=== PATIENT | female | born 1945 | race Caucasian/White ===

== ENCOUNTER → 2016-10-23 | Outpatient (CLI) | payer MEDICARE, BC ==
--- NOTE | 2016-10-23 08:16 | MM ---
Reason for exam: history of breast cancer, mastectomy. Last mammogram was performed 1 year ago. History: Patient is postmenopausal and has history of breast cancer at age 33. Family history of breast cancer in maternal aunt, breast cancer in maternal cousin at age 55, and premenopausal breast cancer in mother at age 40. Benign excisional biopsy of the right breast, December 2008. Cancelled Right Mammotome of the right breast, December 13, 2008. Mastectomy of the left breast, 1978. Took hormonal contraceptives for 2 years beginning at age 21. Took progesterone for 4 years beginning at age 55. Physical Findings: Nurse did not find any significant physical abnormalities on exam. MG Diagnostic Mammo RT w CAD CC and MLO view(s) were taken of the right breast. Prior study comparison: October 15, 2015, right breast MG 3d diag mammo w/cad RT. October 09, 2014, right breast MG diagnostic mammo RT w CAD. October 04, 2013, right diagnostic mammogram w/CAD. There are scattered fibroglandular densities. No significant new findings when compared with previous films. These results were verbally communicated with the patient and result sheet given to the patient on 10/23/16. ASSESSMENT: Negative, BI-RAD 1 RECOMMENDATION: Follow-up diagnostic mammogram of the right breast in 1 year.
== END | disposition home or self-care (01) ==
LOC: RADMAMWWP 07:38
PROVIDERS: ATTEND Internal Medicine Critical Care Medicine
DX: Z08 Encounter for follow-up examination after completed treatment for malignant neoplasm (principal); Z85.3 Personal history of malignant neoplasm of breast; Z80.3 Family history of malignant neoplasm of breast

== ENCOUNTER → 2017-03-20 | Outpatient (CLI) | payer MEDICARE, BC ==
[2017-03-20 08:25] LABS: Basophils % (A) 1 %; CH 30.8; CHCM 32.7; Eosinophils # (A) 0.1 k/uL (0-0.7); Eosinophils % (A) 3 %; HCT 38.6 % (34.0-46.0); HGB 12.4 gm/dL (11.4-16.0); Luc # (Auto) 0.16; Luc % (Auto) 3; Lymphocytes # (A) 1.3 k/uL (1.0-4.8); Lymphocytes % (A) 26 %; MCH 30.6 pg (25.0-35.0); MCHC 32.3 g/dL (31.0-37.0); MCV 94.8 fL (80.0-100.0); Monocytes # (A) 0.4 k/uL (0-1.0); Monocytes % (A) 8 %; Neutrophils # (A) 2.9 k/uL (1.3-7.7); Neutrophils % (A) 60 %; RBC 4.07 m/uL (3.80-5.40); RDW 13.9 % (11.5-15.5); WBC 4.9 k/uL (3.8-10.6); WBC (Perox) 5.03
[2017-03-20 13:09] LABS: ALT 46 U/L (9-52); AST 28 U/L (14-36); Alkaline Phosphatase 89 U/L (38-126); Anion Gap 12 mmol/L; Bilirubin, Delta 0.3 mg/dL (0.0-0.2); Blood Urea Nitrogen 18 mg/dL (7-17); Calcium 9.9 mg/dL (8.4-10.2); Carbon Dioxide 25 mmol/L (22-30); Chloride 105 mmol/L (98-107); Cholesterol 194 mg/dL (<200); Glucose 99 mg/dL (74-99); HDL Cholesterol 41 mg/dL (40-60); Non-African American GFR(MDRD) >60 (>60 ml/min/1.73 sqM); Potassium 4.7 mmol/L (3.5-5.1); Sodium 142 mmol/L (137-145); Total Bilirubin 0.6 mg/dL (0.2-1.3); Total Protein 7.4 g/dL (6.3-8.2)
[2017-03-20 15:30] LABS: Iron Saturation 29.89 (12.00-45.00)
[2017-03-20 18:26] LABS: Vitamin B12 269 pg/mL
== END | disposition home or self-care (01) ==
LOC: LABWHC1 07:37
PROVIDERS: ATTEND Internal Medicine Critical Care Medicine
DX: E78.5 Hyperlipidemia, unspecified (principal); E55.9 Vitamin D deficiency, unspecified; R79.9 Abnormal finding of blood chemistry, unspecified; R73.9 Hyperglycemia, unspecified; J45.909 Unspecified asthma, uncomplicated; I10 Essential (primary) hypertension; R53.83 Other fatigue; M85.80 Other specified disorders of bone density and structure, unspecified site
CPT/HCPCS: 36415; 80053; 80061; 82248; 82306; 82607; 82728; 83036; 83540; 83550; 84439; 84443; 85025

== ENCOUNTER 2017-06-23 09:35 | Day surgery (SDC) | payer MEDICARE, BC ==
[2017-06-23 09:51] VITALS: TEMP 97.7
[2017-06-23] MEDS ORDERED: LACTATED RINGERS 1,000 ML IV ONE (10:02)
[2017-06-23] MEDS ORDERED: ATROPINE SULFATE 0.4 MG/ML 1 ML VIAL IM ONE (10:07)
[2017-06-23] MEDS ORDERED: LIDOCAINE 1% INJ 10MG/ML (20 ML MDV) ONE (10:50)
[2017-06-23] MEDS ORDERED: MIDAZOLAM 2 MG/2 ML VIAL ONE (10:50)
[2017-06-23] MEDS ORDERED: PROPOFOL 10 MG/ML 20 ML VIAL IV ONE (10:50)
[2017-06-23 11:27] VITALS: RESP 18
[2017-06-23 11:29] VITALS: BP 119/78; PULSE 102
[2017-06-23 17:37] LABS: RBC, Body Fluid 2 /uL
--- NOTE | 2017-06-23 19:53 | OP ---
OPERATIVE REPORT PROCEDURE: Bronchoscopy, airway examination and therapeutic lavage, bronchoalveolar lavage, right lower lobe PREOPERATIVE DIAGNOSIS: Acute bronchitis. POSTOPERATIVE DIAGNOSIS: Acute bronchitis. There was informed consent and universal timeout. The patient's procedure took place in room #1, [facility]. CHANGE HOUSE ATTENDANT provided unconscious sedation/general anesthesia. PROCEDURE DESCRIPTION: After the patient was adequately sedated and being fully monitored, the bronchoscope was inserted through the left nostril. It passed through the left nasopharynx into the oropharynx. The hypopharynx was identified and topicalized. The hypopharyngeal structures, including anterior commissure, true cords, false cords, arytenoids, piriform sinuses, right and left valleculae and epiglottis, all appeared normal. After topicalization, the bronchoscope was passed through the glottic opening into the trachea. Trachea appeared normal. Tracheal leni was sharp. There were some secretions noted in the right and left mainstem. The right and left mainstem were topicalized. Right upper lobe and its 3 segments, the right middle lobe and its 2 segments, right lower lobe and its 5 segments, the left upper lobe proper and its 2 segments, the lingula and its 2 segments and the left lower lobe and its 4 segments were all found to have similar findings of diffuse bronchitis. There was diffuse erythema and hyperemia in the airways. There was some mild mucosal friability. There were some thick yellow secretions noted, particularly in the right upper lobe, right lower lobe and to a lesser extent in the right middle lobe, left upper lobe proper and lingula as well as in the left lower lobe. The patient had the bronchoscope wedged into the right lower lobe, which is where most of the secretions were noted. BAL took place. Patient tolerated the procedure well. Next, saline was used to suction the rest of the airways. The patient tolerated the procedure well. The bronchoscope was withdrawn. There were no immediate complications. MMODL / IJN: [id number] /
[2017-06-24] MEDS ORDERED: ATROPINE SULFATE 0.4 MG/ML 1 ML VIAL IM ONE (05:00)
[2017-06-24] MEDS ORDERED: LACTATED RINGERS 1,000 ML IV ONE (05:00)
[2017-06-24] MEDS ORDERED: LIDOCAINE 2% (PF) 20 MG/ML 2 ML AMP INHALATION ONE (05:00)
[2017-06-24] MEDS ORDERED: ALBUTEROL NEB (CONC) 2.5 MG/0.5 ML INHALATION ONE (05:00)
== END 2017-06-23 12:00 | disposition home or self-care (01) ==
LOC: ORWHC2ENDO 09:35
PROVIDERS: ATTEND Internal Medicine Critical Care Medicine
DX: J20.9 Acute bronchitis, unspecified (principal); Z85.3 Personal history of malignant neoplasm of breast; J45.909 Unspecified asthma, uncomplicated; E03.9 Hypothyroidism, unspecified; F41.9 Anxiety disorder, unspecified; I48.91 Unspecified atrial fibrillation; E78.00 Pure hypercholesterolemia, unspecified; Z82.49 Family history of ischemic heart disease and other diseases of the circulatory system; Z80.3 Family history of malignant neoplasm of breast; Z79.51 Long term (current) use of inhaled steroids; Z79.899 Other long term (current) drug therapy; Z88.8 Allergy status to other drugs, medicaments and biological substances
CPT/HCPCS: 94640; 88108; 88305; 89050; 87252; 87070; 87205; 87116; 87102; 87206; 31624; J2250; J0461; J2001 ×2; J2704; 87496; 87498; 87502; 87529; 87798

== ENCOUNTER → 2018-03-19 | Outpatient (CLI) | payer MEDICARE, BC ==
--- NOTE | 2018-03-19 10:30 | MM ---
Reason for exam: additional evaluation requested from prior study. Last mammogram was performed 1 year and 5 months ago. History: Patient is postmenopausal and has history of breast cancer at age 33. Family history of breast cancer in maternal aunt, breast cancer in maternal cousin at age 55, and premenopausal breast cancer in mother at age 40. Benign excisional biopsy of the right breast, December 2008. Cancelled Right Mammotome of the right breast, December 13, 2008. Mastectomy of the left breast, 1978. Took hormonal contraceptives for 2 years beginning at age 21. Took progesterone for 4 years beginning at age 55. Physical Findings: Nurse did not find any significant physical abnormalities on exam. MG 3D Diag Mammo W/Cad RT CC, MLO, spot compression CC, spot compression MLO, and ML view(s) were taken of the right breast. Prior study comparison: October 23, 2016, right breast MG diagnostic mammo RT w CAD. October 15, 2015, right breast MG 3d diag mammo w/cad RT. There are scattered fibroglandular densities. Nodular density upper outer quadrant right breast is noted. On additional views appears less conspicious. These results were verbally communicated with the patient and result sheet given to the patient on 03/19/18. ASSESSMENT: Incomplete: need additional imaging evaluation, BI-RAD 0 RECOMMENDATION: Ultrasound of the right breast.
--- NOTE | 2018-03-19 10:31 | USB ---
Reason for exam: additional evaluation requested from abnormal screening. History: Patient is postmenopausal and has history of breast cancer at age 33. Family history of breast cancer in maternal aunt, breast cancer in maternal cousin at age 55, and premenopausal breast cancer in mother at age 40. Benign excisional biopsy of the right breast, December 2008. Cancelled Right Mammotome of the right breast, December 13, 2008. Mastectomy of the left breast, 1978. Took hormonal contraceptives for 2 years beginning at age 21. Took progesterone for 4 years beginning at age 55. US Breast Limited RT Right limited breast ultrasound including focal area of concern, retroareolar and axilla demonstrates no cystic or solid lesion seen. These results were verbally communicated with the patient and result sheet given to the patient on 03/19/18. ASSESSMENT: Probably benign, BI-RAD 3 RECOMMENDATION: Follow-up diagnostic mammogram of the right breast in 6 months.
== END | disposition home or self-care (01) ==
LOC: RADMAMWWP 08:11
PROVIDERS: ATTEND Internal Medicine Critical Care Medicine
DX: R92.8 Other abnormal and inconclusive findings on diagnostic imaging of breast (principal); Z85.3 Personal history of malignant neoplasm of breast
CPT/HCPCS: 77065; 76642; G0279; 77061

== ENCOUNTER → 2018-07-17 | Outpatient (CLI) | payer MEDICARE, BC ==
[2018-07-17 09:09] LABS: Basophils % (A) 1 %; Eosinophils # (A) 0.2 k/uL (0-0.7); Eosinophils % (A) 4 %; HCT 39.2 % (34.0-46.0); HGB 12.5 gm/dL (11.4-16.0); Lymphocytes # (A) 1.4 k/uL (1.0-4.8); Lymphocytes % (A) 33 %; MCH 29.8 pg (25.0-35.0); MCV 93.2 fL (80.0-100.0); Mean Platelet Volume 7.3; Monocytes # (A) 0.3 k/uL (0-1.0); Monocytes % (A) 7 %; Neutrophils # (A) 2.3 k/uL (1.3-7.7); Neutrophils % (A) 53 %; Platelet Count 330 k/uL (150-450); RDW 12.9 % (11.5-15.5); WBC 4.4 k/uL (3.8-10.6)
[2018-07-17 17:06] LABS: Albumin 4.4 g/dL (3.80-4.90); Albumin/Globulin Ratio 1.69 (1.20-2.10); Anion Gap 7.1 mmol/L (4.00-12.00); Calcium 9.9 mg/dL (8.7-10.3); Carbon Dioxide 29.9 mmol/L (21.6-31.8); Globulin 2.6 g/dL (1.6-3.3); Total Bilirubin 0.3 mg/dL (0.2-1.2)
[2018-07-17 20:19] LABS: Hemoglobin A1C 6.1 % (4.0-6.0)
== END | disposition home or self-care (01) ==
LOC: LABWHC1 08:38
PROVIDERS: ATTEND Internal Medicine Critical Care Medicine
DX: I10 Essential (primary) hypertension (principal); E78.2 Mixed hyperlipidemia; E03.9 Hypothyroidism, unspecified; F41.9 Anxiety disorder, unspecified; E55.9 Vitamin D deficiency, unspecified; R73.9 Hyperglycemia, unspecified; Z85.3 Personal history of malignant neoplasm of breast
CPT/HCPCS: 36415; 80053; 80061; 82306; 83036; 84439; 84443; 85025

== ENCOUNTER → 2018-10-06 | Outpatient (CLI) | payer MEDICARE, BC ==
--- NOTE | 2018-10-06 09:51 | MM ---
Reason for exam: follow-up at short interval from prior study. Last mammogram was performed 7 months ago. History: Patient is postmenopausal and has history of breast cancer at age 33. Family history of breast cancer in maternal aunt, breast cancer in maternal cousin at age 55, and premenopausal breast cancer in mother at age 45. Benign excisional biopsy of the right breast, December 2008. Cancelled Right Mammotome of the right breast, December 13, 2008. Mastectomy of the left breast, 1978. Took hormonal contraceptives for 2 years beginning at age 21. Took progesterone for 4 years beginning at age 55. Physical Findings: Nurse did not find any significant physical abnormalities on exam. MG 3D Diag Mammo W/Cad RT CC, MLO, and ML view(s) were taken of the right breast. Prior study comparison: March 19, 2018, right breast MG 3d diag mammo w/cad RT. October 23, 2016, right breast MG diagnostic mammo RT w CAD. Finding: Architectural distortion in the upper outer quadrant of the right breast consistent with excision biopsy in 2008. There is no discrete abnormality. These results were verbally communicated with the patient and result sheet given to the patient on 10/06/18. ASSESSMENT: Benign, BI-RAD 2 RECOMMENDATION: Follow-up diagnostic mammogram of the right breast in 1 year.
== END | disposition home or self-care (01) ==
LOC: RADMAMWWP 07:26
PROVIDERS: ATTEND Internal Medicine Critical Care Medicine
DX: R92.8 Other abnormal and inconclusive findings on diagnostic imaging of breast (principal); Z85.3 Personal history of malignant neoplasm of breast
CPT/HCPCS: 77065; G0279; 77061

== ENCOUNTER → 2019-05-02 | Outpatient (CLI) | payer MEDICARE, BC ==
--- NOTE | 2019-05-02 18:17 | MR ---
EXAMINATION TYPE: MR knee RT wo con DATE OF EXAM: 05/02/2019 COMPARISON: None HISTORY: Bandar knee pain TECHNIQUE: Multiplanar, multisequence imaging of the right knee is performed without IV contrast. FINDINGS: MEDIAL MENISCUS: There is grade 3 abnormal signal involving the posterior horn of the medial meniscus compatible with a tear. LATERAL MENISCUS: Anterior and posterior horns are intact without tear. CRUCIATE LIGAMENTS: The anterior and posterior cruciate ligaments are intact and unremarkable. COLLATERAL LIGAMENTS: Lateral collateral ligament is intact. There is signal surrounding the medial c ollateral ligament compatible with a MCL strain with no definite tear. EXTENSOR MECHANISM: Visualized quadriceps and patellar tendons are intact. EFFUSION: No significant suprapatellar joint effusion. POPLITEAL CYST: There is a 1.4 x 1 x 3.6 cm popliteal fossa cyst.. TRICOMPARTMENT SPACES: There is narrowing of the patellofemoral joint as well as the medial and later al compartment of the knee joint with most marked findings involving the medial compartment. There is grade III chondromalacia involving the articular femoral cartilage involving the medial compartment and involving both the medial and lateral patellar facets. No erosive changes. BONE MARROW SIGNAL: No focal abnormal marrow signal is appreciated. IMPRESSION: 1. Osteoarthritis with grade III chondromalacia involving patellofemoral cartilage and medial articul ar femoral cartilage. 2. Posterior horn medial meniscal tear. 3. MCL strain with no definite tear. 4. Popliteal fossa cyst measuring 1.4 x 1 x 3.6 cm
--- NOTE | 2019-05-04 15:23 | MR ---
EXAMINATION TYPE: MR knee LT wo con DATE OF EXAM: 05/02/2019 COMPARISON: None HISTORY: Bandar knee pain TECHNIQUE: Multiplanar, multisequence imaging of the left knee is performed without IV contrast. FINDINGS: MEDIAL MENISCUS: There is PseudoExtrusion of the medial meniscus with a complex tear involving the po sterior horn and body. LATERAL MENISCUS: Simple linear tear of the posterior horn lateral meniscus. CRUCIATE LIGAMENTS: Posterior cruciate ligament is intact. The anterior cruciate ligament also appear s to be intact. There is some ill definition the posterior fibers which could be related to an ACL st rain. COLLATERAL LIGAMENTS: The medial collateral ligament and lateral collateral ligament complex are inta ct and unremarkable. EXTENSOR MECHANISM: Visualized quadriceps and patellar tendons are intact. EFFUSION: Small amount of fluid is seen in the suprapatellar bursa.. POPLITEAL CYST: There is a 1.5 x 2.7 x 4.9 cm popliteal fossa cyst which contains heterogeneous sign al may represent a complicated cyst. TRICOMPARTMENT SPACES: There is marked narrowing of the medial compartment of the knee joint and chanel llofemoral joint with hypertrophic spurring. No erosive changes. There is cartilage loss involving th e medial patellar facet and medial femoral articular cartilage compatible with grade III chondromalac ia. BONE MARROW SIGNAL: There is abnormal signal within the medial tibial plateau which likely is reactiv e bone marrow edema secondary to severe arthritic changes. IMPRESSION: 1. Severe osteoarthritis. Findings result in grade III chondromalacia of the medial femoral and tibia l articular cartilage and medial patellar facet. 2. Complex tear posterior horn and body medial meniscus likely degenerative secondary to severe osteo arthritic changes with PseudoExtrusion of the meniscus. 3. Simple linear tear posterior horn lateral meniscus. 4. Complicated popliteal fossa cyst containing heterogeneous signal. There may be a soft tissue ossif ication or previous hemorrhage within the cyst correlate clinically.
== END | disposition home or self-care (01) ==
LOC: RADMRIMAIN 17:11
PROVIDERS: ATTEND Internal Medicine Critical Care Medicine
DX: S83.241A Other tear of medial meniscus, current injury, right knee, initial encounter (principal); S83.411A Sprain of medial collateral ligament of right knee, initial encounter; S83.232A Complex tear of medial meniscus, current injury, left knee, initial encounter; S83.282A Other tear of lateral meniscus, current injury, left knee, initial encounter; M22.41 Chondromalacia patellae, right knee; M22.42 Chondromalacia patellae, left knee; M71.22 Synovial cyst of popliteal space [Baker], left knee; M71.21 Synovial cyst of popliteal space [Baker], right knee; M17.0 Bilateral primary osteoarthritis of knee

== ENCOUNTER → 2019-08-05 | Outpatient (CLI) | payer MEDICARE, BC ==
[2019-08-05 13:09] LABS: HCT 40.7 % (34.0-46.0); HGB 12.8 gm/dL (11.4-16.0); MCH 29.7 pg (25.0-35.0); MCHC 31.6 g/dL (31.0-37.0); MCV 94.1 fL (80.0-100.0); Mean Platelet Volume 8.5; Platelet Count 368 k/uL (150-450); RBC 4.32 m/uL (3.80-5.40); RDW 12.8 % (11.5-15.5); WBC 7.1 k/uL (3.8-10.6)
[2019-08-05 13:12] LABS: Albumin 4.5 g/dL (3.5-5.0); Calcium 10.7 mg/dL (8.4-10.2); Potassium 4.7 mmol/L (3.5-5.1); Total Bilirubin 0.5 mg/dL (0.2-1.3)
[2019-08-05 13:15] LABS: INR 0.9 (<1.2); Partial Thromboplastin Time 24.1 sec (22.0-30.0); Prothrombin Time 9.7 sec (9.0-12.0)
[2019-08-05 13:16] LABS: Appearance,Urine Clear (Clear); Bilirubin,Urine Negative (Negative); Blood,Urine Negative (Negative); Color,Urine Light Yellow; Glucose,Urine (UA) Negative (Negative); Ketones,Urine Negative (Negative); Leukocyte Esterase,Urine Negative (Negative); Nitrite,Urine Negative (Negative); PH, Urine 5.5 (5.0-8.0); Protein,Urine Negative (Negative); Specific Gravity,Urine 1.008 (1.001-1.035); Urobilinogen,Urine <2.0 mg/dL (<2.0)
== END | disposition home or self-care (01) ==
LOC: LABPAT 10:34
PROVIDERS: ATTEND Orthopaedic Surgery
DX: Z01.812 Encounter for preprocedural laboratory examination (principal); Z51.81 Encounter for therapeutic drug level monitoring; Z79.01 Long term (current) use of anticoagulants
CPT/HCPCS: 36415; 80053; 81003; 85027; 85610; 85730; 87070

== ENCOUNTER 2019-08-15 08:34 | Day surgery (SDC) | payer MEDICARE, BC ==
[2019-08-09 12:52] VITALS: BMI 27.4
[~2019-08-15 08:34] MED LIST: ACETAMINOPHEN TAB 500 MG TAB PO ONE; DEXAMETHASONE SOD PHOSPHATE 10 MG/ML 1 ML VIAL IV ONE; GABAPENTIN 300 MG CAP PO ONE; LIDOCAINE 1% 20 ML VIAL (10MG/ML) FOR IV START INTRADERMA PRN; MELOXICAM 7.5 MG TAB PO ONE; MIDAZOLAM 2 MG/2 ML VIAL IV PRN; ONDANSETRON 4 MG/2 ML VIAL IVP ONE; ROPIVACAINE 246.25 MG, EPINEPHrine 0.5 MG, KETOROLAC 30 MG, cloNIDine HCL/PF 80 MCG, WA... MISCELLANE ONE; TRANEXAMIC ACID 1,000 MG in SODIUM CHLORIDE 0.9% 100 ML IVPB ONE; fentaNYL (PF) 50 MCG/ML 2 ML AMP IV PRN
[2019-08-15] MEDS: LACTATED RINGERS 1,000 ML IV SCH ×4 (09:07→23:40)
[2019-08-15] MEDS ORDERED: MIDAZOLAM 2 MG/2 ML VIAL IV ONE (09:23)
[2019-08-15] MEDS ORDERED: SODIUM CHLORIDE 0.9% 100 ML BAG ONE (09:43)
[2019-08-15] MEDS ORDERED: PHENYLEPHRINE-0.9% NACL SYG 1 MG/10 ML SYRINGE ONE (09:43)
[2019-08-15] MEDS ORDERED: fentaNYL (PF) 50 MCG/ML 2 ML AMP ONE (09:43)
[2019-08-15] MEDS ORDERED: MIDAZOLAM 2 MG/2 ML VIAL ONE (09:43)
[2019-08-15] MEDS ORDERED: TRANEXAMIC ACID 1,000 MG/10 ML VIAL ONE (09:43)
[2019-08-15] MEDS ORDERED: PROPOFOL 10 MG/ML 20 ML VIAL IV ONE (09:43)
[2019-08-15] MEDS ORDERED: ceFAZolin 3,000 MG in SODIUM CHLORIDE 0.9% IRRIGATIO 3,000 ML IRRIGATION ONE (10:18)
[2019-08-15] MEDS ORDERED: ROPIVACAINE 0.2%-NS ON-Q PUMP 1,090 MG, EMPTY PAIN BALL 1 EACH MISCELLANE PRN (10:47)
--- NOTE | 2019-08-15 11:13 | P.OP ---
Date of Procedure: 08/15/19 Preoperative Diagnosis: Severe osteoarthritis left knee Postoperative Diagnosis: Severe osteoarthritis left knee Procedure(s) Performed: Left total knee arthroplasty using [employer] patient specific guides Implants: Fox and Nephew Cruciate Retaining Journey II CR Oxinium Femoral Component size 4, left Fox & Nephew Journey Nonporous Tibial Baseplate size 2, left Fox & Nephew Journey II CR, XLPE Articular Insert, 9 mm, size 1-2 Fox & Nephew Brittany II Resurfacing Patellar Component, Oval, 29 mm All components were cemented using Palacose R bone cement. [employer] patient specific guides The articulation is Oxinium on polyethylene. Anesthesia: spinal Surgeon: Kaden Jerez Broodmare Foreman #1: Aníbal Espinoza Estimated Blood Loss (ml): 25 Pathology: other (Bone and cartilage) Condition: stable Disposition: PACU Indications for Procedure: After failure of conservative treatment we discussed the surgical and nonsurgical treatment options at length. Patient wishes to proceed with a total knee arthroplasty. Complications specific to this procedure were discussed at length, including but not limited to infection, bleeding, stiffness, and nerve injury. Patient is aware of all these complications and informed consent was obtained Operative Findings: The operative findings are consistent with severe osteoarthritis left knee Description of Procedure: Patient was seen in the preoperative area consent was reviewed and operative site was marked with a skin marker. An adductor canal pain catheter was placed by anesthesia in the preoperative area. Patient was then brought to the operating room and given preoperative antibiotics intravenously. A spinal anesthetic was administered by the anesthesia department. A tourniquet was placed on the upper thigh and the lower extremity was prepped and draped in usual sterile fashion. A gram of transexamic acid was given. A universal timeout was then performed which confirmed the patient's name, surgical site, ALLERGIES, and consent. The lower extremity was then exsanguinated and tourniquet was inflated to 250 mmHg. A standard and anterior midline approach to the knee was performed. The skin and subcutaneous tissue was dissected down to the patellar tendon. A medial parapatellar arthrotomy was then performed. The knee was then extended, the patellar was everted, and the knee was again flexed. Anterior horns of both menisci were excised, and a release was performed to the posterior medial aspect of the knee. On gross visual inspection, there was complete loss of articular cartilage in the medial and patellofemoral joint spaces. There was also significant cartilage damage in the lateral compartment. There were multiple periarticular osteophytes. The patient specific guide was placed on the distal femur, and pinned in place. Using the patient specific guide, the distal femoral cut was performed. The cutting block was then removed and the cut was checked for flatness. The appropriate 5-in-1 cutting block was then pinned in place through the holes that were drilled through the patient specific guide. The anterior condyles were cut without notching. The posterior and chamfer cuts were performed while protecting the collateral ligaments. The cutting block was then removed. Attention was then directed to the tibia. The remaining ACL was removed with a Ronguer, and the tibia was then gently subluxed forward with a large bent knee retractor. Any remaining menisci was excised. The posterior lateral corner was cauterized in order to cauterize the lateral geniculate artery. The patient specific guide for the tibia was then placed and was held in place with pins. Pinholes were then placed for rotation of the tibial component as well. Proximal tibia was then cut and sized. Next trials were then placed with the appropriate-sized insert. The knee was able to fully extend and flex to 130 and was stable throughout all range of motion. The knee was then extended, patella everted. Patella was then measured, and then using an osteotomy guide, the patella was cut at the appropriate level. The patella was then measured and drilled and the patella trial was then placed. The knee was then taken through range of motion with the patella trial and the patella tracked normally. The knee was then extended patella trial was then removed and the patella was everted. Knee was then flexed and lug holes were drilled through the femoral trial and the femoral trial was then removed. The tibial was then exposed, and the tibial broach guide was then pinned in place after it was set for the appropriate rotation to allow for the most coverage without overhang. The tibia was then reamed and broached. The cut surfaces of bone were then irrigated with pulsatile lavage. The posterior structures were injected with the ropivacaine solution. The knee was also irrigated with Irrisept solution. The components were then opened, the cement was mixed, and the components were then cemented in place. The cement was allowed to harden with the knee in full extension. While the cement was hardening, the remaining soft tissues were then injected with a ropivacaine solution, which consisted of 246.25 mg of ropivacaine, 0.5 mg of epinephrine, 30 mg of Toradol, 80 g of clonidine, and 48.45 mL of sterile water, for a total of 100 mL of fluid injected. After the cemented hardened. The tourniquet was released, and hemostasis was obtained. A second gram of transexamic acid was given. The knee was again irrigated. The knee was again taken through range of motion and found to be stable throughout all range of motion of 0-130, and the patella tracked normally. The fascia was then closed with #2 strata fix suture. The subcutaneous tissue was closed with 3-0 Vicryl and 3-0 strata fix. Dermabond glue was used for the skin and placed with the knee in flexion. The patient was placed in a sterile silver dressing. Patient was then transferred to recovery room in stable condition. The grants and contracts assistant PILAR Milligan was required due the complexity surgery and the need for a skilled director medical surgical. She assisted in positioning, draping, retraction, and closure of the wound.
[2019-08-15] MEDS ORDERED: ONDANSETRON 4 MG/2 ML VIAL IVP PRN (11:48)
[2019-08-15] MEDS ORDERED: NALOXONE 0.4 MG/ML 1 ML VIAL IV PRN (11:48)
[2019-08-15] MEDS ORDERED: MAGNESIUM HYDROXIDE 2,400 MG/10 ML CUP PO PRN (11:48)
[2019-08-15] MEDS ORDERED: HYDROcodone/APAP 5-325MG 1 EACH TAB PO PRN ×2 (11:48)
[2019-08-15] MEDS ORDERED: DIAZEPAM 5 MG TAB PO PRN ×2 (11:48)
[2019-08-15] MEDS ORDERED: HYDROmorphone 0.5 MG/0.5 ML SYRINGE IVP PRN ×3 (11:48)
[2019-08-15] MEDS ORDERED: hydrOXYzine PAMOATE 25 MG CAP PO PRN (11:48)
--- NOTE | 2019-08-15 12:05 | XR ---
EXAMINATION TYPE: XR knee limited LT DATE OF EXAM: 08/15/2019 COMPARISON: NONE TECHNIQUE: Two views submitted HISTORY: Post op FINDINGS: There is a prosthetic knee in near anatomic alignment. There is soft tissue edema and emphysema. IMPRESSION: 1. Postoperative change. Appears in near-anatomic alignment
[2019-08-15] MEDS ORDERED: LACTATED RINGERS 1,000 ML IV ONE (12:40)
[2019-08-15] MEDS ORDERED: ALPRAZolam 0.5 MG TAB PO PRN (15:06)
--- NOTE | 2019-08-15 15:14 | P.CNPUL ---
History of Present Illness Consult date: 08/15/19 Chief complaint: Left knee arthroplasty History of present illness: This is a very pleasant 74-year-old female patient underwent a left knee arthroplasty and currently she is postop. She is doing well. Laying comfortably in bed. Hemodynamically stable. Room air oxygen. No nausea or vomiting. No chest pain. Her pain is under good control and the surgical wound site is dry clean and intact and there is cold ice packs applied to the wounds. Intraoperative blood loss has been minimal. She is awake and alert and she is following commands and answering questions. No altered mentation. The surgery was done under spinal anesthesia. Review of Systems Constitutional: Denies chills, Denies fever Eyes: denies as per HPI, denies blurred vision, denies bulging eye, denies decreased vision, denies diplopia, denies discharge, denies dry eye, denies irritation, denies itching, denies pain, denies photophobia, denies loss of peripheral vision, denies loss of vision, denies tunnel vision/blind spots Ears: deny: decreased hearing, ear discharge, earache, tinnitus Ears, nose, mouth and throat: Denies headache, Denies sore throat Breasts: absent: as per HPI, change in shape, gynecomastia, masses, nipple discharge, pain, skin changes, swelling Cardiovascular: Denies chest pain, Denies shortness of breath Respiratory: Reports as per HPI Gastrointestinal: Reports as per HPI Genitourinary: Denies dysuria, Denies hematuria Menstruation: Reports as per HPI Musculoskeletal: Reports as per HPI Musculoskeletal: bilateral: knee pain, absent: ankle pain, ankle stiffness, ankle swelling Integumentary: Denies pruritus, Denies rash Neurological: Denies numbness, Denies weakness Psychiatric: Reports as per HPI Endocrine: Reports as per HPI Hematologic/Lymphatic: Reports as per HPI Allergic/Immunologic: Reports as per HPI Past Medical History Past Medical History: Atrial Fibrillation, Asthma, Cancer, Hyperlipidemia, Hypertension, Osteoarthritis (OA), Thyroid Disorder Additional Past Medical History / Comment(s): breast cancer >40 yrs. 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, no a-fib since ablation History of Any Multi-Drug Resistant Organisms: None Reported Past Surgical History: Breast Surgery, Cardiac Ablation, Hysterectomy, Joint Replacement, Orthopedic Surgery Additional Past Surgical History / Comment(s): left modified mastectomy, arthroscopic left knee, splenectomy, tlk Past Anesthesia/Blood Transfusion Reactions: Previous Problems w/ Anesthesia Additional Past Anesthesia/Blood Transfusion Reaction / Comment(s): had problem w/spinal that "didn't take" years ago Past Psychological History: Anxiety Smoking Status: Never smoker Past Alcohol Use History: Rare Past Drug Use History: None Reported - Past Family History Brother(s) Family Medical History: Deep Vein Thrombosis (DVT) Mother Family Medical History: Cancer Additional Family Medical History / Comment(s): breast cancer Medications and Allergies Home Medications Medication Instructions Recorded Confirmed Type ALPRAZolam [Xanax] 0.5 mg PO DAILY PRN 06/23/17 08/09/19 History Budesonide/Formoterol Fumarate 160 inhalation IN DAILY 06/23/17 08/09/19 History [Symbicort 160-4.5 Mcg Inhaler] Calcium Carbonate [Calcium] 1,200 mg PO DAILY 06/23/17 08/09/19 History Levothyroxine Sodium [Synthroid] 50 mcg PO DAILY 06/23/17 08/09/19 History Losartan [Cozaar] 50 mg PO DAILY 06/23/17 08/09/19 History Montelukast [Singulair] 10 mg PO HS 06/23/17 08/09/19 History C,E,Zinc,Copper 11/Jiuir4b/Lut 1 each PO DAILY 08/09/19 08/09/19 History [Ocuvite Adult 50 Plus Softgel] Cholecalciferol [Vitamin D3 (25 1,000 unit PO DAILY 08/09/19 08/09/19 History Mcg = 1000 Iu)] Gemfibrozil(Unknown Dose) 1 tab PO BID 08/09/19 08/09/19 History Sertraline HCl [Zoloft] 100 mg PO DAILY 08/09/19 08/09/19 History Allergies Allergy/AdvReac Type Severity Reaction Status Date / Time Msflogj-Mxf-Mie Reductase AdvReac MUSCLE Verified 08/15/19 09:09 Inhibitor RIGIGITY/WEAKNESS Physical Exam Vitals: Vital Signs Temp Pulse Pulse Resp BP Pulse Ox 08/15/19 14:48 98.5 F 75 18 113/62 92 L 08/15/19 14:01 81 18 106/59 95 08/15/19 13:31 78 18 115/59 94 L 02/17/20 13:00 79 18 117/56 93 L 08/15/19 12:30 77 18 106/58 92 L 08/15/19 12:15 76 18 109/56 94 L 08/15/19 12:00 72 16 100/55 94 L 08/15/19 11:42 97.8 F 75 16 108/57 95 08/15/19 09:38 68 16 128/68 95 08/15/19 09:03 97.4 F L 72 14 128/69 97 Intake and Output 08/15/19 08/15/19 08/15/19 06:59 14:59 22:59 Intake Total 1401 Output Total 25 Balance 1376 Intake: IV 1401 Output: Estimated Blood Loss 25 Other: Weight 72.6 kg The patient appeared well nourished and normally developed. Vital signs as documented. Head exam is unremarkable. No scleral icterus or corneal arcus noted. Neck is without jugular venous distension, thyromegaly, or carotid bruits. Carotid upstrokes are brisk bilaterally. Lungs are clear to auscultation and percussion. Cardiac exam reveals the PMI to be normally sized and situated. Rhythm is regular. First and second heart sounds normal. No murmurs, rubs or gallops. Abdominal exam reveals normal bowel sounds, no masses, no organomegaly and no aortic enlargement. Extremities are nonedematous and both femoral and pedal pulses are normal. The patient has a pain pump in her left upper thigh and the surgical wound to the left knee is dressed appropriately and the dressing is dry clean and intact. Examination of the skin revealed no evidence of significant rashes, suspicious appearing nevi or other concerning lesions. Neurologically the patient is awake and alert and there is no focal neurological deficits. Assessment and Plan Plan: 1 left knee arthroplasty and the patient is postop day #0. Pain is under good control the patient is hemodynamically stable. Surgery was done under spinal anesthesia. 2 chronic knee pain secondary to osteoarthritis 3 history of paroxysmal atrial fibrillation post-ablation rhythm is sinus 4 mild intermittent bronchial asthma 5 remote history of breast cancer 6 remote history of ITP 7 hypothyroidism 8 hypertension 9 hyperlipidemia Plan Proceed with pain control Incentive spirometer Early mobility Outpatient medications have been resumed Hemodynamically stable We'll continue to follow. Routine prophylaxis for DVT per surgical protocol.
[2019-08-15] MEDS: ASPIRIN 325 MG TAB PO SCH (20:28)
[2019-08-15] MEDS ORDERED: MONTELUKAST 10 MG TAB PO SCH (21:00)
[2019-08-15] MEDS ORDERED: SENNOSIDES-DOCUSATE SODIUM 1 EACH TAB PO SCH (21:00)
[2019-08-16] MEDS ORDERED: LEVOTHYROXINE 50 MCG TAB PO SCH (06:30)
[2019-08-16 07:38] LABS: Basophils % (A) 0 %; Eosinophils % (A) 0 %; HCT 31.2 % (34.0-46.0); HGB 10.2 gm/dL (11.4-16.0); Lymphocytes # (A) 1.8 k/uL (1.0-4.8); Lymphocytes % (A) 15 %; MCHC 32.6 g/dL (31.0-37.0); MCV 91.8 fL (80.0-100.0); Mean Platelet Volume 8.5; Monocytes # (A) 0.6 k/uL (0-1.0); Monocytes % (A) 5 %; Neutrophils # (A) 9.2 k/uL (1.3-7.7); Neutrophils % (A) 78 %; Platelet Count 300 k/uL (150-450); RDW 12.5 % (11.5-15.5); WBC 11.8 k/uL (3.8-10.6)
--- NOTE | 2019-08-16 08:04 | P.ANPRN ---
Procedure Note - Anesthesia - Nerve Block Performed Left Adductor Canal Infusion Time Out Performed: Yes Date of Procedure: 08/15/19 Procedure Start Time: :24 Procedure Stop Time: :34 Location of Patient: PreOp Indication: Acute Post-Operative Pain, Requested by Surgeon Sedation Type: Sedate with meaningful contact maintained Preparation: Sterile Prep, Sterile Dressing Position: Supine Catheter: Indwelling Needle Types: Pajunk Needle Gauge: 21 Ultrasound used to visualize needle placement: Yes Ultrasound used to observe medication spread: Yes Resistance on Injection: Normal Image Stored and Saved: Yes Events: Uneventful and Well Tolerated (ropi .5% 20cc plus dexamethasone 4mg)
[2019-08-16 08:15] VITALS: BP 120/66; PULSE 66; RESP 16; TEMP 98.6
[2019-08-16] MEDS: LACTATED RINGERS 1,000 ML IV SCH ×2 (08:17→08:18)
[2019-08-16] MEDS: ASPIRIN 325 MG TAB PO SCH (08:43)
[2019-08-16] MEDS ORDERED: CHOLECALCIFEROL 1,000 UNIT TAB PO SCH (09:00)
[2019-08-16] MEDS ORDERED: CALCIUM CARB-VIT D 500MG-200UN 1 EACH TAB PO SCH (09:00)
[2019-08-16] MEDS ORDERED: SYMBICORT 160-4.5 MCG INHALER INHALATION SCH (09:00)
[2019-08-16] MEDS ORDERED: SERTRALINE 100 MG TAB PO SCH (09:00)
[2019-08-16] MEDS ORDERED: LOSARTAN 50 MG TAB PO SCH (09:00)
--- NOTE | 2019-08-16 09:22 | P.DS ---
Providers Date of admission: 08/15/2019 Expected date of discharge: 08/16/19 Attending physician: Kaden Jerez Consults: 08/15/19 11:48 Consult Physician Routine Consulting Provider: Isaac Mason Reason/Comments: Medical management Do you want consulting provider notified?: Yes Primary care physician: Isaac Mason - Discharge Diagnosis(es) (1) Atrial fibrillation Current Visit: Yes Status: Acute (2) Hyperlipidemia Current Visit: Yes Status: Acute (3) Hypertension Current Visit: Yes Status: Acute (4) Thyroid disorder Current Visit: Yes Status: Acute (5) Asthma Current Visit: Yes Status: Acute (6) Osteoarthritis of left knee Current Visit: Yes Status: Acute (7) Status post total left knee replacement Current Visit: Yes Status: Acute Hospital Course: This is a pleasant 74-year-old female who presented with severe osteoarthritis of the left knee who failed outpatient conservative therapy. She was admitted for a left total knee arthroplasty. The patient tolerated the procedure well and did well postoperatively. She has been working with therapy to ambulate the hallways. She feels she is ready for discharge home. Her pain is adequately controlled. She continues to use a On-Q pain pump for pain control. Condition on day of discharge stable. Patient will be discharged home. Patient was cleared preoperatively for surgery by Dr. Mason. Patient currently denies any nausea, vomiting, fever, or chills. Patient is eating and voiding freely without difficulty. Patient may shower silver and Tegaderm dressing intact. Patient may shower without a dressing intact if the incision continues to remain dry over the next 72 hours. Patient may remove silver and Tegaderm dressing in 3 days and shower without a dressing at that time. Patient may weight-bear as tolerated on the left lower extremity. She may use a walker to aid in ambulation as needed. Patient should avoid excessive activity with the left lower extremity. Patient may elevate apply ice over the left knee for comfort support as needed. Patient has a medical history which includes atrial fibrillation, hyperlipidemia, hypertension, thyroid disorder, and asthma. Prescription is written, signed, provided case management for a walker at the time of discharge. MAPS has been reviewed today, 08/16/2019, with an Overall Overdose Risk Score of 220. An "Opiod Start Talking" Form has been signed and placed in the patient's chart. A prescription has been written for Narco 7.5 mg/325 mg 1-2 tabs every 6 hours as need for pain, dispense #42. Patient is also given a prescription for aspirin 325 mg 1 tab twice a day, dispensed #60. Patient should take this prescription as prescribed until completion of the prescription. Patient will continue with On-Q pain pump as controlled by anesthesia. Physical Exam Total Knee Arthroplasty: Status post surgical day number 1 Patient is awake, alert, and oriented 3 Vital signs stable Good chest excursion with deep inspiration and expiration No signs or symptoms of DVT; no calf pain Dressing over the left knee is clean, dry, and intact; no erythema, purulence, or signs of infection Range of motion of the left knee Patient has full foot and ankle motion without difficulty bilateral lower extremities Dorsiflexion, plantar flexion, and extensor hallucis longus positive sustained bilaterally Neurovascular status left lower extremity intact Capillary refill lower extremity is bilaterally less than 2 seconds Procedures: Left total knee arthroplasty Patient Condition at Discharge: Stable Plan - Discharge Summary Discharge Rx Participant: Yes New Discharge Prescriptions: New Aspirin 325 mg PO BID #60 tab HYDROcodone/APAP 7.5-325MG [[place] 7.5-325] 1 - 2 each PO Q6HR PRN #42 tab PRN Reason: Pain Continue Montelukast [Singulair] 10 mg PO HS Levothyroxine Sodium [Synthroid] 50 mcg PO DAILY ALPRAZolam [Xanax] 0.5 mg PO DAILY PRN PRN Reason: Anxiety Calcium Carbonate [Calcium] 1,200 mg PO DAILY Budesonide/Formoterol Fumarate [Symbicort 160-4.5 Mcg Inhaler] 160 inhalation IN DAILY Losartan [Cozaar] 50 mg PO DAILY Cholecalciferol [Vitamin D3 (25 Mcg = 1000 Iu)] 1,000 unit PO DAILY Sertraline HCl [Zoloft] 100 mg PO DAILY Gemfibrozil(Unknown Dose) 1 tab PO BID C,E,Zinc,Copper 11/Dqgpi6n/Lut [Ocuvite Adult 50 Plus Softgel] 1 each PO DAILY Discharge Medication List ALPRAZolam [Xanax] 0.5 mg PO DAILY PRN 06/23/17 [History] Budesonide/Formoterol Fumarate [Symbicort 160-4.5 Mcg Inhaler] 160 inhalation IN DAILY 06/23/17 [History] Calcium Carbonate [Calcium] 1,200 mg PO DAILY 06/23/17 [History] Levothyroxine Sodium [Synthroid] 50 mcg PO DAILY 06/23/17 [History] Losartan [Cozaar] 50 mg PO DAILY 06/23/17 [History] Montelukast [Singulair] 10 mg PO HS 06/23/17 [History] C,E,Zinc,Copper 11/Yxuaa0q/Lut [Ocuvite Adult 50 Plus Softgel] 1 each PO DAILY 08/09/19 [History] Cholecalciferol [Vitamin D3 (25 Mcg = 1000 Iu)] 1,000 unit PO DAILY 08/09/19 [History] Gemfibrozil(Unknown Dose) 1 tab PO BID 08/09/19 [History] Sertraline HCl [Zoloft] 100 mg PO DAILY 08/09/19 [History] Aspirin 325 mg PO BID #60 tab 08/16/19 [Rx] HYDROcodone/APAP 7.5-325MG [[place] 7.5-325] 1 - 2 each PO Q6HR PRN #42 tab 08/16/19 [Rx] Follow up Appointment(s)/Referral(s): Kaden Jerez DO [Doctor of Osteopathic Medicine] - 08/31/19 9:45 am (Patient may follow-up with Dr. Kaden Jerez at [facility] in 2-3 weeks following discharge. ) Activity/Diet/Wound Care/Special Instructions: 1. Patient may weight-bear as tolerated on left lower extremity 2. Patient may use a walker to aid in ambulation as needed 3. Keep incision or left knee clean, dry, and intact 4. Patient may shower without a dressing intact over the left knee if incision remains dry over the next 72 hours 5. Patient is encouraged to elevate and apply ice over the left knee as needed for comfort and support 6. Continue with On-Q pain pump for pain control as prescribed by anesthesia 7. Take medications as prescribed Discharge Disposition: HOME WITH HOME HEALTH SERVICES
[2019-08-16] MEDS ORDERED: SYMBICORT 160-4.5 MCG INHALER INHALATION ONE (12:06)
== END 2019-08-16 11:10 | disposition home health service (06) ==
LOC: OR 08:34 → 4SSUR 14:04 → OR 08-16 11:10
PROVIDERS: ATTEND Orthopaedic Surgery
DX: M17.12 Unilateral primary osteoarthritis, left knee (principal); I10 Essential (primary) hypertension; E78.5 Hyperlipidemia, unspecified; R63.5 Abnormal weight gain; E03.9 Hypothyroidism, unspecified; J98.4 Other disorders of lung; I48.91 Unspecified atrial fibrillation; H81.13 Benign paroxysmal vertigo, bilateral; F32.9 Major depressive disorder, single episode, unspecified; Z97.3 Presence of spectacles and contact lenses; Z90.710 Acquired absence of both cervix and uterus; Z85.3 Personal history of malignant neoplasm of breast; Z90.81 Acquired absence of spleen; Z96.652 Presence of left artificial knee joint; Z82.49 Family history of ischemic heart disease and other diseases of the circulatory system; Z80.3 Family history of malignant neoplasm of breast; F41.9 Anxiety disorder, unspecified; E78.00 Pure hypercholesterolemia, unspecified; J45.909 Unspecified asthma, uncomplicated; Z90.12 Acquired absence of left breast and nipple; Z79.3 Long term (current) use of hormonal contraceptives; Z79.51 Long term (current) use of inhaled steroids; Z79.899 Other long term (current) drug therapy; Z88.8 Allergy status to other drugs, medicaments and biological substances
CPT/HCPCS: 97161; 64448; 76942; 85025; 88300; 73560; 27447; C1713; C1776; J2250; J0171; J1100; J0690 ×3; J2405; J1885; J2795 ×2; J0735

== ENCOUNTER 2020-04-26 18:59 | Emergency (ER) | payer MEDICARE, BC ==
[2020-04-26 19:09] VITALS: TEMP 98.4
--- NOTE | 2020-04-26 19:55 | XR ---
EXAMINATION TYPE: XR shoulder complete LT DATE OF EXAM: 04/26/2020 COMPARISON: NONE HISTORY: Shoulder pain TECHNIQUE: 4 views FINDINGS: I see no fracture nor dislocation. Joint spaces are normal. There are no pathologic calcifi cations. IMPRESSION: Negative left shoulder exam.
[2020-04-26] MEDS ORDERED: ACETAMINOPHEN TAB 325 MG TAB PO STA (20:11)
[2020-04-26 20:18] VITALS: BP 126/88; PULSE 80; RESP 12
--- NOTE | 2020-04-26 20:34 | CT ---
EXAMINATION TYPE: CT brain edine wo con DATE OF EXAM: 04/26/2020 COMPARISON: None HISTORY: Fall with head injury and neck pain. CT DLP: 1291.5 mGycm Automated exposure control for dose reduction was used. There is mild cerebral cortical atrophy. There is no mass effect nor midline shift. There is no sign of intracranial hemorrhage. The calvarium is intact. The cervical vertebra have normal alignment. Posterior elements are intact. There is anterior spurrin g from C3 to C7. Facet joints are intact. There is disc space narrowing from C3 to C7. There is no ev idence of a fracture. IMPRESSION: Negative CT scan of the brain. Spondylotic changes in the cervical spine. No fracture.
[2020-04-26] MEDS ORDERED: IBUPROFEN 400 MG TAB PO STA (20:45)
[2020-04-26] MEDS ORDERED: ACET/COD 300 MG/30 MG STARTER PACK 6 TAB BTL PO STA (20:45)
--- NOTE | 2020-04-26 20:45 | ED ---
General Adult HPI - General Source: patient, RN notes reviewed, old records reviewed Mode of arrival: ambulatory <Didier Robin - Last Filed: 04/26/20 20:44> <Beulah Gamboa Nae - Last Filed: 04/29/20 21:55> - General Chief complaint: Fall Stated complaint: fall, head/shoulder injury Time Seen by Provider: 04/26/20 19:15 - History of Present Illness Initial comments: 74-year-old female patient ED for evaluation. Patient reports that she was getting into her car today when she went to lean over and she fell over on her side. Patient reports that she landed on her left shoulder and the side of her head. No loss of consciousness. Patient has been having primarily left shoulder pain. Short she is having a little bit of discomfort to the lateral aspect of the trapezius and the neck. No midline discomfort. States she had a mild headache earlier which resolved. Denies any other complaints. Denies any use of blood thinners. Systemic: Pt denies fatigue, fever/chills, rash. Pt denies weakness, night sweats, weight loss. Neuro: Pt denies headache, visual disturbances, syncope or pre-syncope. HEENT: Pt denies ocular discharge or irritation, otalgia, rhinorrhea, pharyngitis or notable lymphadenopathy. Cardiopulmonary: Pt denies chest pain, SOB, heart palpitations, dyspnea on exertion. Abdominal/GI: Pt denies abdominal pain, n/v/d. : Pt denies dysuria, burning w/ urination, frequency/urgency. Denies new onset urinary or bowel incontinence. MSK: Pt denies myalgia, loss of strength or function in extremities. Neuro: Pt denies new onset weakness, paresthesias. (Didier Robin) - Related Data Home Medications Medication Instructions Recorded Confirmed ALPRAZolam [Xanax] 0.5 mg PO DAILY PRN 06/23/17 08/09/19 Budesonide/Formoterol Fumarate 160 inhalation IN DAILY 06/23/17 08/09/19 [Symbicort 160-4.5 Mcg Inhaler] Calcium Carbonate [Calcium] 1,200 mg PO DAILY 06/23/17 08/09/19 Levothyroxine Sodium [Synthroid] 50 mcg PO DAILY 06/23/17 08/09/19 Losartan [Cozaar] 50 mg PO DAILY 06/23/17 08/09/19 Montelukast [Singulair] 10 mg PO HS 06/23/17 08/09/19 C,E,Zinc,Copper 11/Bzxmv3t/Lut 1 each PO DAILY 08/09/19 08/09/19 [Ocuvite Adult 50 Plus Softgel] Cholecalciferol [Vitamin D3 (25 1,000 unit PO DAILY 08/09/19 08/09/19 Mcg = 1000 Iu)] Gemfibrozil(Unknown Dose) 1 tab PO BID 08/09/19 08/09/19 Sertraline HCl [Zoloft] 100 mg PO DAILY 08/09/19 08/09/19 Previous Rx's Medication Instructions Recorded Aspirin 325 mg PO BID #60 tab 08/16/19 HYDROcodone/APAP 7.5-325MG [[place] 1 - 2 each PO Q6HR PRN #42 tab 08/16/19 7.5-325] Allergies Allergy/AdvReac Type Severity Reaction Status Date / Time Nukitps-Obu-Zhc Reductase AdvReac MUSCLE Verified 04/26/20 20:50 Inhibitor RIGIGITY/WEAKNESS Review of Systems ROS Other: All systems not noted in ROS Statement are negative. <Didier Robin - Last Filed: 04/26/20 20:44> ROS Other: All systems not noted in ROS Statement are negative. <Beulah Gamboa - Last Filed: 04/29/20 21:55> ROS Statement: Those systems with pertinent positive or pertinent negative responses have been documented in the HPI. Past Medical History Past Medical History: Atrial Fibrillation, Asthma, Hyperlipidemia, Hypertension History of Any Multi-Drug Resistant Organisms: None Reported Past Surgical History: Breast Surgery, Cardiac Ablation, Hysterectomy, Joint Replacement, Orthopedic Surgery Additional Past Surgical History / Comment(s): left modified mastectomy, arthroscopic left knee, splenectomy, tlk Past Anesthesia/Blood Transfusion Reactions: No Reported Reaction Past Psychological History: No Psychological Hx Reported Smoking Status: Never smoker Past Alcohol Use History: None Reported Past Drug Use History: None Reported <Didier Robin - Last Filed: 04/26/20 20:44> General Exam <Didier Robin - Last Filed: 04/26/20 20:44> - General Exam Comments Initial Comments: Constitutional: NAD, AOX3, Pt has pleasant affect. HEENT: NC/AT, trachea midline, neck supple, no lymphadenopathy. External ears appear normal, without discharge. Mucous membranes moist. Eyes PERRLA, EOM intact. There is no scleral icterus. No pallor noted. Cardiopulmonary: RRR, no murmurs, rubs or gallops, no JVD noted. Lungs CTAB in anterior and posterior de la cruz. No peripheral edema. Abdominal exam: Abdomen soft and non-distended. Abdomen non-tender to palpation in all 4 quadrants. Neuro: CN II-XII intact. No nuchal rigidity. No raccon eyes, no fisher sign, no hemotympanum. No midline cervical spinal tenderness. Mild left paracervical tenderness. MSK: No tenderness to left anterior shoulder region. No skin changes. Passive range of motion is intact. Active range of motion of left upper extremity is limited secondary to discomfort. Distal pulses are intact and equal. Sensation is intact. (Didier Robin) Course Vital Signs 04/26/20 04/26/20 19:06 20:17 Temperature 98.4 F Pulse Rate 73 80 Respiratory 16 12 Rate Blood Pressure 190/85 126/88 O2 Sat by Pulse 97 96 Oximetry Medical Decision Making <Didier Robin - Last Filed: 04/26/20 20:44> <Beulah Gamboa - Last Filed: 04/29/20 21:55> - Medical Decision Making 74-year-old female patient ED for evaluation left shoulder pain for fall. The child or she did hit her head. Patient will symptoms are stable, afebrile. Physical exam slight intact neurologic exam. Mild tenderness anterior shoulder. Plain films are negative for acute process. CT brain C-spine negative for acute process. Patient will discharge the patient primary care follow-up as well as orthopedic. We'll turn the ER with any worsening symptoms. Case discussed with Dr. Gamboa. (Didier Robin) I was available for consultation in the emergency department. The history and physical exam were done by the midlevel provider. I was consulted for this patients care. I reviewed the case with the midlevel provider and based on their presentation of the patient, I agree with the assessment, medical decision making and plan of care as documented. Chart was dictated using Mini[employer] dictation software. Attempts were made to correct any dictation errors however some typographical errors may persist. Patient was seen during a national state of emergency due to the Covid-19 pandemic. (Beulah Gamboa) Disposition Is patient prescribed a controlled substance at d/c from ED?: No <Didier Robin - Last Filed: 04/26/20 20:44> <Beulah Gamboa - Last Filed: 04/29/20 21:55> Clinical Impression: Fall, Shoulder sprain Disposition: HOME SELF-CARE Condition: Stable Instructions (If sedation given, give patient instructions): Shoulder Sprain (ED), Fall Prevention (ED) Additional Instructions: Follow up with PCP tomorrow. Follow up with orthopedic consult in 1-2 days. Return to ED if condition worsens in anyway. Referrals: Isaac Mason DO [Primary Care Provider] - 1-2 days Luis Antonio Hernandez DO [Medical Doctor] - 1-2 days
== END 2020-04-26 20:58 | disposition home or self-care (01) ==
LOC: EC 18:59
DX: S43.402A Unspecified sprain of left shoulder joint, initial encounter (principal); J45.909 Unspecified asthma, uncomplicated; I10 Essential (primary) hypertension; E78.5 Hyperlipidemia, unspecified; Z79.51 Long term (current) use of inhaled steroids; Z79.890 Hormone replacement therapy; Z79.899 Other long term (current) drug therapy; Z96.60 Presence of unspecified orthopedic joint implant; Z88.8 Allergy status to other drugs, medicaments and biological substances; W19.XXXA Unspecified fall, initial encounter; Y93.89 Activity, other specified; Y92.219 Unspecified school as the place of occurrence of the external cause
CPT/HCPCS: 70450; 72125; 99284

== ENCOUNTER → 2020-05-18 | Outpatient (CLI) | payer MEDICARE, BC ==
--- NOTE | 2020-05-18 11:24 | MM ---
Reason for exam: additional evaluation requested from prior study. Last mammogram was performed 1 year and 7 months ago. History: Patient is postmenopausal and has history of breast cancer at age 33. Family history of breast cancer in maternal aunt, breast cancer in maternal cousin at age 55, and premenopausal breast cancer in mother at age 45. Benign excisional biopsy of the right breast, December 2008. Cancelled Right Mammotome of the right breast, December 13, 2008. Mastectomy of the left breast, 1978. Took hormonal contraceptives for 2 years beginning at age 21. Took progesterone for 4 years beginning at age 55. Physical Findings: Nurse did not find any significant physical abnormalities on exam. MG 3D Diag Mammo W/Cad RT CC and MLO view(s) were taken of the right breast. Prior study comparison: October 06, 2018, right breast MG 3d diag mammo w/cad RT. March 19, 2018, right breast MG 3d diag mammo w/cad RT. There are scattered fibroglandular densities. No significant new findings when compared with previous films. These results were verbally communicated with the patient and result sheet given to the patient on 05/18/20. ASSESSMENT: Negative, BI-RAD 1 RECOMMENDATION: Follow-up diagnostic mammogram of the right breast in 1 year.
== END | disposition home or self-care (01) ==
LOC: RADMAMWWP 10:13
PROVIDERS: ATTEND Internal Medicine Critical Care Medicine
DX: Z08 Encounter for follow-up examination after completed treatment for malignant neoplasm (principal); Z85.3 Personal history of malignant neoplasm of breast
CPT/HCPCS: 77065; G0279; 77061

== ENCOUNTER → 2020-12-14 | Outpatient (CLI) | payer MEDICARE, BC ==
[2020-12-14 15:14] LABS: Basophils # (A) 0.04 X 10*3/uL (0.00-0.10); Basophils % (A) 0.8 %; Eosinophils # (A) 0.12 X 10*3/uL (0.04-0.35); Eosinophils % (A) 2.5 %; HCT 40.3 % (37.2-46.3); HGB 12.8 g/dL (12.0-15.0); Lymphocytes # (A) 1.43 X 10*3/uL (0.90-5.00); Lymphocytes % (A) 29.4 %; MCH 30.3 pg (27.0-32.0); MCHC 31.8 g/dL (32.0-37.0); MCV 95.5 fL (80.0-97.0); Monocytes # (A) 0.48 X 10*3/uL (0.20-1.00); Monocytes % (A) 9.9 %; Neutrophils # (A) 2.77 X 10*3/uL (1.80-7.70); Platelet Count 384 X 10*3/uL (140-440); RBC 4.22 X 10*6/uL (4.10-5.20); RDW 13.2 % (11.5-14.5); WBC 4.86 X 10*3/uL (4.50-10.00)
[2020-12-14 17:34] LABS: Albumin 4.6 g/dL (3.80-4.90); Albumin/Globulin Ratio 1.64 (1.60-3.17); Anion Gap 8.5 mmol/L (4.00-12.00); BUN/Creat Ratio 21.11 Ratio (12.00-20.00); Bilirubin, Conjugated 0.2 mg/dL (0.20-0.40); Bilirubin,Unconjugated 0.4 mg/dL; Calcium 9.8 mg/dL (8.7-10.3); Carbon Dioxide 27.5 mmol/L (21.6-31.8); Chol/HDL Ratio 4.81; Globulin 2.8 g/dL (1.6-3.3); Potassium 4.7 mmol/L (3.5-5.5); Total Bilirubin 0.6 mg/dL (0.3-1.2); Total Protein 7.4 g/dL (6.2-8.2)
[2020-12-14 17:46] LABS: T4, Free (Free Thyroxine) 0.9 ng/dL (0.80-1.80)
[2020-12-14 18:09] LABS: Hemoglobin A1C 5.9 % (4.0-6.0)
== END | disposition home or self-care (01) ==
LOC: LABWHC1 08:45
PROVIDERS: ATTEND Internal Medicine Critical Care Medicine
DX: Z00.00 Encounter for general adult medical examination without abnormal findings (principal); E03.9 Hypothyroidism, unspecified; E78.00 Pure hypercholesterolemia, unspecified; I10 Essential (primary) hypertension; J45.909 Unspecified asthma, uncomplicated; F41.9 Anxiety disorder, unspecified; Z85.3 Personal history of malignant neoplasm of breast
CPT/HCPCS: 36415; 80053; 80061; 82248; 82306; 83036; 84439; 84443; 85025

== ENCOUNTER 2020-12-17 13:22 | Inpatient (IN) | payer MEDICARE, BC ==
[2020-12-17] MEDS ORDERED: SODIUM CHLORIDE 0.9% 1,000 ML IV STA (14:02)
[2020-12-17] MEDS ORDERED: ONDANSETRON 4 MG/2 ML VIAL IVP STA (14:02)
--- NOTE | 2020-12-17 14:12 | ED ---
Nausea/Vomiting/Diarrhea HPI - General Chief complaint: Nausea/Vomiting/Diarrhea Stated complaint: Vomiting Blood Time Seen by Provider: 12/17/20 13:45 Source: patient, EMS, RN notes reviewed Mode of arrival: EMS Limitations: no limitations - History of Present Illness Initial comments: This is a 75-year-old female with a history of C-sections splenectomy left mastectomy who presents with complaints of nausea vomiting also states she's had black colored stool today. No vomiting blood per her family she looks pale. He just feels nauseated and just doesn't feel good. No fevers chills. MD complaint: nausea, vomiting, abdominal pain, other - Related Data Home Medications Medication Instructions Recorded Confirmed ALPRAZolam [Xanax] 0.5 mg PO DAILY PRN 06/23/17 08/09/19 Budesonide/Formoterol Fumarate 160 inhalation IN DAILY 06/23/17 08/09/19 [Symbicort 160-4.5 Mcg Inhaler] Calcium Carbonate [Calcium] 1,200 mg PO DAILY 06/23/17 08/09/19 Levothyroxine Sodium [Synthroid] 50 mcg PO DAILY 06/23/17 08/09/19 Losartan [Cozaar] 50 mg PO DAILY 06/23/17 08/09/19 Montelukast [Singulair] 10 mg PO HS 06/23/17 08/09/19 C,E,Zinc,Copper 11/Sdmny7o/Lut 1 each PO DAILY 08/09/19 08/09/19 [Ocuvite Adult 50 Plus Softgel] Cholecalciferol [Vitamin D3 (25 1,000 unit PO DAILY 08/09/19 08/09/19 Mcg = 1000 Iu)] Gemfibrozil(Unknown Dose) 1 tab PO BID 08/09/19 08/09/19 Sertraline HCl [Zoloft] 100 mg PO DAILY 08/09/19 08/09/19 Previous Rx's Medication Instructions Recorded Aspirin 325 mg PO BID #60 tab 08/16/19 HYDROcodone/APAP 7.5-325MG [[place] 1 - 2 each PO Q6HR PRN #42 tab 08/16/19 7.5-325] Allergies Allergy/AdvReac Type Severity Reaction Status Date / Time Usvyvlc-Nif-Wyw Reductase AdvReac MUSCLE Verified 12/17/20 13:28 Inhibitor RIGIGITY/WEAKNESS Review of Systems ROS Statement: Those systems with pertinent positive or pertinent negative responses have been documented in the HPI. ROS Other: All systems not noted in ROS Statement are negative. Past Medical History Past Medical History: Atrial Fibrillation, Asthma, Hyperlipidemia, Hypertension History of Any Multi-Drug Resistant Organisms: None Reported Past Surgical History: Breast Surgery, Cardiac Ablation, Hysterectomy, Joint Replacement, Orthopedic Surgery Additional Past Surgical History / Comment(s): left modified mastectomy, arthro scopic left knee, splenectomy, tlk Past Anesthesia/Blood Transfusion Reactions: No Reported Reaction Past Psychological History: No Psychological Hx Reported Smoking Status: Never smoker Past Alcohol Use History: None Reported Past Drug Use History: None Reported General Exam - General Exam Comments Initial Comments: This is a well-developed well-nourished awake alert oriented 3 female who does appear pale Limitations: no limitations General appearance: alert, in no apparent distress Head exam: Present: atraumatic, normocephalic, normal inspection Eye exam: Present: normal appearance, PERRL, EOMI. Absent: scleral icterus, conjunctival injection, periorbital swelling ENT exam: Present: mucous membranes dry Neck exam: Present: normal inspection. Absent: tenderness, meningismus, lymphadenopathy Respiratory exam: Present: normal lung sounds bilaterally. Absent: respiratory distress, wheezes, rales, rhonchi, stridor Cardiovascular Exam: Present: regular rate, normal rhythm, normal heart sounds. Absent: systolic murmur, diastolic murmur, rubs, gallop, clicks GI/Abdominal exam: Present: soft, tenderness (No guarding rebound masses or bruits), normal bowel sounds. Absent: distended, guarding, rebound, rigid Rectal exam: Present: heme (+) stool, black stool Extremities exam: Present: normal inspection, full ROM, normal capillary refill. Absent: tenderness, pedal edema, joint swelling, calf tenderness Back exam: Present: normal inspection Neurological exam: Present: alert, oriented X3, CN II-XII intact Psychiatric exam: Present: normal affect, normal mood Skin exam: Present: warm, dry, intact, pallor. Absent: normal color, rash Course Vital Signs 12/17/20 13:28 Temperature 97.8 F Pulse Rate 91 Respiratory 18 Rate Blood Pressure 94/59 O2 Sat by Pulse 98 Oximetry Medical Decision Making - Medical Decision Making I did discuss findings with patient and her as well as with Dr. Perez patient be admitted with consult Dr. Mason. - Lab Data Result diagrams: 12/17/20 14:36 12/17/20 14:36 Lab Results 12/17/20 12/17/20 12/17/20 Range/Units 14:36 14:36 14:36 WBC 12.7 H (3.8-10.6) k/uL RBC 3.22 L (3.80-5.40) m/uL Hgb 9.6 L (11.4-16.0) gm/dL Hct 30.4 L (34.0-46.0) % MCV 94.5 (80.0-100.0) fL MCH 29.8 (25.0-35.0) pg MCHC 31.6 (31.0-37.0) g/dL RDW 13.4 (11.5-15.5) % Plt Count 315 (150-450) k/uL MPV 7.9 Neutrophils % 89 % Lymphocytes % 7 % Monocytes % 3 % Eosinophils % 0 % Basophils % 0 % Neutrophils # 11.3 H (1.3-7.7) k/uL Lymphocytes # 0.9 L (1.0-4.8) k/uL Monocytes # 0.4 (0-1.0) k/uL Eosinophils # 0.0 (0-0.7) k/uL Basophils # 0.0 (0-0.2) k/uL Sodium 138 (137-145) mmol/L Potassium 4.9 (3.5-5.1) mmol/L Chloride 109 H (98-107) mmol/L Carbon Dioxide 23 (22-30) mmol/L Anion Gap 6 mmol/L BUN 55 H (7-17) mg/dL Creatinine 0.77 (0.52-1.04) mg/dL Est GFR (CKD-EPI)AfAm 88 (>60 ml/min/1.73 sqM) Est GFR (CKD-EPI)NonAf 76 (>60 ml/min/1.73 sqM) Glucose 120 H (74-99) mg/dL Plasma Lactic Acid Varun (0.7-2.0) mmol/L Calcium 8.7 (8.4-10.2) mg/dL Magnesium 2.2 (1.6-2.3) mg/dL Total Bilirubin 0.4 (0.2-1.3) mg/dL AST 24 (14-36) U/L ALT 25 (4-34) U/L Alkaline Phosphatase 63 (38-126) U/L Creatine Kinase 116 (30-135) U/L Troponin I (0.000-0.034) ng/mL Total Protein 6.2 L (6.3-8.2) g/dL Albumin 3.5 (3.5-5.0) g/dL Lipase 139 (23-300) U/L Stool Occult Blood Positive H (Negative) 12/17/20 12/17/20 Range/Units 14:36 14:36 WBC (3.8-10.6) k/uL RBC (3.80-5.40) m/uL Hgb (11.4-16.0) gm/dL Hct (34.0-46.0) % MCV (80.0-100.0) fL MCH (25.0-35.0) pg MCHC (31.0-37.0) g/dL RDW (11.5-15.5) % Plt Count (150-450) k/uL MPV Neutrophils % % Lymphocytes % % Monocytes % % Eosinophils % % Basophils % % Neutrophils # (1.3-7.7) k/uL Lymphocytes # (1.0-4.8) k/uL Monocytes # (0-1.0) k/uL Eosinophils # (0-0.7) k/uL Basophils # (0-0.2) k/uL Sodium (137-145) mmol/L Potassium (3.5-5.1) mmol/L Chloride (98-107) mmol/L Carbon Dioxide (22-30) mmol/L Anion Gap mmol/L BUN (7-17) mg/dL Creatinine (0.52-1.04) mg/dL Est GFR (CKD-EPI)AfAm (>60 ml/min/1.73 sqM) Est GFR (CKD-EPI)NonAf (>60 ml/min/1.73 sqM) Glucose (74-99) mg/dL Plasma Lactic Acid Varun 1.2 (0.7-2.0) mmol/L Calcium (8.4-10.2) mg/dL Magnesium (1.6-2.3) mg/dL Total Bilirubin (0.2-1.3) mg/dL AST (14-36) U/L ALT (4-34) U/L Alkaline Phosphatase (38-126) U/L Creatine Kinase (30-135) U/L Troponin I 0.013 (0.000-0.034) ng/mL Total Protein (6.3-8.2) g/dL Albumin (3.5-5.0) g/dL Lipase (23-300) U/L Stool Occult Blood (Negative) - Radiology Data Radiology results: report reviewed (Imaging reviewed no acute findings.), image reviewed Disposition Clinical Impression: GI bleed, Anemia, Abdominal pain Disposition: ADMITTED IP TO THIS [facility] Condition: Fair Referrals: Isaac Mason DO [Primary Care Provider] - 1-2 days
--- NOTE | 2020-12-17 14:48 | XR ---
KUB HISTORY: Pain, nausea vomiting and diarrhea Frontal KUB submitted on 2 images, comparison to chest x-ray 07/19/2010 Lung bases are clear. Surgical clips are present in the left upper quadrant. There is a round smooth calcification in the right upper quadrant measuring 8 mm. Degenerative disc changes are present in th e visualized spine. Bone mineralization is maintained. Probable vascular calcifications present withi n the pelvis. IMPRESSION: Indeterminate calcification right upper quadrant. Postop changes. No acute abnormalities evident.
[2020-12-17 15:02] LABS: Basophils % (A) 0 %; Eosinophils % (A) 0 %; HCT 30.4 % (34.0-46.0); HGB 9.6 gm/dL (11.4-16.0); Lymphocytes # (A) 0.9 k/uL (1.0-4.8); Lymphocytes % (A) 7 %; MCH 29.8 pg (25.0-35.0); MCHC 31.6 g/dL (31.0-37.0); MCV 94.5 fL (80.0-100.0); Mean Platelet Volume 7.9; Monocytes # (A) 0.4 k/uL (0-1.0); Monocytes % (A) 3 %; Neutrophils # (A) 11.3 k/uL (1.3-7.7); Neutrophils % (A) 89 %; Platelet Count 315 k/uL (150-450); RBC 3.22 m/uL (3.80-5.40); RDW 13.4 % (11.5-15.5); WBC 12.7 k/uL (3.8-10.6)
[2020-12-17 15:22] LABS: Albumin 3.5 g/dL (3.5-5.0); Calcium 8.7 mg/dL (8.4-10.2); Magnesium 2.2 mg/dL (1.6-2.3); Potassium 4.9 mmol/L (3.5-5.1); Total Bilirubin 0.4 mg/dL (0.2-1.3); Total Protein 6.2 g/dL (6.3-8.2)
--- NOTE | 2020-12-17 16:32 | P.CNPUL ---
History of Present Illness Consult date: 12/17/20 Requesting physician: Isaac Good Reason for consult: other Chief complaint: Black tarry stools, acute GI bleeding, lightheadedness and dizziness History of present illness: 75-year-old white female patient with past medical history of chronic bronchial asthma, hypertension, hyperlipidemia history of left breast cancer, hypothyroidism, anxiety, benign paroxysmal positional vertigo, never smoker. Patient's surgical history is significant for splenectomy, left mastectomy for history of left breast cancer, hysterectomy, she also had left arthroscopic knee surgery. On 12/17/2020 patient presented to the emergency department for evaluation of black tarry stools that started this morning. Patient also had dark coffee ground emesis. States she had near syncopal episodes 3 times when she was going to the bathroom. She felt very lightheaded and weak. No chest pain, no shortness of breath, no abdominal pain, she did feel nauseous. She states last [place], and in the knee she had one beer and one rum and Coke otherwise she denies any heavy alcohol use. Patient is on full dose aspirin 325 mg, no other anticoagulation. There is questionable history of atrial fibrillation. Her hemoglobin on arrival to the hospital was 12.8, white count was 4.86, platelet count 324, electrolytes and renal profile were unremarkable, LFTs were within normal limits, stool for occult blood was found to be positive. Patient was given a liter bolus wide open in the emergency department which she states made her feel a lot better as she was extremely dizzy. Patient's blood pressure in the emergency department during our evaluation is 90s over 40s, room air pulse ox 98%, heart rate is 70-90 BPM, she is afebrile. She is awake and alert, appears to be slightly pale, but no acute distress. She is nothing by mouth, she is awaiting GI service evaluation. Follow-up hemoglobin came back at 9.6. No further black stools or vomiting in the emergency department Review of Systems All systems: negative Constitutional: Reports weakness, Denies chills, Denies fever Eyes: denies blurred vision, denies pain Ears, nose, mouth and throat: Denies headache, Denies sore throat Cardiovascular: Denies chest pain, Denies shortness of breath Respiratory: Denies cough Gastrointestinal: Reports change in bowel habits, Reports hematochezia, Reports melena, Reports nausea, Denies abdominal pain, Denies diarrhea, Denies vomiting Genitourinary: Denies dysuria, Denies hematuria Musculoskeletal: Denies myalgias Integumentary: Denies pruritus, Denies rash Neurological: Reports syncope, Reports weakness, Denies numbness Psychiatric: Denies anxiety, Denies depression Endocrine: Denies fatigue, Denies weight change Past Medical History Past Medical History: Atrial Fibrillation, Asthma, Hyperlipidemia, Hypertension History of Any Multi-Drug Resistant Organisms: None Reported Past Surgical History: Breast Surgery, Cardiac Ablation, Hysterectomy, Joint Replacement, Orthopedic Surgery Additional Past Surgical History / Comment(s): left modified mastectomy, arthroscopic left knee, splenectomy, tlk Past Anesthesia/Blood Transfusion Reactions: No Reported Reaction Past Psychological History: No Psychological Hx Reported Smoking Status: Never smoker Past Alcohol Use History: None Reported Past Drug Use History: None Reported Medications and Allergies Home Medications Medication Instructions Recorded Confirmed Type ALPRAZolam [Xanax] 0.5 mg PO DAILY PRN 06/23/17 08/09/19 History Budesonide/Formoterol Fumarate 160 inhalation IN DAILY 06/23/17 08/09/19 History [Symbicort 160-4.5 Mcg Inhaler] Calcium Carbonate [Calcium] 1,200 mg PO DAILY 06/23/17 08/09/19 History Levothyroxine Sodium [Synthroid] 50 mcg PO DAILY 06/23/17 08/09/19 History Losartan [Cozaar] 50 mg PO DAILY 06/23/17 08/09/19 History Montelukast [Singulair] 10 mg PO HS 06/23/17 08/09/19 History C,E,Zinc,Copper 11/Eljob4n/Lut 1 each PO DAILY 08/09/19 08/09/19 History [Ocuvite Adult 50 Plus Softgel] Cholecalciferol [Vitamin D3 (25 1,000 unit PO DAILY 08/09/19 08/09/19 History Mcg = 1000 Iu)] Gemfibrozil(Unknown Dose) 1 tab PO BID 08/09/19 08/09/19 History Sertraline HCl [Zoloft] 100 mg PO DAILY 08/09/19 08/09/19 History Aspirin 325 mg PO BID #60 tab 08/16/19 Rx HYDROcodone/APAP 7.5-325MG [[place] 1 - 2 each PO Q6HR PRN #42 tab 08/16/19 Rx 7.5-325] Allergies Allergy/AdvReac Type Severity Reaction Status Date / Time Cnflanl-Ekg-Pad Reductase AdvReac MUSCLE Verified 12/17/20 13:28 Inhibitor RIGIGITY/WEAKNESS Physical Exam Vitals: Vital Signs Temp Pulse Resp BP Pulse Ox 12/17/20 13:28 97.8 F 91 18 94/59 98 Intake and Output 12/17/20 12/17/20 12/17/20 06:59 14:59 22:59 Other: Weight 71.668 kg GENERAL EXAM: Alert, very pleasant, 75-year-old white female, on room air, appears slightly pale, but fairly comfortable in no apparent distress. No acute distress noted HEAD: Normocephalic/atraumatic. EYES: Normal reaction of pupils, equal size. Conjunctiva pink, sclera white. NOSE: Clear with pink turbinates. THROAT: No erythema or exudates. NECK: No masses, no JVD, no thyroid enlargement, no adenopathy. CHEST: No chest wall deformity. Symmetrical expansion. LUNGS: Equal air entry with no crackles, wheeze, rhonchi or dullness. CVS: Regular rate and rhythm, normal S1 and S2, no gallops, no murmurs, no rubs ABDOMEN: Soft, nontender. No hepatosplenomegaly, normal bowel sounds, no guarding or rigidity. EXTREMITIES: No clubbing, no edema, no cyanosis, 2+ pulses and upper and lower extremities. MUSCULOSKELETAL: Muscle strength and tone normal. SPINE: No scoliosis or deformity SKIN: No rashes CENTRAL NERVOUS SYSTEM: Alert and oriented -3. No focal deficits, tone is normal in all 4 extremities. PSYCHIATRIC: Alert and oriented -3. Appropriate affect. Intact judgment and insight. Results - Laboratory Findings CBC and BMP: 12/17/20 14:36 12/17/20 14:36 Abnormal lab findings: Abnormal Labs 12/17/20 12/17/20 12/17/20 14:36 14:36 14:36 WBC 12.7 H RBC 3.22 L Hgb 9.6 L Hct 30.4 L Neutrophils # 11.3 H Lymphocytes # 0.9 L Chloride 109 H BUN 55 H Glucose 120 H Total Protein 6.2 L Stool Occult Blood Positive H - Diagnostic Findings Additional studies: KUB x-ray reviewed Assessment and Plan Plan: Assessment: #1. Acute GI blood loss anemia, patient presented with symptoms of black tarry stools, and dark colored vomiting that started this morning. Occult stool was positive #2. Syncopal episodes, weakness, lightheadedness related to the above improved with IV fluid bolus #3. Hypertension #4. 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 History of atrial fibrillation with cardiac ablation #7. Anxiety #8. History of chronic bronchial asthma, unspecified stable at this time #9. Hypercholesterolemia #10. History of left breast cancer with history of left mastectomy #11. History of splenectomy #12. History of left knee arthroplasty #13. History of hysterectomy #14. Never smoker Plan: Agree with IV fluids Continue with serial H&H's Awaiting GI evaluation Protonix 40 mg twice daily Hold aspirin Keep nothing by mouth SCDs Follow-up blood work in the morning Patient is stable to be admitted to medical surgical floor We'll continue to follow I performed a history & physical examination of the patient and discussed their management with my nurse practitioner, Antonieta Barros. I reviewed the nurse practitioner's note and agree with the documented findings and plan of care. Lung sounds are positive for clear breath sounds. The findings and the impression was discussed with the patient. I attest to the documentation by the nurse practitioner. Time with Patient: Greater than 30
[2020-12-17] MEDS ORDERED: NALOXONE 0.4 MG/ML 1 ML VIAL IV PRN (16:57)
[2020-12-17] MEDS ORDERED: ONDANSETRON 4 MG/2 ML VIAL IVP PRN (17:02)
[2020-12-17 18:41] LABS: Basophils % (A) 0 %; Eosinophils # (A) 0.1 k/uL (0-0.7); Eosinophils % (A) 1 %; HCT 27.2 % (34.0-46.0); Lymphocytes # (A) 1.1 k/uL (1.0-4.8); Lymphocytes % (A) 11 %; MCH 31.3 pg (25.0-35.0); MCHC 33.2 g/dL (31.0-37.0); MCV 94.2 fL (80.0-100.0); Mean Platelet Volume 8.8; Monocytes # (A) 0.2 k/uL (0-1.0); Monocytes % (A) 2 %; Neutrophils % (A) 86 %; Platelet Count 279 k/uL (150-450); RBC 2.89 m/uL (3.80-5.40); RDW 13.1 % (11.5-15.5); WBC 10.5 k/uL (3.8-10.6)
[2020-12-17] MEDS: SODIUM CHLORIDE 0.9% 1,000 ML IV SCH (20:06)
[2020-12-17] MEDS: PANTOPRAZOLE 40 MG/10 ML VIAL IVP SCH (21:17)
[2020-12-17 22:32] LABS: HCT 25.1 % (34.0-46.0); HGB 8.5 gm/dL (11.4-16.0); MCH 31.6 pg (25.0-35.0); MCV 92.8 fL (80.0-100.0); Mean Platelet Volume 8.6; Platelet Count 270 k/uL (150-450); RBC 2.71 m/uL (3.80-5.40); RDW 13.1 % (11.5-15.5)
[2020-12-18] MEDS: SODIUM CHLORIDE 0.9% 1,000 ML IV SCH ×3 (06:07→23:15)
[2020-12-18 06:28] LABS: HCT 23.3 % (34.0-46.0); HGB 7.7 gm/dL (11.4-16.0); MCH 30.8 pg (25.0-35.0); MCV 93.4 fL (80.0-100.0); Mean Platelet Volume 8.8; Platelet Count 253 k/uL (150-450); RBC 2.49 m/uL (3.80-5.40); RDW 13.1 % (11.5-15.5); WBC 8.4 k/uL (3.8-10.6)
[2020-12-18] MEDS: PANTOPRAZOLE 40 MG/10 ML VIAL IVP SCH ×2 (09:46→19:50)
--- NOTE | 2020-12-18 12:14 | P.CONS ---
History of Present Illness - Reason for Consult Consult date: 12/18/20 GI bleed Requesting physician: Antonieta Barros - Chief Complaint Black stools, syncope and collapse - History of Present Illness This is a pleasant 75-year-old white female who presented to the emergency department by EMS for signs of black stools yesterday and passing out 3 times. She has a past medical history of chronic bronchial asthma, hypertension, hyperlipidemia, history of left breast cancer status post mastectomy, hypothyroidism, anxiety, benign proximal positional vertigo. She has a surgical history significant for splenectomy and left mastectomy as well as hysterectomy. She states she started having black stools yesterday morning she became nauseated and started vomiting and had coffee-ground emesis followed by right red blood. She was feeling very light headed and weak, she denied any chest pain or shortness of breath. She is currently denying any abdominal pain, but was having some epigastric pain she's had no further nausea vomiting or black stools since yesterday when she was admitted. She's been afebrile. She denies any previous history of peptic ulcer disease or GI bleed. She denies any use of NSAIDs regularly, denies any heavy alcohol use, states she only drinks on occasion. She's had no previous EGD, states her last colonoscopy was with Dr. Jaramillo 10-15 years ago does not believe there was any significant findings. She denies any anticoagulation or aspirin use, however there is a questionable history of atrial fibrillation per chart. She does have a history of acid reflux and has been taking Pepcid only as needed. On 12/14/2020 her hemoglobin was 12.8, on admission hemoglobin 9.6. Today's labs WBC 8.4, hemoglobin 7.7, hematocrit 23.3, platelet 253,000, total bilirubin 0.4, alkaline phosphatase 63, AST 24, ALT 25. Past Medical History Past Medical History: Atrial Fibrillation, Asthma, Cancer, Hyperlipidemia, Hypertension, Thyroid Disorder Additional Past Medical History / Comment(s): Left Breast CA (45 yr ago) History of Any Multi-Drug Resistant Organisms: None Reported Past Surgical History: Breast Surgery, Cardiac Ablation, Hysterectomy, Joint Replacement, Orthopedic Surgery Additional Past Surgical History / Comment(s): left modified mastectomy, arthroscopic left knee, splenectomy, tlk Past Anesthesia/Blood Transfusion Reactions: No Reported Reaction Past Psychological History: No Psychological Hx Reported Smoking Status: Never smoker Past Alcohol Use History: None Reported Past Drug Use History: None Reported Medications and Allergies Home Medications Medication Instructions Recorded Confirmed Type ALPRAZolam [Xanax] 0.5 mg PO DAILY PRN 06/23/17 12/17/20 History Budesonide/Formoterol Fumarate 1 puff INHALATION RT-DAILY 06/23/17 12/17/20 History [Symbicort 160-4.5 Mcg Inhaler] Calcium Carbonate [Calcium] 600 mg PO DAILY 06/23/17 12/17/20 History Levothyroxine Sodium [Synthroid] 50 mcg PO DAILY 06/23/17 12/17/20 History Losartan [Cozaar] 50 mg PO DAILY 06/23/17 12/17/20 History Montelukast [Singulair] 10 mg PO HS 06/23/17 12/17/20 History C,E,Zinc,Copper 11/Ubivp0l/Lut 1 each PO DAILY 08/09/19 12/17/20 History [Ocuvite Adult 50 Plus Softgel] Sertraline HCl [Zoloft] 100 mg PO DAILY 08/09/19 12/17/20 History Donepezil HCl [Aricept] 5 mg PO DAILY 12/17/20 12/17/20 History gemfibroziL [Lopid] 600 mg PO BID 12/17/20 12/17/20 History Allergies Allergy/AdvReac Type Severity Reaction Status Date / Time Blytvuu-Wgl-Wrd Reductase AdvReac MUSCLE Verified 12/17/20 18:35 Inhibitor RIGIGITY/WEAKNESS Physical Exam Vitals: Vital Signs Temp Pulse Pulse Resp BP BP Pulse Ox 12/18/20 04:00 89 18 144/70 95 12/18/20 01:46 87 18 12/18/20 00:00 87 18 113/67 95 12/17/20 20:50 98.4 F 78 18 129/73 97 12/17/20 19:18 90 18 124/73 97 12/17/20 13:28 97.8 F 91 18 94/59 98 Intake and Output 12/17/20 12/18/20 12/18/20 22:59 06:59 14:59 Intake Total 500 Balance 500 Intake: Intake, IV Titration 500 Amount Sodium Chloride 0.9% 1, 500 000 ml @ 100 mls/hr IV . Q10H DERICK Rx#:[id number] Other: # Voids 1 Weight 71.668 kg 72.6 kg General appearance: The patient is alert, oriented, appears in no acute distres s. HET: Head is normocephalic and atraumatic. Conjunctiva pink. Sclera anicteric. Neck: Supple without lymphadenopathy. Trachea midline. Heart: S1 S2. Regular rate and rhythm. Lungs: Clear to auscultation. Abdomen: Soft, epigastric tenderness, nondistended with bowel sounds. No guarding or rigidity. Extremities: Normal skin color and turgor. No pedal edema. Neurological: No focal deficits. Alert and oriented x3. Results CBC & Chem 7: 12/18/20 06:15 12/17/20 14:36 Labs: Abnormal Lab Results - Last 24 Hours (Table) 12/17/20 12/17/20 12/17/20 Range/Units 14:36 14:36 14:36 WBC 12.7 H (3.8-10.6) k/uL RBC 3.22 L (3.80-5.40) m/uL Hgb 9.6 L (11.4-16.0) gm/dL Hct 30.4 L (34.0-46.0) % Neutrophils # 11.3 H (1.3-7.7) k/uL Lymphocytes # 0.9 L (1.0-4.8) k/uL Chloride 109 H (98-107) mmol/L BUN 55 H (7-17) mg/dL Glucose 120 H (74-99) mg/dL Total Protein 6.2 L (6.3-8.2) g/dL Stool Occult Blood Positive H (Negative) 12/17/20 12/17/20 12/18/20 Range/Units 18:30 21:56 06:15 WBC (3.8-10.6) k/uL RBC 2.89 L 2.71 L 2.49 L (3.80-5.40) m/uL Hgb 9.0 L 8.5 L 7.7 L (11.4-16.0) gm/dL Hct 27.2 L 25.1 L 23.3 L (34.0-46.0) % Neutrophils # 9.0 H (1.3-7.7) k/uL Lymphocytes # (1.0-4.8) k/uL Chloride (98-107) mmol/L BUN (7-17) mg/dL Glucose (74-99) mg/dL Total Protein (6.3-8.2) g/dL Stool Occult Blood (Negative) Abdominal x-ray: report reviewed (Indeterminate calcification right upper quadrant. Postop changes. No acute abnormalities evident.) Assessment and Plan (1) Normochromic normocytic anemia Narrative/Plan: 75-year-old female who presented to the emergency department yesterday by EMS for complaints of black stool, followed by abdominal pain nausea and vomiting of coffee-ground emesis and bright red emesis. She also states that she had 3 syncopal episodes and passed out. She has no previous history of GI bleed, no previous history of peptic ulcer disease, denies any previous EGD. Last colonoscopy 10-15 years ago which she believes was normal. She denies any anticoagulation, NSAID use, or alcohol abuse. Labs are consistent with a normochromic normocytic anemia. She has stated that she's had some acid reflux which has been worse lately, was started on Pepcid 20 mg twice daily. Possible etiologies include peptic ulcer disease, gastritis, esophagitis, AVMs, or other possible etiologies. Will proceed with EGD today. Current Visit: Yes Status: Acute Code(s): D64.9 - ANEMIA, UNSPECIFIED SNOMED Code(s): 49923337 (2) GI bleed Current Visit: Yes Status: Acute Code(s): K92.2 - GASTROINTESTINAL HEMORRHAGE, UNSPECIFIED SNOMED Code(s): 85486487 Plan: 1. Keep nothing by mouth 2. Daily CBC, transfuse for hemoglobin less than 7 3. Avoid NSAIDs 4. Patient scheduled for EGD, procedure discussed with patient including risks and benefits. Patient is willing to proceed. 5. Protonix 40 mg twice a day Thank you for this consultation, we will continue to follow Dr. Louis I agree with the dictator's note, documented as a scribe by Shelbi Liz.
[2020-12-18] MEDS ORDERED: PROPOFOL 10 MG/ML 20 ML VIAL IV ONE (12:45)
[2020-12-18] MEDS ORDERED: LIDOCAINE 1% INJ 10MG/ML (20 ML MDV) ONE (12:45)
[2020-12-18] MEDS ORDERED: IV FLUID CONTINUATION 100 ML IV ONE (12:45)
--- NOTE | 2020-12-18 12:55 | P.PN ---
Subjective Progress Note Date: 12/18/20 Principal diagnosis: Acute GI bleeding, black tarry stools, coffee-ground emesis, syncopal episodes 75-year-old white female patient with past medical history of chronic bronchial asthma, hypertension, hyperlipidemia history of left breast cancer, hypothyroidism, anxiety, benign paroxysmal positional vertigo, never smoker. Patient's surgical history is significant for splenectomy, left mastectomy for history of left breast cancer, hysterectomy, she also had left arthroscopic knee surgery. On 12/17/2020 patient presented to the emergency department for evaluation of black tarry stools that started this morning. Patient also had dark coffee ground emesis. States she had near syncopal episodes 3 times when she was going to the bathroom. She felt very lightheaded and weak. No chest pain, no shortness of breath, no abdominal pain, she did feel nauseous. She states [place], and in the knee she had one beer and one rum and Coke otherwise she denies any heavy alcohol use. Patient is on full dose aspirin 325 mg, no other anticoagulation. There is questionable history of atrial fibrillation. Her hemoglobin on arrival to the hospital was 12.8, white count was 4.86, platelet count 324, electrolytes and renal profile were unremarkable, LFTs were within normal limits, stool for occult blood was found to be positive. Patient was given a liter bolus wide open in the emergency department which she states made her feel a lot better as she was extremely dizzy. Patient's blood pressure in the emergency department during our evaluation is 90s over 40s, room air pulse ox 98%, heart rate is 70-90 BPM, she is afebrile. She is awake and alert, appears to be slightly pale, but no acute distress. She is nothing by mouth, she is awaiting GI service evaluation. Follow-up hemoglobin came back at 9.6. No further black stools or vomiting in the emergency department On 12/18/2020 patient seen in follow-up on selective care unit, she is awake and alert, she feels less weak and lightheaded, she has had no recurrence of black tarry stools or coffee-ground emesis since her admission, remains on IV fluids with point and was seen at a rate of 100 ML per hour, today's hemoglobin is down to 7.7. Her blood pressure has been stable. She has been nothing by mouth since admission, no abdominal pain, no fever or chills, room air pulse ox is 95%. Remains on Protonix 40 mg twice daily. GI evaluation is pending. Objective - Vital Signs Vital signs: Vital Signs Temp 98.4 F 12/17/20 20:50 Pulse 89 12/18/20 04:00 Resp 18 12/18/20 04:00 BP 144/70 12/18/20 04:00 Pulse Ox 95 12/18/20 04:00 Intake & Output 12/17/20 12/18/20 12/18/20 18:59 06:59 18:59 Intake Total 500 Balance 500 Weight 71.668 kg 72.6 kg Intake: Intake, IV Titration 500 Amount Sodium Chloride 0.9% 1, 500 000 ml @ 100 mls/hr IV . Q10H DERICK Rx#:[id number] Other: # Voids 1 - Exam GENERAL EXAM: Alert, very pleasant, 75-year-old white female, on room air, appears slightly pale, but fairly comfortable in no apparent distress. No acute distress noted HEAD: Normocephalic/atraumatic. EYES: Normal reaction of pupils, equal size. Conjunctiva pink, sclera white. NOSE: Clear with pink turbinates. THROAT: No erythema or exudates. NECK: No masses, no JVD, no thyroid enlargement, no adenopathy. CHEST: No chest wall deformity. Symmetrical expansion. LUNGS: Equal air entry with no crackles, wheeze, rhonchi or dullness. CVS: Regular rate and rhythm, normal S1 and S2, no gallops, no murmurs, no rubs ABDOMEN: Soft, nontender. No hepatosplenomegaly, normal bowel sounds, no guarding or rigidity. EXTREMITIES: No clubbing, no edema, no cyanosis, 2+ pulses and upper and lower extremities. MUSCULOSKELETAL: Muscle strength and tone normal. SPINE: No scoliosis or deformity SKIN: No rashes CENTRAL NERVOUS SYSTEM: Alert and oriented -3. No focal deficits, tone is normal in all 4 extremities. PSYCHIATRIC: Alert and oriented -3. Appropriate affect. Intact judgment and insight. - Labs CBC & Chem 7: 12/18/20 06:15 12/17/20 14:36 Labs: Abnormal Lab Results - Last 24 Hours (Table) 12/17/20 12/17/20 12/17/20 Range/Units 14:36 14:36 14:36 WBC 12.7 H (3.8-10.6) k/uL RBC 3.22 L (3.80-5.40) m/uL Hgb 9.6 L (11.4-16.0) gm/dL Hct 30.4 L (34.0-46.0) % Neutrophils # 11.3 H (1.3-7.7) k/uL Lymphocytes # 0.9 L (1.0-4.8) k/uL Chloride 109 H (98-107) mmol/L BUN 55 H (7-17) mg/dL Glucose 120 H (74-99) mg/dL Total Protein 6.2 L (6.3-8.2) g/dL Stool Occult Blood Positive H (Negative) 12/17/20 12/17/20 12/18/20 Range/Units 18:30 21:56 06:15 WBC (3.8-10.6) k/uL RBC 2.89 L 2.71 L 2.49 L (3.80-5.40) m/uL Hgb 9.0 L 8.5 L 7.7 L (11.4-16.0) gm/dL Hct 27.2 L 25.1 L 23.3 L (34.0-46.0) % Neutrophils # 9.0 H (1.3-7.7) k/uL Lymphocytes # (1.0-4.8) k/uL Chloride (98-107) mmol/L BUN (7-17) mg/dL Glucose (74-99) mg/dL Total Protein (6.3-8.2) g/dL Stool Occult Blood (Negative) Assessment and Plan Plan: Assessment: #1. Acute GI blood loss anemia, patient presented with symptoms of black tarry stools, and dark colored vomiting that started in the morning on 12/17/2020. Occult stool was positive #2. Syncopal episodes, weakness, lightheadedness related to the above improved with IV fluid bolus #3. Hypertension #4. 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 History of atrial fibrillation with cardiac ablation #7. Anxiety #8. History of chronic bronchial asthma, unspecified stable at this time #9. Hypercholesterolemia #10. History of left breast cancer with history of left mastectomy #11. History of splenectomy #12. History of left knee arthroplasty #13. History of hysterectomy #14. Never smoker Plan: Continue with IV Protonix Continue IV fluids Keep nothing by mouth GI service is planning on EGD this afternoon with Dr. Louis We will continue following patient's clinical course I performed a history & physical examination of the patient and discussed their management with my nurse practitioner, Antonieta Barros. I reviewed the nurse practitioner's note and agree with the documented findings and plan of care. Lung sounds are positive for clear breath sounds. The findings and the impression was discussed with the patient. I attest to the documentation by the nurse practitioner. Time with Patient: Less than 30
--- NOTE | 2020-12-18 13:13 | P.PCN ---
Date of Procedure: 12/18/20 Description of Procedure: BRIEF HISTORY: 75-year-old white female who presented to the emergency department by EMS for signs of black stools yesterday and passing out 3 times. She has a past medical history of chronic bronchial asthma, hypertension, hyperlipidemia, history of left breast cancer status post mastectomy, hypothyroidism, anxiety, benign proximal positional vertigo. She has a surgical history significant for splenectomy and left mastectomy as well as hysterectomy. She states she started having black stools yesterday morning she became nauseated and started vomiting and had coffee-ground emesis followed by right red blood. She was feeling very light headed and weak, she denied any chest pain or shortness of breath. She is currently denying any abdominal pain, but was having some epigastric pain she's had no further nausea vomiting or black stools since yesterday when she was admitted. She's been afebrile. She denies any previous history of peptic ulcer disease or GI bleed. She denies any use of NSAIDs regularly, denies any heavy alcohol use, states she only drinks on occasion. She's had no previous EGD, states her last colonoscopy was with Dr. Jaramillo 10-15 years ago does not believe there was any significant findings. She denies any anticoagulation or aspirin use, however there is a questionable history of atrial fibrillation per chart. She does have a history of acid reflux and has been taking Pepcid only as needed. On 12/14/2020 her hemoglobin was 12.8, on admission hemoglobin 9.6 and 7.7 today. PROCEDURE PERFORMED: Esophagogastroduodenoscopy with biopsy. PREOPERATIVE DIAGNOSIS: Anemia of acute blood loss, GI bleed, hematemesis. ESTIMATED BLOOD LOSS: Minimal. IV sedation per anesthesia. PROCEDURE: After informed consent was obtained, the patient was brought into the endoscopy unit. IV sedation was administered by Anesthesia under continuous monitoring. Initially the Olympus GIF-190 video endoscope was inserted into the mouth. Esophagus intubated without any difficulty. It was gradually advanced into the stomach and duodenum and carefully examined. The bulb and the second part of the duodenum appeared normal, with biopsies taken. The scope at this time was withdrawn to the stomach, adequately insufflated with air, and upon careful examination, mucosa of the antrum, body, cardia and the fundus appeared normal, except for 2 prepyloric ulcers one 7 mm in size and cratered and the second 3 mm in size and linear without active bleeding or high risk stigmata for bleeding with biopsies taken. The scope was then withdrawn into the esophagus. The GE junction was located at 37 cm from the incisors. The esophagus appeared normal. There were no erosions or ulcerations seen and the patient tolerated the procedure well. IMPRESSION: 1. 2 nonbleeding prepyloric gastric ulcers without high risk stigmata for blee ding. 2. No active bleeding or old blood noted. 3. Biopsies of the duodenum and gastric ulcers. RECOMMENDATIONS: The findings of this examination were discussed with the patient and her brother and [id number]. Okay for full liquid diet today, advance tomorrow as tolerated. Would pathology from biopsies. Strict NSAID avoidance. Patient should be discharged on twice daily Protonix therapy. Repeat EGD in 8 weeks to check for ulcer healing. Patient in follow-up after discharge for colonoscopy.
[2020-12-18] MEDS ORDERED: ALPRAZolam 0.5 MG TAB PO PRN (13:49)
[2020-12-18 16:53] LABS: Basophils % (A) 0 %; Eosinophils % (A) 1 %; HCT 22.6 % (34.0-46.0); HGB 7.2 gm/dL (11.4-16.0); Lymphocytes # (A) 2.3 k/uL (1.0-4.8); Lymphocytes % (A) 33 %; MCH 30.1 pg (25.0-35.0); MCHC 31.6 g/dL (31.0-37.0); MCV 95.4 fL (80.0-100.0); Mean Platelet Volume 7.8; Monocytes # (A) 0.3 k/uL (0-1.0); Monocytes % (A) 4 %; Neutrophils # (A) 4.3 k/uL (1.3-7.7); Neutrophils % (A) 61 %; Platelet Count 268 k/uL (150-450); RBC 2.37 m/uL (3.80-5.40); RDW 13.7 % (11.5-15.5); WBC 7.1 k/uL (3.8-10.6)
[2020-12-18] MEDS: FENOFIBRATE 160 MG TAB PO SCH (19:50)
[2020-12-18] MEDS: MONTELUKAST 10 MG TAB PO SCH (19:50)
--- NOTE | 2020-12-18 21:19 | P.HPIM ---
History of Present Illness This is a pleasant 75 years old female with multiple medical problems as below. Presents because of one-day history of vomiting bloody discharge, 3 times with no significant abdominal pain associated with black-colored diarrhea about 4-5 times with no fresh blood. Upper GI bleeding is suspected, she was started on a Protonix and she underwent EGD today with GI service showing 2 nonbleeding gastric prepyloric ulcers with no stigmata of bleeding and biopsy were taken. A team also recommended outpatient colonoscopy and repeat EGD in 8 weeks. Hemoglobin is 7.2, start iron pills Pulmonary service following the patient as they represent her primary care. No active pulmonary issue currently. Patient denies use of NSAIDs or steroids Patient denies smoking, alcohol or illicit drugs Review of Systems CONSTITUTIONAL: No fever, no malaise, no fatigue. HEENT: No recent visual problems or hearing problems. Denied any sore throat. CARDIOVASCULAR: No orthopnea, PND, no palpitations, no syncope. PULMONARY: No shortness of breath, no cough, no hemoptysis. GASTROINTESTINAL: No constipation, no abdominal pain. Normoactive bowel sounds. NEUROLOGICAL: No headaches, no weakness, no numbness. HEMATOLOGICAL: Denies any bleeding or petechiae. GENITOURINARY: Denies any burning micturition, frequency, or urgency. MUSCULOSKELETAL/RHEUMATOLOGICAL: Denies any joint pain, swelling, or any muscle pain. ENDOCRINE: Denies any polyuria or polydipsia. Past Medical History Past Medical History: Atrial Fibrillation, Asthma, Cancer, Hyperlipidemia, Hype rtension, Thyroid Disorder Additional Past Medical History / Comment(s): Left Breast CA (45 yr ago) History of Any Multi-Drug Resistant Organisms: None Reported Past Surgical History: Breast Surgery, Cardiac Ablation, Hysterectomy, Joint Replacement, Orthopedic Surgery Additional Past Surgical History / Comment(s): left modified mastectomy, arthroscopic left knee, splenectomy, tlk Past Anesthesia/Blood Transfusion Reactions: No Reported Reaction Past Psychological History: No Psychological Hx Reported Smoking Status: Never smoker Past Alcohol Use History: None Reported Past Drug Use History: None Reported Medications and Allergies Home Medications Medication Instructions Recorded Confirmed Type ALPRAZolam [Xanax] 0.5 mg PO DAILY PRN 06/23/17 12/17/20 History Budesonide/Formoterol Fumarate 1 puff INHALATION RT-DAILY 06/23/17 12/17/20 History [Symbicort 160-4.5 Mcg Inhaler] Calcium Carbonate [Calcium] 600 mg PO DAILY 06/23/17 12/17/20 History Levothyroxine Sodium [Synthroid] 50 mcg PO DAILY 06/23/17 12/17/20 History Losartan [Cozaar] 50 mg PO DAILY 06/23/17 12/17/20 History Montelukast [Singulair] 10 mg PO HS 06/23/17 12/17/20 History C,E,Zinc,Copper 11/Kdals8l/Lut 1 each PO DAILY 08/09/19 12/17/20 History [Ocuvite Adult 50 Plus Softgel] Sertraline HCl [Zoloft] 100 mg PO DAILY 08/09/19 12/17/20 History Donepezil HCl [Aricept] 5 mg PO DAILY 12/17/20 12/17/20 History gemfibroziL [Lopid] 600 mg PO BID 12/17/20 12/17/20 History Allergies Allergy/AdvReac Type Severity Reaction Status Date / Time Vsekerr-Hfv-Wjw Reductase AdvReac MUSCLE Verified 12/17/20 18:35 Inhibitor RIGIGITY/WEAKNESS Physical Exam Vitals: Vital Signs Temp Pulse Pulse Resp BP BP Pulse Ox 12/18/20 04:00 89 18 144/70 95 12/18/20 01:46 87 18 12/18/20 00:00 87 18 113/67 95 12/17/20 20:50 98.4 F 78 18 129/73 97 12/17/20 19:18 90 18 124/73 97 12/17/20 13:28 97.8 F 91 18 94/59 98 Intake and Output 12/17/20 12/18/20 12/18/20 22:59 06:59 14:59 Intake Total 500 Balance 500 Intake: Intake, IV Titration 500 Amount Sodium Chloride 0.9% 1, 500 000 ml @ 100 mls/hr IV . Q10H [facility] Rx#:[id number] Other: # Voids 1 Weight 71.668 kg 72.6 kg GENERAL: The patient is alert and oriented x3, not in any acute distress. Well developed, well nourished. HEENT: Pupils are round and equally reacting to light. EOMI. No scleral icterus. No conjunctival pallor. Normocephalic, atraumatic. No pharyngeal erythema. No thyromegaly. CARDIOVASCULAR: S1 and S2 present. No murmurs, rubs, or gallops. PULMONARY: Chest is clear to auscultation, no wheezing or crackles. ABDOMEN: Soft, nontender, nondistended, normoactive bowel sounds. No palpable organomegaly. MUSCULOSKELETAL: No joint swelling or deformity. EXTREMITIES: No cyanosis, clubbing, or pedal edema. NEUROLOGICAL: Gross neurological examination did not reveal any focal deficits. SKIN: No rashes. No petechiae Results CBC & Chem 7: 12/18/20 16:18 12/17/20 14:36 Labs: Abnormal Lab Results - Last 24 Hours (Table) 12/17/20 12/17/20 12/17/20 Range/Units 14:36 14:36 14:36 WBC 12.7 H (3.8-10.6) k/uL RBC 3.22 L (3.80-5.40) m/uL Hgb 9.6 L (11.4-16.0) gm/dL Hct 30.4 L (34.0-46.0) % Neutrophils # 11.3 H (1.3-7.7) k/uL Lymphocytes # 0.9 L (1.0-4.8) k/uL Chloride 109 H (98-107) mmol/L BUN 55 H (7-17) mg/dL Glucose 120 H (74-99) mg/dL Total Protein 6.2 L (6.3-8.2) g/dL Stool Occult Blood Positive H (Negative) 12/17/20 12/17/20 12/18/20 Range/Units 18:30 21:56 06:15 WBC (3.8-10.6) k/uL RBC 2.89 L 2.71 L 2.49 L (3.80-5.40) m/uL Hgb 9.0 L 8.5 L 7.7 L (11.4-16.0) gm/dL Hct 27.2 L 25.1 L 23.3 L (34.0-46.0) % Neutrophils # 9.0 H (1.3-7.7) k/uL Lymphocytes # (1.0-4.8) k/uL Chloride (98-107) mmol/L BUN (7-17) mg/dL Glucose (74-99) mg/dL Total Protein (6.3-8.2) g/dL Stool Occult Blood (Negative) Thrombosis Risk Factor Assmnt - Choose All That Apply Any of the Below Risk Factors Present?: Yes Each Factor Represents 1 point: Obesity (BMI >25) Other Risk Factors: Yes Each Risk Factor Represents 2 Points: Age 61-74 years Other congenital or acquired thrombophilia - If yes, enter type in comment: No Thrombosis Risk Factor Assessment Total Risk Factor Score: 3 Thrombosis Risk Factor Assessment Level: Moderate Risk Assessment and Plan Assessment: Acute upper GI bleed secondary to abnormal bleeding gastric prepyloric ulcers on EGD done on 12/18 Blood loss anemia history of asthma, not an active issue Plan: This is a pleasant 75 years old female who presents with GI bleed secondary to , continue with Protonix. Avoid NSAIDs. Follow-up stomach biopsy as an outpatient. GI and pulmonary team consults Start iron pills Labs and medication were reviewed.. Continue same treatment. Continue with symptomatic treatment. Resume home medication. Monitor lytes and vitals. DVT and GI prophylaxis. Further recommendations depends on the clinical course of the patient DVT prophylaxis: no heparin for GI bleed, continue with mechanical GI Prophylaxis: Ppi possible discharge in 24-48 hours if she keeps improvement
[2020-12-18] MEDS: FERROUS SULFATE 325 MG TAB PO SCH (23:14)
[2020-12-19] MEDS: LEVOTHYROXINE 50 MCG TAB PO SCH (06:13)
[2020-12-19] MEDS: FERROUS SULFATE 325 MG TAB PO SCH ×2 (06:13→16:15)
[2020-12-19 07:40] LABS: African American GFR (CKD) >90 (>60 ml/min/1.73 sqM); Anion Gap 5 mmol/L; Blood Urea Nitrogen 16 mg/dL (7-17); Calcium 8.4 mg/dL (8.4-10.2); Carbon Dioxide 26 mmol/L (22-30); Chloride 109 mmol/L (98-107); Glucose 99 mg/dL (74-99); Non-African American GFR(CKD) 86 (>60 ml/min/1.73 sqM); Potassium 3.9 mmol/L (3.5-5.1); Sodium 140 mmol/L (137-145)
[2020-12-19 07:42] LABS: Basophils % (A) 0 %; Eosinophils # (A) 0.1 k/uL (0-0.7); Eosinophils % (A) 2 %; HCT 22.2 % (34.0-46.0); HGB 7.4 gm/dL (11.4-16.0); Lymphocytes # (A) 1.9 k/uL (1.0-4.8); Lymphocytes % (A) 24 %; MCH 31.4 pg (25.0-35.0); MCHC 33.4 g/dL (31.0-37.0); MCV 93.8 fL (80.0-100.0); Mean Platelet Volume 7.8; Monocytes # (A) 0.3 k/uL (0-1.0); Monocytes % (A) 4 %; Neutrophils # (A) 5.4 k/uL (1.3-7.7); Neutrophils % (A) 68 %; Platelet Count 257 k/uL (150-450); RBC 2.36 m/uL (3.80-5.40); RDW 13.2 % (11.5-15.5); WBC 7.9 k/uL (3.8-10.6)
[2020-12-19] MEDS: SERTRALINE 100 MG TAB PO SCH (08:22)
[2020-12-19] MEDS: DONEPEZIL 5 MG TAB PO SCH (08:22)
[2020-12-19] MEDS: PANTOPRAZOLE 40 MG/10 ML VIAL IVP SCH ×2 (08:22→20:45)
[2020-12-19] MEDS: LOSARTAN 50 MG TAB PO SCH (08:22)
[2020-12-19] MEDS: SODIUM CHLORIDE 0.9% 1,000 ML IV SCH ×2 (08:24→23:58)
[2020-12-19] MEDS: SYMBICORT 160-4.5 MCG INHALER INHALATION SCH ×2 (09:01→20:17)
--- NOTE | 2020-12-19 12:31 | P.PN ---
Subjective Progress Note Date: 12/19/20 Principal diagnosis: Acute GI bleeding, black tarry stools, coffee-ground emesis, syncopal episodes 75-year-old white female patient with past medical history of chronic bronchial asthma, hypertension, hyperlipidemia history of left breast cancer, hypothyroidism, anxiety, benign paroxysmal positional vertigo, never smoker. Patient's surgical history is significant for splenectomy, left mastectomy for history of left breast cancer, hysterectomy, she also had left arthroscopic knee surgery. On 12/17/2020 patient presented to the emergency department for evaluation of black tarry stools that started this morning. Patient also had dark coffee ground emesis. States she had near syncopal episodes 3 times when she was going to the bathroom. She felt very lightheaded and weak. No chest pain, no shortness of breath, no abdominal pain, she did feel nauseous. She states [place], and in the knee she had one beer and one rum and Coke otherwise she denies any heavy alcohol use. Patient is on full dose aspirin 325 mg, no other anticoagulation. There is questionable history of atrial fibrillation. Her hemoglobin on arrival to the hospital was 12.8, white count was 4.86, platelet count 324, electrolytes and renal profile were unremarkable, LFTs were within normal limits, stool for occult blood was found to be positive. Patient was given a liter bolus wide open in the emergency department which she states made her feel a lot better as she was extremely dizzy. Patient's blood pressure in the emergency department during our evaluation is 90s over 40s, room air pulse ox 98%, heart rate is 70-90 BPM, she is afebrile. She is awake and alert, appears to be slightly pale, but no acute distress. She is nothing by mouth, she is awaiting GI service evaluation. Follow-up hemoglobin came back at 9.6. No further black stools or vomiting in the emergency department On 12/18/2020 patient seen in follow-up on selective care unit, she is awake and alert, she feels less weak and lightheaded, she has had no recurrence of black tarry stools or coffee-ground emesis since her admission, remains on IV fluids with point and was seen at a rate of 100 ML per hour, today's hemoglobin is down to 7.7. Her blood pressure has been stable. She has been nothing by mouth since admission, no abdominal pain, no fever or chills, room air pulse ox is 95%. Remains on Protonix 40 mg twice daily. GI evaluation is pending. On 12/19/2020 patient seen in follow-up on selective care unit. She is status post EGD which showed nonbleeding prepyloric ulcers without high risk stigmata for bleeding. Vital signs have been stable, today's hemoglobin is 7.2. Patient did have one bowel movement yesterday and she states he was less dark and tarry compared to preadmission. No hematemesis, no coffee ground emesis. Remains on Protonix twice daily. Maintenance IV fluids at 100 ML per hour, GI service is following, and recommended following up with another EGD in 6 weeks time. Objective - Vital Signs Vital signs: Vital Signs Temp 98.7 F 12/19/20 08:17 Pulse 75 12/19/20 08:17 Resp 16 12/19/20 08:17 BP 112/61 12/19/20 08:17 Pulse Ox 96 12/19/20 08:17 Intake & Output 12/18/20 12/19/20 12/19/20 18:59 06:59 18:59 Intake Total 670 240 480 Output Total 2 120 Balance 668 120 480 Weight 72.3 kg Intake: IV 50 Oral 620 240 480 Output: Urine 2 120 Other: Voiding Method Toilet Toilet Toilet # Voids 1 1 # Bowel Movements 1 - Exam GENERAL EXAM: Alert, very pleasant, 75-year-old white female, on room air, appears slightly pale, but fairly comfortable in no apparent distress. No acute distress noted HEAD: Normocephalic/atraumatic. EYES: Normal reaction of pupils, equal size. Conjunctiva pink, sclera white. NOSE: Clear with pink turbinates. THROAT: No erythema or exudates. NECK: No masses, no JVD, no thyroid enlargement, no adenopathy. CHEST: No chest wall deformity. Symmetrical expansion. LUNGS: Equal air entry with no crackles, wheeze, rhonchi or dullness. CVS: Regular rate and rhythm, normal S1 and S2, no gallops, no murmurs, no rubs ABDOMEN: Soft, nontender. No hepatosplenomegaly, normal bowel sounds, no guarding or rigidity. EXTREMITIES: No clubbing, no edema, no cyanosis, 2+ pulses and upper and lower extremities. MUSCULOSKELETAL: Muscle strength and tone normal. SPINE: No scoliosis or deformity SKIN: No rashes CENTRAL NERVOUS SYSTEM: Alert and oriented -3. No focal deficits, tone is normal in all 4 extremities. PSYCHIATRIC: Alert and oriented -3. Appropriate affect. Intact judgment and insight. - Labs CBC & Chem 7: 12/19/20 06:52 12/19/20 06:52 Labs: Abnormal Lab Results - Last 24 Hours (Table) 12/18/20 12/19/20 12/19/20 Range/Units 16:18 06:52 06:52 RBC 2.37 L 2.36 L (3.80-5.40) m/uL Hgb 7.2 L 7.4 L (11.4-16.0) gm/dL Hct 22.6 L 22.2 L (34.0-46.0) % Chloride 109 H (98-107) mmol/L Assessment and Plan Plan: Assessment: #1. Acute GI blood loss anemia, patient presented with symptoms of black tarry stools, and dark colored vomiting that started in the morning on 12/17/2020. Occult stool was positive. Status post EGD on 12/18/2020 that showed 2 nonbleeding prepyloric ulcers without high risk stigmata for rebleeding #2. Syncopal episodes, weakness, lightheadedness related to the above improved with IV fluid bolus #3. Hypertension #4. 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 History of atrial fibrillation with cardiac ablation #7. Anxiety #8. History of chronic bronchial asthma, unspecified stable at this time #9. Hypercholesterolemia #10. History of left breast cancer with history of left mastectomy #11. History of splenectomy #12. History of left knee arthroplasty #13. History of hysterectomy #14. Never smoker Plan: Continue with IV Protonix Continue IV fluids Diet per GI service recommendations EGD findings were noted Recommend keeping the patient for another 24 hours and monitor her H&H Monitor for recurrence of GI bleeding Home meds have been restarted We'll continue to follow I performed a history & physical examination of the patient and discussed their management with my nurse practitioner, Antonieta Barros. I reviewed the nurse practitioner's note and agree with the documented findings and plan of care. Lung sounds are positive for clear breath sounds. The findings and the impression was discussed with the patient. I attest to the documentation by the nurse practitioner. Time with Patient: Less than 30
[2020-12-19] MEDS ORDERED: PROMETHAZINE 25 MG TAB PO PRN (13:00)
--- NOTE | 2020-12-19 13:22 | P.PN ---
Subjective Progress Note Date: 12/19/20 Principal diagnosis: Anemia, GI bleed The patient seen and examined lying in bed. She denies any abdominal pain, nausea or vomiting. She is tolerating her diet. She is passing gas, had a bowel movement yesterday evening which he states was dark but not as dark. Her hemoglobin is stable at 7.4. She has status post EGD with findings of 2 non- bleeding prepyloric gastric ulcers without high-risk stigmata for bleeding. No active bleeding or old blood noted. Biopsies were taken. Objective - Vital Signs Vital signs: Vital Signs Temp 98.7 F 12/19/20 08:17 Pulse 75 12/19/20 08:17 Resp 16 12/19/20 08:17 BP 112/61 12/19/20 08:17 Pulse Ox 96 12/19/20 08:17 Intake & Output 12/18/20 12/19/20 12/19/20 18:59 06:59 18:59 Intake Total 670 240 480 Output Total 2 120 Balance 668 120 480 Weight 72.3 kg Intake: IV 50 Oral 620 240 480 Output: Urine 2 120 Other: Voiding Method Toilet Toilet Toilet # Voids 1 1 # Bowel Movements 1 - Exam General appearance: The patient is alert, oriented, appears in no acute distress. HET: Head is normocephalic and atraumatic. Conjunctiva pink. Sclera anicteric. Neck: Supple without lymphadenopathy. Abdomen: Soft, nontender, nondistended with bowel sounds. No guarding or rigidity. Extremities: Normal skin color and turgor. No pedal edema Skin: No rashes, no jaundice Neurological: No focal deficits. Alert and oriented 3. - Labs CBC & Chem 7: 12/19/20 06:52 12/19/20 06:52 Labs: Abnormal Lab Results - Last 24 Hours (Table) 12/18/20 12/19/20 12/19/20 Range/Units 16:18 06:52 06:52 RBC 2.37 L 2.36 L (3.80-5.40) m/uL Hgb 7.2 L 7.4 L (11.4-16.0) gm/dL Hct 22.6 L 22.2 L (34.0-46.0) % Chloride 109 H (98-107) mmol/L Assessment and Plan (1) Normochromic normocytic anemia Narrative/Plan: 75-year-old female who presented to the emergency department yesterday by EMS for complaints of black stool, followed by abdominal pain nausea and vomiting of coffee-ground emesis and bright red emesis. She also states that she had 3 syncopal episodes and passed out. She has no previous history of GI bleed, no previous history of peptic ulcer disease, denies any previous EGD. Last colonoscopy 10-15 years ago which she believes was normal. She denies any antic oagulation, NSAID use, or alcohol abuse. Labs are consistent with a normochromic normocytic anemia. She has stated that she's had some acid reflux which has been worse lately, was started on Pepcid 20 mg twice daily. Possible etiologies include peptic ulcer disease, gastritis, esophagitis, AVMs, or other possible etiologies. Will proceed with EGD today. Current Visit: Yes Status: Acute Code(s): D64.9 - ANEMIA, UNSPECIFIED SNOMED Code(s): 34986489 (2) GI bleed Narrative/Plan: Patient is status post EGD with 2 nonbleeding prepyloric gastric ulcers without high risk stigmata for bleeding, no active bleeding or old blood noted. Biopsies taken. Current Visit: Yes Status: Acute Code(s): K92.2 - GASTROINTESTINAL HEMORRHAGE, UNSPECIFIED SNOMED Code(s): 52650343 Plan: 1. Increase diet as tolerated 2. Daily CBC, transfuse for hemoglobin less than 7 3. Avoid NSAIDs 4. Patient is status post EGD. 5. Protonix 40 mg twice a day 6. Patient to follow-up with gastroenterology for repeat EGD and colonoscopy in 8 weeks Thank you for this consultation, we will continue to follow Dr. Louis I agree with the dictator's note, documented as a scribe by Shelbi Liz.
[2020-12-19] MEDS: FENOFIBRATE 160 MG TAB PO SCH (20:45)
[2020-12-19] MEDS: MONTELUKAST 10 MG TAB PO SCH (20:45)
--- NOTE | 2020-12-19 21:38 | P.PN ---
Subjective This is a pleasant 75 years old female with multiple medical problems as below. Presents because of one-day history of vomiting bloody discharge, 3 times with no significant abdominal pain associated with black-colored diarrhea about 4-5 times with no fresh blood. Upper GI bleeding is suspected, she was started on a Protonix and she underwent EGD today with GI service showing 2 nonbleeding gastric prepyloric ulcers with no stigmata of bleeding and biopsy were taken. A team also recommended outpatient colonoscopy and repeat EGD in 8 weeks. Hemoglobin is 7.2, start iron pills Pulmonary service following the patient as they represent her primary care. No active pulmonary issue currently. Patient denies use of NSAIDs or steroids Patient denies smoking, alcohol or illicit drugs 12/19/2020 Patient today clinically is doing well. She is tolerating diet. No abdominal pain. No diarrhea. However she still has some nausea which is controlled with Phenergan. Hemoglobin is still slightly went up from 7.2-7.4. Patient is a started on iron pills Keep monitoring the patient for another 24 hours, keep monitoring hemoglobin per pulmonary team recommendation GI team on the case Today I discussed the plan with the patient and the need to repeat EGD and possible colonoscopy with GI team in 8 weeks and she verbalized understanding and acceptance. Patient was instructed to follow up with her stomach biopsy as an outpatient with GI team and she agrees as well Objective - Vital Signs Vital signs: Vital Signs Temp 98.4 F 12/19/20 16:13 Pulse 95 12/19/20 16:13 Resp 16 12/19/20 16:13 BP 116/59 12/19/20 16:13 Pulse Ox 98 12/19/20 16:13 Intake & Output 12/19/20 12/19/20 12/20/20 06:59 18:59 06:59 Intake Total 240 1600 Output Total 120 Balance 120 1600 Weight 72.3 kg Intake: Intake, IV Titration 400 Amount Sodium Chloride 0.9% 1, 400 000 ml @ 100 mls/hr IV . Q10H [facility] Rx#:[id number] Oral 240 1200 Output: Urine 120 Other: Voiding Method Toilet Toilet # Voids 1 2 1 - Exam GENERAL: The patient is alert and oriented x3, not in any acute distress. Well developed, well nourished. HEENT: Pupils are round and equally reacting to light. EOMI. No scleral icterus. No conjunctival pallor. Normocephalic, atraumatic. No pharyngeal erythema. No thyromegaly. CARDIOVASCULAR: S1 and S2 present. No murmurs, rubs, or gallops. PULMONARY: Chest is clear to auscultation, no wheezing or crackles. ABDOMEN: Soft, nontender, nondistended, normoactive bowel sounds. No palpable organomegaly. MUSCULOSKELETAL: No joint swelling or deformity. EXTREMITIES: No cyanosis, clubbing, or pedal edema. NEUROLOGICAL: Gross neurological examination did not reveal any focal deficits. SKIN: No rashes. no petechiae. - Labs CBC & Chem 7: 12/19/20 06:52 12/19/20 06:52 Labs: Abnormal Lab Results - Last 24 Hours (Table) 12/19/20 12/19/20 Range/Units 06:52 06:52 RBC 2.36 L (3.80-5.40) m/uL Hgb 7.4 L (11.4-16.0) gm/dL Hct 22.2 L (34.0-46.0) % Chloride 109 H (98-107) mmol/L Assessment and Plan Assessment: Acute upper GI bleed secondary to abnormal bleeding gastric prepyloric ulcers on EGD done on 12/18 Blood loss anemia history of asthma, not an active issue Plan: This is a pleasant 75 years old female who presents with GI bleed secondary to , continue with Protonix. Avoid NSAIDs. Follow-up stomach biopsy as an outpatient (patient aware). GI and pulmonary team consults Start iron pills repeat EGD and possible colonoscopy with GI team in 8 weeks and patient informed Labs and medication were reviewed.. Continue same treatment. Continue with symptomatic treatment. Resume home medication. Monitor lytes and vitals. DVT and GI prophylaxis. Further recommendations depends on the clinical course of the patient DVT prophylaxis: no heparin for GI bleed, continue with mechanical GI Prophylaxis: Ppi possible discharge in 24-48 hours if she keeps improvement
[2020-12-20] MEDS: LEVOTHYROXINE 50 MCG TAB PO SCH (06:40)
[2020-12-20] MEDS: FERROUS SULFATE 325 MG TAB PO SCH (06:40)
[2020-12-20] MEDS: SYMBICORT 160-4.5 MCG INHALER INHALATION SCH (07:41)
[2020-12-20 07:47] LABS: HGB 7.1 gm/dL (11.4-16.0); MCH 31.2 pg (25.0-35.0); MCHC 33.7 g/dL (31.0-37.0); MCV 92.6 fL (80.0-100.0); Mean Platelet Volume 7.7; Platelet Count 271 k/uL (150-450); RBC 2.27 m/uL (3.80-5.40); RDW 13.5 % (11.5-15.5); WBC 7.8 k/uL (3.8-10.6)
[2020-12-20] MEDS: SODIUM CHLORIDE 0.9% 1,000 ML IV SCH (08:51)
[2020-12-20] MEDS: SERTRALINE 100 MG TAB PO SCH (09:00)
[2020-12-20] MEDS: LOSARTAN 50 MG TAB PO SCH (09:00)
[2020-12-20] MEDS: DONEPEZIL 5 MG TAB PO SCH (09:00)
[2020-12-20] MEDS: PANTOPRAZOLE 40 MG/10 ML VIAL IVP SCH (09:00)
[2020-12-20 12:30] VITALS: BP 121/57; PULSE 82; RESP 18; TEMP 98
--- NOTE | 2020-12-20 13:06 | P.PN ---
Subjective Progress Note Date: 12/20/20 Principal diagnosis: Anemia, GI bleed A shunt seen and examined lying in bed. She had a slight drop in her hemoglobin from 7.4-7.1. She denies any abdominal pain states she had a little mild burning in the epigastric area after her coffee this morning. Denies any nausea or vomiting. She did have a bowel movement this morning which she states is still black but slightly green. Objective - Vital Signs Vital signs: Vital Signs Temp 98.8 F 12/20/20 08:51 Pulse 83 12/20/20 08:51 Resp 16 12/20/20 08:51 BP 132/62 12/20/20 08:51 Pulse Ox 98 12/20/20 08:51 Intake & Output 12/19/20 12/20/20 12/20/20 18:59 06:59 18:59 Intake Total 1600 120 Balance 1600 120 Weight 72.5 kg Intake: Intake, IV Titration 400 Amount Sodium Chloride 0.9% 1, 400 000 ml @ 100 mls/hr IV . Q10H [facility] Rx#:[id number] Oral 1200 120 Other: Voiding Method Toilet Toilet # Voids 2 1 - Exam General appearance: The patient is alert, oriented, appears in no acute distress. HET: Head is normocephalic and atraumatic. Conjunctiva pink. Sclera anicteric. Neck: Supple without lymphadenopathy. Abdomen: Soft, nontender, nondistended with bowel sounds. No guarding or rigidity. Extremities: Normal skin color and turgor. No pedal edema Skin: No rashes, no jaundice Neurological: No focal deficits. Alert and oriented 3. - Labs CBC & Chem 7: 12/20/20 07:20 12/19/20 06:52 Labs: Abnormal Lab Results - Last 24 Hours (Table) 12/20/20 Range/Units 07:20 RBC 2.27 L (3.80-5.40) m/uL Hgb 7.1 L (11.4-16.0) gm/dL Hct 21.0 L (34.0-46.0) % Assessment and Plan (1) Normochromic normocytic anemia Narrative/Plan: 75-year-old female who presented to the emergency department yesterday by EMS for complaints of black stool, followed by abdominal pain nausea and vomiting of coffee-ground emesis and bright red emesis. She also states that she had 3 syncopal episodes and passed out. She has no previous history of GI bleed, no previous history of peptic ulcer disease, denies any previous EGD. Last colonoscopy 10-15 years ago which she believes was normal. She denies any anticoagulation, NSAID use, or alcohol abuse. Labs are consistent with a normochromic normocytic anemia. She has stated that she's had some acid reflux which has been worse lately, was started on Pepcid 20 mg twice daily. Possible etiologies include peptic ulcer disease, gastritis, esophagitis, AVMs, or other possible etiologies. Will proceed with EGD today. Current Visit: Yes Status: Acute Code(s): D64.9 - ANEMIA, UNSPECIFIED SNOMED Code(s): 35204337 (2) GI bleed Narrative/Plan: Patient is status post EGD with 2 nonbleeding prepyloric gastric ulcers without high risk stigmata for bleeding, no active bleeding or old blood noted. Biopsies taken. Current Visit: Yes Status: Acute Code(s): K92.2 - GASTROINTESTINAL HEMOR RHAGE, UNSPECIFIED SNOMED Code(s): 82604138 Plan: 1. Diet As tolerated 2. Daily CBC, transfuse for hemoglobin less than 7 3. Avoid NSAIDs 4. Patient is status post EGD. 5. Protonix 40 mg twice a day 6. Iron studies ordered 7. Patient to follow-up with gastroenterology for repeat EGD and colonoscopy in 6-8 weeks Thank you for this consultation, patient is cleared for discharge by gastroenterology Dr. Louis I agree with the dictator's note, documented as a scribe by Shelbi Liz.
--- NOTE | 2020-12-20 13:13 | P.PN ---
Subjective Progress Note Date: 12/20/20 Principal diagnosis: Acute GI bleeding, black tarry stools, coffee-ground emesis, syncopal episodes 75-year-old white female patient with past medical history of chronic bronchial asthma, hypertension, hyperlipidemia history of left breast cancer, hypothyroidism, anxiety, benign paroxysmal positional vertigo, never smoker. Patient's surgical history is significant for splenectomy, left mastectomy for history of left breast cancer, hysterectomy, she also had left arthroscopic knee surgery. On 12/17/2020 patient presented to the emergency department for evaluation of black tarry stools that started this morning. Patient also had dark coffee ground emesis. States she had near syncopal episodes 3 times when she was going to the bathroom. She felt very lightheaded and weak. No chest pain, no shortness of breath, no abdominal pain, she did feel nauseous. She states [place], and in the knee she had one beer and one rum and Coke otherwise she denies any heavy alcohol use. Patient is on full dose aspirin 325 mg, no other anticoagulation. There is questionable history of atrial fibrillation. Her hemoglobin on arrival to the hospital was 12.8, white count was 4.86, platelet count 324, electrolytes and renal profile were unremarkable, LFTs were within normal limits, stool for occult blood was found to be positive. Patient was given a liter bolus wide open in the emergency department which she states made her feel a lot better as she was extremely dizzy. Patient's blood pressure in the emergency department during our evaluation is 90s over 40s, room air pulse ox 98%, heart rate is 70-90 BPM, she is afebrile. She is awake and alert, appears to be slightly pale, but no acute distress. She is nothing by mouth, she is awaiting GI service evaluation. Follow-up hemoglobin came back at 9.6. No further black stools or vomiting in the emergency department On 12/18/2020 patient seen in follow-up on selective care unit, she is awake and alert, she feels less weak and lightheaded, she has had no recurrence of black tarry stools or coffee-ground emesis since her admission, remains on IV fluids with point and was seen at a rate of 100 ML per hour, today's hemoglobin is down to 7.7. Her blood pressure has been stable. She has been nothing by mouth since admission, no abdominal pain, no fever or chills, room air pulse ox is 95%. Remains on Protonix 40 mg twice daily. GI evaluation is pending. On 12/19/2020 patient seen in follow-up on selective care unit. She is status post EGD which showed nonbleeding prepyloric ulcers without high risk stigmata for bleeding. Vital signs have been stable, today's hemoglobin is 7.2. Patient did have one bowel movement yesterday and she states he was less dark and tarry compared to preadmission. No hematemesis, no coffee ground emesis. Remains on Protonix twice daily. Maintenance IV fluids at 100 ML per hour, GI service is following, and recommended following up with another EGD in 6 weeks time. On 12/20/2020 patient seen in follow-up on selective care unit, she is resting comfortably in bed, in no acute distress, vital signs are stable, no complaints of chest pain, she is breathing comfortably, room air pulse ox is 96%, she is afebrile. Blood pressure is stable, today's labs have been reviewed showing hemoglobin of 7.1. No further black bowel movements, no coffee ground emesis, no hematemesis. Remains on Protonix IV twice daily. Objective - Vital Signs Vital signs: Vital Signs Temp 98.0 F 12/20/20 12:29 Pulse 82 12/20/20 12:29 Resp 18 12/20/20 12:29 BP 121/57 12/20/20 12:29 Pulse Ox 96 12/20/20 12:29 Intake & Output 12/19/20 12/20/20 12/20/20 18:59 06:59 18:59 Intake Total 1600 120 Balance 1600 120 Weight 72.5 kg Intake: Intake, IV Titration 400 Amount Sodium Chloride 0.9% 1, 400 000 ml @ 100 mls/hr IV . Q10H [facility] Rx#:[id number] Oral 1200 120 Other: Voiding Method Toilet Toilet # Voids 2 1 - Exam GENERAL EXAM: Alert, very pleasant, 75-year-old white female, on room air, appears slightly pale, but fairly comfortable in no apparent distress. No acute distress noted HEAD: Normocephalic/atraumatic. EYES: Normal reaction of pupils, equal size. Conjunctiva pink, sclera white. NOSE: Clear with pink turbinates. THROAT: No erythema or exudates. NECK: No masses, no JVD, no thyroid enlargement, no adenopathy. CHEST: No chest wall deformity. Symmetrical expansion. LUNGS: Equal air entry with no crackles, wheeze, rhonchi or dullness. CVS: Regular rate and rhythm, normal S1 and S2, no gallops, no murmurs, no rubs ABDOMEN: Soft, nontender. No hepatosplenomegaly, normal bowel sounds, no guarding or rigidity. EXTREMITIES: No clubbing, no edema, no cyanosis, 2+ pulses and upper and lower extremities. MUSCULOSKELETAL: Muscle strength and tone normal. SPINE: No scoliosis or deformity SKIN: No rashes CENTRAL NERVOUS SYSTEM: Alert and oriented -3. No focal deficits, tone is normal in all 4 extremities. PSYCHIATRIC: Alert and oriented -3. Appropriate affect. Intact judgment and insight. - Labs CBC & Chem 7: 12/20/20 07:20 12/19/20 06:52 Labs: Abnormal Lab Results - Last 24 Hours (Table) 12/20/20 Range/Units 07:20 RBC 2.27 L (3.80-5.40) m/uL Hgb 7.1 L (11.4-16.0) gm/dL Hct 21.0 L (34.0-46.0) % Assessment and Plan Plan: Assessment: #1. Acute GI blood loss anemia, patient presented with symptoms of black tarry stools, and dark colored vomiting that started in the morning on 12/17/2020. Occult stool was positive. Status post EGD on 12/18/2020 that showed 2 nonbleeding prepyloric ulcers without high risk stigmata for rebleeding #2. Syncopal episodes, weakness, lightheadedness related to the above improved with IV fluid bolus #3. Hypertension #4. 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 History of atrial fibrillation with cardiac ablation #7. Anxiety #8. History of chronic bronchial asthma, unspecified stable at this time #9. Hypercholesterolemia #10. History of left breast cancer with history of left mastectomy #11. History of splenectomy #12. History of left knee arthroplasty #13. History of hysterectomy #14. Never smoker Plan: Vital signs are stable No rebleeding in the last 24 hours No complaints of chest pain, shortness of breath Today's labs have been noted Hemoglobin 7.1 Patient is tolerating regular diet She was started on oral iron supplements She will need outpatient follow-up with Dr. Mason early next week Follow-up with Dr. Schuler Otherwise she stable for discharge home from pulmonary perspective and she will need to continue on oral [id number] mg twice daily and iron supplements per GI recommendations I performed a history & physical examination of the patient and discussed their management with my nurse practitioner, Antonieta Barros. I reviewed the nurse practitioner's note and agree with the documented findings and plan of care. Lung sounds are positive for clear breath sounds. The findings and the impression was discussed with the patient. I attest to the documentation by the nurse practitioner. Time with Patient: Less than 30
[2020-12-20 17:16] LABS: % Iron Saturation 17.33 (12.00-45.00)
[2020-12-20 17:25] LABS: Ferritin 133.1 ng/mL (10.0-291.0)
--- NOTE | 2020-12-20 22:11 | P.DS ---
Providers Date of admission: 12/17/20 16:57 Attending physician: Rose Perez Consults: 12/17/20 16:35 Consult Physician Routine Consulting Provider: Lance Louis Consult Reason/Comments: gi bleed Do you want consulting provider notified?: Yes Primary care physician: Isaac Mason Hospital Course: Diagnoses: Acute upper GI bleed secondary to abnormal bleeding gastric prepyloric ulcers on EGD done on 12/18 Blood loss anemia history of asthma, not an active issue Hospital course: 75-year-old white female patient with past medical history of chronic bronchial asthma, hypertension, hyperlipidemia history of left breast cancer, hypothyroidism, anxiety, benign paroxysmal positional vertigo, never smoker. Patient's surgical history is significant for splenectomy, left mastectomy for history of left breast cancer, hysterectomy, she also had left arthroscopic knee surgery. On 12/17/2020 patient presented to the emergency department for evaluation of black tarry stools that started that morning. Patient also had dark coffee ground emesis. States she had near syncopal episodes 3 times when she was going to the bathroom. Patient was admitted with acute GI bleed. She was evaluated by GI team and underwent EGD showing to nonbleeding prepyloric gastric ulcers. Patient was treated with IV hydration which is stopped prior to discharge, also with Protonix twice daily. Her hemoglobin remained stable at 7.1 upon discharge. No more bleeding with vomiting or stool. No abdominal pain. Patient also denies any other complaints like no chest pain or dyspnea. No fever. No urinary complaints. No weakness or headache. Patient has been evaluated by pulmonary service as she is known to their service and Dr. Mason is her PCP, also shortness of the office of Dr. Mason The day of discharge patient was pleasant and willing to go home. Patient was cleared for discharge by GI service and pulmonary service. Patient was instructed to follow up with GI service in 8 weeks to repeat EGD to ensure resolution and also for possible colonoscopy, patient informed and she agrees. Problems and management plan were discussed with the patient and he verbalized understanding and acceptance Patient was found stable and can be discharged home however he needs follow-up as an outpatient. Patient was instructed to follow up with PCP Dr. Mason within one week and patient agrees Also patient agrees with the appointments made for her with Dr. Tavarez of GI service on 01/08 stated she will follow up Physical exam Gen: patient is a AAOx3, no distress CVS: S1-S2, RRR, no murmur Lungs: B/L CTA, no wheezing Abdomen: soft, no distention, no tenderness, positive bowel sounds Extremity: no leg edema or induration Time spent more than 35 minutes Patient Condition at Discharge: Fair Plan - Discharge Summary Discharge Rx Participant: No New Discharge Prescriptions: New Pantoprazole Sodium [Protonix] 40 mg PO BID #60 tablet. Ferrous Sulfate [Iron (65 MG Elemental)] 325 mg PO TID-W/MEALS 21 Days #90 tab Continue Montelukast [Singulair] 10 mg PO HS Levothyroxine Sodium [Synthroid] 50 mcg PO DAILY ALPRAZolam [Xanax] 0.5 mg PO DAILY PRN PRN Reason: Anxiety Calcium Carbonate [Calcium] 600 mg PO DAILY Budesonide/Formoterol Fumarate [Symbicort 160-4.5 Mcg Inhaler] 1 puff INHALATION RT-DAILY Losartan [Cozaar] 50 mg PO DAILY Sertraline HCl [Zoloft] 100 mg PO DAILY C,E,Zinc,Copper 11/Ecyfh2b/Lut [Ocuvite Adult 50 Plus Softgel] 1 each PO DAILY Donepezil HCl [Aricept] 5 mg PO DAILY gemfibroziL [Lopid] 600 mg PO BID Discharge Medication List ALPRAZolam [Xanax] 0.5 mg PO DAILY PRN 06/23/17 [History] Budesonide/Formoterol Fumarate [Symbicort 160-4.5 Mcg Inhaler] 1 puff INHALATION RT-DAILY 06/23/17 [History] Calcium Carbonate [Calcium] 600 mg PO DAILY 06/23/17 [History] Levothyroxine Sodium [Synthroid] 50 mcg PO DAILY 06/23/17 [History] Losartan [Cozaar] 50 mg PO DAILY 06/23/17 [History] Montelukast [Singulair] 10 mg PO HS 06/23/17 [History] C,E,Zinc,Copper 11/Acgzr1a/Lut [Ocuvite Adult 50 Plus Softgel] 1 each PO DAILY 08/09/19 [History] Sertraline HCl [Zoloft] 100 mg PO DAILY 08/09/19 [History] Donepezil HCl [Aricept] 5 mg PO DAILY 12/17/20 [History] gemfibroziL [Lopid] 600 mg PO BID 12/17/20 [History] Ferrous Sulfate [Iron (65 MG Elemental)] 325 mg PO TID-W/MEALS 21 Days #90 tab 12/20/20 [Rx] Pantoprazole Sodium [Protonix] 40 mg PO BID #60 tablet. 12/20/20 [Rx] Follow up Appointment(s)/Referral(s): Shira Tavarez MD [STAFF PHYSICIAN] - 01/08/21 12:00 pm (follow your stomach biopsies you will need colonoscopy and repeat EGD in 8 weeks) Isaac Mason DO [Primary Care Provider] - 1-2 days Patient Instructions/Handouts: Gastrointestinal Bleeding (DC) Activity/Diet/Wound Care/Special Instructions: Heart healthy diet Activity is restricted till you see your doctor We recommend to avoid NSAIDs. No Motrin, not proceeding or Mobic or others. Also be advised to avoid steroids if possible Discharge Disposition: HOME SELF-CARE
== END 2020-12-20 15:53 | disposition home or self-care (01) | DRG 378 ==
LOC: EC 13:22 → 3SCARD 16:57
PROVIDERS: ADMIT Hospitalist; ATTEND Hospitalist
PROC: 0DB68ZX Excision of Stomach, Via Natural or Artificial Opening Endoscopic, Diagnostic (ICD-10-PCS; 2020-12-18)
PROC: 0DB98ZX Excision of Duodenum, Via Natural or Artificial Opening Endoscopic, Diagnostic (ICD-10-PCS; principal; 2020-12-18 07:30)
DX: K25.4 Chronic or unspecified gastric ulcer with hemorrhage (principal); D62 Acute posthemorrhagic anemia; I10 Essential (primary) hypertension; E03.9 Hypothyroidism, unspecified; F41.9 Anxiety disorder, unspecified; E78.00 Pure hypercholesterolemia, unspecified; J45.909 Unspecified asthma, uncomplicated; I48.91 Unspecified atrial fibrillation; R19.5 Other fecal abnormalities; E78.5 Hyperlipidemia, unspecified; Z85.3 Personal history of malignant neoplasm of breast; Z90.12 Acquired absence of left breast and nipple; K21.9 Gastro-esophageal reflux disease without esophagitis; Z20.822 Contact with and (suspected) exposure to COVID-19; Z90.81 Acquired absence of spleen; Z98.891 History of uterine scar from previous surgery; Z79.51 Long term (current) use of inhaled steroids; Z79.890 Hormone replacement therapy; Z79.899 Other long term (current) drug therapy; Z79.82 Long term (current) use of aspirin; Z91.048 Other nonmedicinal substance allergy status; Z90.710 Acquired absence of both cervix and uterus; Z96.652 Presence of left artificial knee joint; Z87.11 Personal history of peptic ulcer disease
CPT/HCPCS: 36415; 43239; 74018; 80048; 80053; 80061; 82248; 82272; 82306; 82550; 82728; 83036; 83540; 83550; 83605; 83690; 83735; 84439; 84443; 84484; 85025; 85027; 86850; 86900; 86901; 87635; 88305; 88342; 94640; 96374; 99285

== ENCOUNTER → 2020-12-22 | Outpatient (CLI) | payer MEDICARE, BC ==
[2020-12-22 12:09] LABS: Basophils # (A) 0.04 X 10*3/uL (0.00-0.10); Basophils % (A) 0.4 %; Eosinophils # (A) 0.25 X 10*3/uL (0.04-0.35); Eosinophils % (A) 2.8 %; HCT 22.9 % (37.2-46.3); HGB 7.1 g/dL (12.0-15.0); Lymphocytes # (A) 2.11 X 10*3/uL (0.90-5.00); Lymphocytes % (A) 23.5 %; MCH 30.7 pg (27.0-32.0); MCV 99.1 fL (80.0-97.0); Mean Platelet Volume 11.3 fL (9.5-12.2); Monocytes # (A) 0.62 X 10*3/uL (0.20-1.00); Monocytes % (A) 6.9 %; Neutrophils # (A) 5.88 X 10*3/uL (1.80-7.70); Neutrophils % (A) 65.7 %; Platelet Count 373 X 10*3/uL (140-440); RBC 2.31 X 10*6/uL (4.10-5.20); RDW 14.3 % (11.5-14.5); WBC 8.96 X 10*3/uL (4.50-10.00)
== END | disposition home or self-care (01) ==
LOC: LABWHC1 08:41
PROVIDERS: ATTEND Internal Medicine Critical Care Medicine
DX: D64.9 Anemia, unspecified (principal)
CPT/HCPCS: 36415; 85025

== ENCOUNTER → 2020-12-29 | Outpatient (CLI) | payer MEDICARE, BC ==
[2020-12-29 17:31] LABS: Basophils # (A) 0.04 X 10*3/uL (0.00-0.10); Basophils % (A) 0.7 %; Eosinophils # (A) 0.17 X 10*3/uL (0.04-0.35); HCT 29.4 % (37.2-46.3); HGB 8.7 g/dL (12.0-15.0); Lymphocytes # (A) 1.23 X 10*3/uL (0.90-5.00); MCH 29.7 pg (27.0-32.0); MCHC 29.6 g/dL (32.0-37.0); MCV 100.3 fL (80.0-97.0); Mean Platelet Volume 10.5 fL (9.5-12.2); Monocytes # (A) 0.49 X 10*3/uL (0.20-1.00); Monocytes % (A) 8.8 %; Neutrophils # (A) 3.64 X 10*3/uL (1.80-7.70); Neutrophils % (A) 65.1 %; Platelet Count 625 X 10*3/uL (140-440); RBC 2.93 X 10*6/uL (4.10-5.20); RDW 15.4 % (11.5-14.5); WBC 5.59 X 10*3/uL (4.50-10.00)
== END | disposition home or self-care (01) ==
LOC: LABWHC1 09:08
PROVIDERS: ATTEND Internal Medicine Critical Care Medicine
DX: D64.9 Anemia, unspecified (principal); K92.2 Gastrointestinal hemorrhage, unspecified
CPT/HCPCS: 36415; 85025

== ENCOUNTER → 2021-01-12 | Outpatient (CLI) | payer MEDICARE, BC ==
[2021-01-12 11:43] LABS: Basophils # (A) 0.04 X 10*3/uL (0.00-0.10); Eosinophils # (A) 0.11 X 10*3/uL (0.04-0.35); Eosinophils % (A) 2.7 %; HCT 34.4 % (37.2-46.3); HGB 10.6 g/dL (12.0-15.0); Lymphocytes # (A) 1.11 X 10*3/uL (0.90-5.00); MCHC 30.8 g/dL (32.0-37.0); MCV 100.6 fL (80.0-97.0); Monocytes # (A) 0.49 X 10*3/uL (0.20-1.00); Monocytes % (A) 11.9 %; Neutrophils # (A) 2.36 X 10*3/uL (1.80-7.70); Neutrophils % (A) 57.4 %; Platelet Count 403 X 10*3/uL (140-440); RBC 3.42 X 10*6/uL (4.10-5.20); RDW 14.3 % (11.5-14.5); WBC 4.11 X 10*3/uL (4.50-10.00)
== END | disposition home or self-care (01) ==
LOC: LABWHC1 08:21
PROVIDERS: ATTEND Internal Medicine Critical Care Medicine
DX: D64.9 Anemia, unspecified (principal)
CPT/HCPCS: 36415; 85025

== ENCOUNTER → 2021-01-26 | Outpatient (CLI) | payer MEDICARE, BC ==
[2021-01-26 12:05] LABS: Basophils # (A) 0.05 X 10*3/uL (0.00-0.10); Eosinophils % (A) 1.9 %; HCT 35.8 % (37.2-46.3); HGB 11.1 g/dL (12.0-15.0); Lymphocytes # (A) 1.26 X 10*3/uL (0.90-5.00); MCH 30.4 pg (27.0-32.0); MCV 98.1 fL (80.0-97.0); Mean Platelet Volume 11.1 fL (9.5-12.2); Monocytes # (A) 0.47 X 10*3/uL (0.20-1.00); Neutrophils # (A) 3.36 X 10*3/uL (1.80-7.70); Neutrophils % (A) 63.9 %; Platelet Count 437 X 10*3/uL (140-440); RBC 3.65 X 10*6/uL (4.10-5.20); RDW 13.2 % (11.5-14.5); WBC 5.25 X 10*3/uL (4.50-10.00)
== END | disposition home or self-care (01) ==
LOC: LABWHC1 08:31
PROVIDERS: ATTEND Internal Medicine Critical Care Medicine
DX: D50.0 Iron deficiency anemia secondary to blood loss (chronic) (principal)
CPT/HCPCS: 36415; 85025

== ENCOUNTER → 2021-02-09 | Outpatient (CLI) | payer MEDICARE, BC ==
[2021-02-09 11:42] LABS: Basophils # (A) 0.05 X 10*3/uL (0.00-0.10); Basophils % (A) 1.1 %; Eosinophils # (A) 0.12 X 10*3/uL (0.04-0.35); Eosinophils % (A) 2.7 %; HCT 35.4 % (37.2-46.3); HGB 10.9 g/dL (12.0-15.0); Lymphocytes # (A) 1.25 X 10*3/uL (0.90-5.00); Lymphocytes % (A) 27.7 %; MCH 29.9 pg (27.0-32.0); MCHC 30.8 g/dL (32.0-37.0); MCV 97.3 fL (80.0-97.0); Mean Platelet Volume 11.1 fL (9.5-12.2); Monocytes # (A) 0.58 X 10*3/uL (0.20-1.00); Monocytes % (A) 12.9 %; Neutrophils # (A) 2.49 X 10*3/uL (1.80-7.70); Neutrophils % (A) 55.2 %; Platelet Count 373 X 10*3/uL (140-440); RBC 3.64 X 10*6/uL (4.10-5.20); RDW 13.1 % (11.5-14.5); WBC 4.51 X 10*3/uL (4.50-10.00)
== END | disposition home or self-care (01) ==
LOC: LABWHC1 08:08
PROVIDERS: ATTEND Internal Medicine Critical Care Medicine
DX: D50.0 Iron deficiency anemia secondary to blood loss (chronic) (principal)
CPT/HCPCS: 36415; 85025

== ENCOUNTER → 2021-02-23 | Outpatient (CLI) | payer MEDICARE, BC ==
[2021-02-23 12:19] LABS: Basophils # (A) 0.03 X 10*3/uL (0.00-0.10); Basophils % (A) 0.7 %; Eosinophils # (A) 0.11 X 10*3/uL (0.04-0.35); Eosinophils % (A) 2.4 %; HCT 37.1 % (37.2-46.3); HGB 11.7 g/dL (12.0-15.0); Lymphocytes # (A) 1.22 X 10*3/uL (0.90-5.00); Lymphocytes % (A) 27.1 %; MCH 30.4 pg (27.0-32.0); MCHC 31.5 g/dL (32.0-37.0); MCV 96.4 fL (80.0-97.0); Mean Platelet Volume 11.3 fL (9.5-12.2); Monocytes # (A) 0.56 X 10*3/uL (0.20-1.00); Monocytes % (A) 12.4 %; Neutrophils # (A) 2.57 X 10*3/uL (1.80-7.70); Neutrophils % (A) 57.2 %; Platelet Count 395 X 10*3/uL (140-440); RBC 3.85 X 10*6/uL (4.10-5.20)
== END | disposition home or self-care (01) ==
LOC: LABWHC1 08:15
PROVIDERS: ATTEND Internal Medicine Critical Care Medicine
DX: D50.0 Iron deficiency anemia secondary to blood loss (chronic) (principal)
CPT/HCPCS: 36415; 85025

== ENCOUNTER 2021-03-01 11:32 | Day surgery (SDC) | payer MEDICARE, BC ==
[2021-02-28 10:22] VITALS: BMI 26.2
[~2021-03-01 11:32] MED LIST changes: -ACETAMINOPHEN TAB 500 MG TAB PO ONE; -DEXAMETHASONE SOD PHOSPHATE 10 MG/ML 1 ML VIAL IV ONE; -GABAPENTIN 300 MG CAP PO ONE; +LACTATED RINGERS 1,000 ML IV SCH; -LIDOCAINE 1% 20 ML VIAL (10MG/ML) FOR IV START INTRADERMA PRN; -MELOXICAM 7.5 MG TAB PO ONE; -MIDAZOLAM 2 MG/2 ML VIAL IV PRN; -ONDANSETRON 4 MG/2 ML VIAL IVP ONE; -ROPIVACAINE 246.25 MG, EPINEPHrine 0.5 MG, KETOROLAC 30 MG, cloNIDine HCL/PF 80 MCG, WA... MISCELLANE ONE; -TRANEXAMIC ACID 1,000 MG in SODIUM CHLORIDE 0.9% 100 ML IVPB ONE; -fentaNYL (PF) 50 MCG/ML 2 ML AMP IV PRN
[2021-03-01 12:06] VITALS: RESP 16; TEMP 98.9
[2021-03-01] MEDS ORDERED: LIDOCAINE 1% (10MG/ML) FOR IV START INTRADERMA ONE (12:06)
[2021-03-01] MEDS ORDERED: LIDOCAINE 1% INJ 10MG/ML (20 ML MDV) ONE (12:59)
[2021-03-01] MEDS ORDERED: PROPOFOL 10 MG/ML 20 ML VIAL IV ONE (12:59)
--- NOTE | 2021-03-01 13:25 | P.PCN ---
Date of Procedure: 03/01/21 Procedure(s) Performed: Brief history: Patient is a pleasant scheduled f 75-year-old white femaleor an elective upper endoscopy as well as colonoscopy as a part of follow-up of gastric ulcer noted on upper endoscopy in December 2020 when she presented with acute upper GI bleed. She is also scheduled for a screening colonoscopy today. Procedure performed: Esophagogastroduodenoscopy Colonoscopy with snare polypectomy Preoperative diagnosis: Follow-up gastric ulcer Screening for colon cancer Anesthesia: MAC Procedure: After informed consent was obtained from the patient was brought into the endoscopy unit and IV sedation was administered by anesthesia under continuous monitoring. Initially upper endoscopy was done. The Olympus GF 160 video endoscope was inserted inserted into the mouth and esophagus intubated without any difficulty and was gradually advanced into the stomach and duodenum and carefully examined. The bulb and second part of the duodenum appeared normal. The scope was then withdrawn into the stomach adequately insufflated with air and upon careful examination the antrum and body, cardia and fundus appeared normal. previously noted antral ulcers have completely healed. The scope was then withdrawn into the esophagus. The GE junction was located at 40 cm to the incisors. It appeared regular with no erythema erosions or ulcerations.small hiatal hernia noted. Rest of the esophagus appeared normal. Patient tolerated the procedure well. At this time the patient continued to remain sedation. Initial digital rectal examination was normal. Olympus CF 160 video colonoscope was then inserted into the rectum and gradually advanced to the cecum without any difficulty. Careful examination was performed as the scope was gradually being withdrawn. The prep was excellent. The cecum, ascending colon, transverse colon, descending colon, appeared normal. In the sigmoid colon there was a 1 cm polyp removed by snare polypectomy. sigmoid colon and rectum appeared normal. Retroflexion was performed in the rectum and no lesions were noted. Patient tolerated the procedure well. Impression: 1. Upper endoscopy revealed healing gastric ulcer and small hiatal hernia 2. Colonoscopy revealed 1 cm; polyp status post polypectomy Recommendations: Findings of this examination were discussed with the patient as well her family. She was advised to follow with the biopsy results. If the biopsy reveals adenoma she can have a repeat colonoscopy in 3-5 years
[2021-03-01 13:40] VITALS: BP 150/74; PULSE 60
== END 2021-03-01 13:57 | disposition home or self-care (01) ==
LOC: ORWHC2ENDO 11:32
PROVIDERS: ATTEND Internal Medicine Gastroenterology
DX: K25.4 Chronic or unspecified gastric ulcer with hemorrhage (principal); K44.9 Diaphragmatic hernia without obstruction or gangrene; D12.5 Benign neoplasm of sigmoid colon; I25.10 Atherosclerotic heart disease of native coronary artery without angina pectoris; I49.9 Cardiac arrhythmia, unspecified; I10 Essential (primary) hypertension; E78.5 Hyperlipidemia, unspecified; I48.91 Unspecified atrial fibrillation; E07.9 Disorder of thyroid, unspecified; K21.9 Gastro-esophageal reflux disease without esophagitis; Z79.890 Hormone replacement therapy; Z79.899 Other long term (current) drug therapy
CPT/HCPCS: 45385; 43235; 88305; J2001; J2704

== ENCOUNTER → 2021-03-09 | Outpatient (CLI) | payer MEDICARE, BC ==
[2021-03-09 17:27] LABS: Basophils # (A) 0.05 X 10*3/uL (0.00-0.10); Basophils % (A) 0.9 %; Eosinophils # (A) 0.14 X 10*3/uL (0.04-0.35); Eosinophils % (A) 2.4 %; HCT 38.1 % (37.2-46.3); HGB 11.7 g/dL (12.0-15.0); Lymphocytes # (A) 1.46 X 10*3/uL (0.90-5.00); Lymphocytes % (A) 25.2 %; MCHC 30.7 g/dL (32.0-37.0); MCV 94.5 fL (80.0-97.0); Mean Platelet Volume 11.4 fL (9.5-12.2); Monocytes # (A) 0.65 X 10*3/uL (0.20-1.00); Monocytes % (A) 11.2 %; Neutrophils # (A) 3.48 X 10*3/uL (1.80-7.70); Platelet Count 394 X 10*3/uL (140-440); RBC 4.03 X 10*6/uL (4.10-5.20); RDW 12.7 % (11.5-14.5)
== END | disposition home or self-care (01) ==
LOC: LABWHC1 09:13
PROVIDERS: ATTEND Internal Medicine Critical Care Medicine
DX: D62 Acute posthemorrhagic anemia (principal)
CPT/HCPCS: 36415; 85025

== ENCOUNTER → 2021-03-23 | Outpatient (CLI) | payer MEDICARE, BC ==
[2021-03-23 11:05] LABS: Basophils # (A) 0.05 X 10*3/uL (0.00-0.10); Basophils % (A) 0.8 %; Eosinophils # (A) 0.22 X 10*3/uL (0.04-0.35); Eosinophils % (A) 3.5 %; HCT 38.8 % (37.2-46.3); HGB 12.2 g/dL (12.0-15.0); Lymphocytes # (A) 1.42 X 10*3/uL (0.90-5.00); Lymphocytes % (A) 22.7 %; MCH 28.8 pg (27.0-32.0); MCHC 31.4 g/dL (32.0-37.0); MCV 91.7 fL (80.0-97.0); Mean Platelet Volume 10.4 fL (9.5-12.2); Monocytes # (A) 0.73 X 10*3/uL (0.20-1.00); Monocytes % (A) 11.7 %; Neutrophils # (A) 3.83 X 10*3/uL (1.80-7.70); Neutrophils % (A) 61.1 %; Platelet Count 388 X 10*3/uL (140-440); RBC 4.23 X 10*6/uL (4.10-5.20); WBC 6.26 X 10*3/uL (4.50-10.00)
== END | disposition home or self-care (01) ==
LOC: LABWHC1 08:16
PROVIDERS: ATTEND Internal Medicine Critical Care Medicine
DX: D50.0 Iron deficiency anemia secondary to blood loss (chronic) (principal)
CPT/HCPCS: 36415; 85025

== ENCOUNTER → 2021-04-29 | Outpatient (CLI) | payer MEDICARE, BC ==
[2021-04-29 14:57] LABS: Basophils # (A) 0.04 X 10*3/uL (0.00-0.10); Basophils % (A) 0.7 %; Eosinophils # (A) 0.08 X 10*3/uL (0.04-0.35); Eosinophils % (A) 1.4 %; HCT 40.2 % (37.2-46.3); HGB 12.6 g/dL (12.0-15.0); Lymphocytes % (A) 30.4 %; MCHC 31.3 g/dL (32.0-37.0); MCV 92.6 fL (80.0-97.0); Mean Platelet Volume 10.9 fL (9.5-12.2); Monocytes # (A) 0.67 X 10*3/uL (0.20-1.00); Monocytes % (A) 11.3 %; Neutrophils # (A) 3.31 X 10*3/uL (1.80-7.70); Neutrophils % (A) 55.9 %; Platelet Count 395 X 10*3/uL (140-440); RBC 4.34 X 10*6/uL (4.10-5.20); RDW 13.5 % (11.5-14.5); WBC 5.92 X 10*3/uL (4.50-10.00)
== END | disposition home or self-care (01) ==
LOC: LABWHC1 08:06
PROVIDERS: ATTEND Internal Medicine Critical Care Medicine
DX: D64.9 Anemia, unspecified (principal)
CPT/HCPCS: 36415; 85025

== ENCOUNTER → 2021-07-26 | Outpatient (CLI) | payer MEDICARE, BC ==
--- NOTE | 2021-07-26 13:35 | MM ---
Reason for exam: additional evaluation requested from prior study. Last mammogram was performed 1 year and 2 months ago. History: Patient is postmenopausal and has history of breast cancer at age 33. Family history of breast cancer in maternal aunt, breast cancer in maternal cousin at age 55, and premenopausal breast cancer in mother at age 45. Benign excisional biopsy of the right breast, December 2008. Cancelled Right Mammotome of the right breast, December 13, 2008. Mastectomy of the left breast, 1978. Took hormonal contraceptives for 2 years beginning at age 21. Took progesterone for 4 years beginning at age 55. Physical Findings: Nurse did not find any significant physical abnormalities on exam. MG 3D Diag Mammo W/Cad RT CC and MLO view(s) were taken of the right breast. Prior study comparison: May 18, 2020, right breast MG 3d diag mammo w/cad RT. October 06, 2018, right breast MG 3d diag mammo w/cad RT. There are scattered fibroglandular densities. No significant new findings when compared with previous films. These results were verbally communicated with the patient and result sheet given to the patient on 07/26/21. ASSESSMENT: Benign, BI-RAD 2 RECOMMENDATION: Follow-up diagnostic mammogram of the right breast in 1 year.
== END | disposition home or self-care (01) ==
LOC: RADMAMWWP 12:52
PROVIDERS: ATTEND Internal Medicine Critical Care Medicine
DX: R92.8 Other abnormal and inconclusive findings on diagnostic imaging of breast (principal); Z78.0 Asymptomatic menopausal state; Z85.3 Personal history of malignant neoplasm of breast; Z80.3 Family history of malignant neoplasm of breast
CPT/HCPCS: 77065; G0279; 77061

== ENCOUNTER 2021-10-21 05:39 | Day surgery (SDC) | payer MEDICARE, BC ==
[2021-10-16 15:03] VITALS: BMI 26.2
[~2021-10-21 05:39] MED LIST changes: +ACETAMINOPHEN TAB 500 MG TAB PO PRN; +GABAPENTIN 300 MG CAP PO PRN; -LACTATED RINGERS 1,000 ML IV SCH; +MELOXICAM 7.5 MG TAB PO PRN; +TRANEXAMIC ACID IN NACL,ISO-OS 1,000 MG in SALINE 1 100ML.BAG IVPB PRN
[2021-10-21] MEDS ORDERED: ONDANSETRON 4 MG/2 ML VIAL ONE ×2 (06:18→06:56)
[2021-10-21] MEDS ORDERED: MIDAZOLAM 2 MG/2 ML VIAL ONE ×2 (06:56)
[2021-10-21] MEDS ORDERED: ceFAZolin 1,000 MG VIAL ONE (06:56)
[2021-10-21] MEDS ORDERED: fentaNYL (PF) 50 MCG/ML 2 ML AMP ONE (06:56)
[2021-10-21] MEDS ORDERED: PROPOFOL 10 MG/ML 20 ML VIAL IV ONE (06:56)
[2021-10-21] MEDS ORDERED: GLYCOPYRROLATE 0.2 MG/ML 2 ML VIAL ONE (06:56)
[2021-10-21] MEDS ORDERED: DEXAMETHASONE SOD PHOSPHATE 4 MG/ML 1 ML VIAL ONE (06:56)
[2021-10-21] MEDS ORDERED: SUCCINYLCHOLINE CHLORIDE 100 MG/5 ML SYR IV ONE (06:56)
[2021-10-21] MEDS ORDERED: LACTATED RINGERS 1,000 ML BAG IV ONE (06:56)
[2021-10-21] MEDS ORDERED: SODIUM CHLORIDE 0.9% 100 ML BAG ONE (06:56)
[2021-10-21] MEDS ORDERED: TRANEXAMIC ACID IN NACL,ISO-OS 1,000 MG/100 ML BAG ONE (06:56)
[2021-10-21] MEDS ORDERED: ACETAMINOPHEN IV (For NPO) 1,000 MG/100 ML VIAL ONE (06:56)
[2021-10-21] MEDS ORDERED: LIDOCAINE 2% INJ 20 MG/ML (2 ML VIAL) ONE (06:56)
[2021-10-21] MEDS ORDERED: LACTATED RINGERS 1,000 ML IV ONE ×2 (08:40→08:50)
[2021-10-21] MEDS ORDERED: ROPIVACAINE 0.2%-NS ON-Q PUMP 2 MG/ML EACH MISCELLANE ONE (08:57)
[2021-10-21] MEDS ORDERED: HYDROmorphone 0.5 MG/0.5 ML SYRINGE IVP ONE ×2 (09:12→09:29)
[2021-10-21] MEDS ORDERED: ROPIVACAINE 0.2%-NS ON-Q PUMP 1,090 MG, EMPTY PAIN BALL 1 EACH MISCELLANE PRN (11:38)
--- NOTE | 2021-10-21 11:40 | P.ANPRN ---
Procedure Note - Anesthesia - Nerve Block Performed Right Adductor Canal Infusion Time Out Performed: Yes Date of Procedure: 10/21/21 Procedure Start Time: :34 Procedure Stop Time: 06:44 Location of Patient: PreOp Indication: Requested by Surgeon Specifically requested for management of pain by DrJules: Kaden Jerez Sedation Type: Sedate with meaningful contact maintained Preparation: Sterile Prep, Sterile Dressing Position: Supine Catheter: Indwelling Needle Types: Pajunk Needle Gauge: 18 Ultrasound used to visualize needle placement: Yes Ultrasound used to observe medication spread: Yes Injectate: 0.5% Ropivacaine (see comment for volume) (15 ml + 15 ml 0.9 % NS) Blood Aspirated: No Pain Paresthesia on Injection Noted: No Resistance on Injection: Normal Image Stored and Saved: Yes Events: Uneventful and Well Tolerated
--- NOTE | 2021-10-21 11:42 | P.ANPRN ---
Procedure Note - Anesthesia - Nerve Block Performed Right iPack Single Time Out Performed: Yes Date of Procedure: 10/21/21 Procedure Start Time: 06:45 Procedure Stop Time: 06:52 Location of Patient: PreOp Indication: Requested by Surgeon Specifically requested for management of pain by DrJules: Kaden Jerez Sedation Type: Sedate with meaningful contact maintained Preparation: Sterile Prep Position: Left Lateral Needle Types: Pajunk Needle Gauge: 21 Ultrasound used to visualize needle placement: Yes Ultrasound used to observe medication spread: Yes Injectate: 0.5% Ropivacaine (see comment for volume) (15 ml + 10 ml NS + 4 ng Dexamethasone) Blood Aspirated: No Pain Paresthesia on Injection Noted: No Resistance on Injection: Normal Image Stored and Saved: Yes Events: Uneventful and Well Tolerated
[2021-10-21] MEDS ORDERED: MAGNESIUM HYDROXIDE 2,400 MG/10 ML CUP PO PRN (11:45)
[2021-10-21] MEDS ORDERED: HYDROmorphone 0.2 MG/1 ML SYRINGE IVP PRN (11:45)
[2021-10-21] MEDS ORDERED: ONDANSETRON 4 MG/2 ML VIAL IVP PRN (11:45)
[2021-10-21] MEDS ORDERED: SODIUM CHLORIDE 0.9% 1,000 ML IV SCH (11:45)
[2021-10-21] MEDS ORDERED: NALOXONE 0.4 MG/ML 1 ML VIAL IV PRN (11:45)
[2021-10-21] MEDS ORDERED: HYDROmorphone 0.5 MG/0.5 ML SYRINGE IVP PRN ×3 (11:45→15:17)
[2021-10-21] MEDS ORDERED: bisacodyL 10 MG SUPP RECTAL PRN (11:45)
[2021-10-21] MEDS ORDERED: NA PHOS,M-B/NA PHOS,DI-BA 133 ML ENEMA RECTAL PRN (11:45)
[2021-10-21] MEDS ORDERED: HYDROcodone/APAP 7.5-325MG 1 EACH TAB PO PRN ×2 (11:48)
--- NOTE | 2021-10-21 14:08 | XR ---
EXAMINATION TYPE: XR knee limited RT DATE OF EXAM: 10/21/2021 COMPARISON: None HISTORY: Postop knee replacement TECHNIQUE: 2 view FINDINGS: Tibial and femoral components in place. No acute fractures are evident. Postsurgical soft t issue changes are evident. Follow up exams can be performed 7-10 days from acute trauma for continued pain. IMPRESSION: 1. No acute osseous abnormality post right knee replacement
[2021-10-21] MEDS ORDERED: HYDROcodone/APAP 7.5-325MG 1 EACH TAB ONE (14:24)
[2021-10-21] MEDS ORDERED: HYDROcodone/APAP 7.5-325MG 1 EACH TAB PO ONE (14:26)
[2021-10-21 14:33] VITALS: RESP 20
[2021-10-21] MEDS ORDERED: ceFAZolin 1,000 MG VIAL IVPB ONE (14:52)
[2021-10-21] MEDS ORDERED: LACTATED RINGERS 1,000 ML IV SCH (15:17)
[2021-10-21] MEDS ORDERED: DEXAMETHASONE SOD PHOSPHATE 4 MG/ML 1 ML VIAL IV ONE (15:17)
[2021-10-21] MEDS ORDERED: ONDANSETRON 4 MG/2 ML VIAL IVP ONE (15:17)
[2021-10-21] MEDS ORDERED: MIDAZOLAM 2 MG/2 ML VIAL IV PRN (15:17)
[2021-10-21] MEDS ORDERED: LIDOCAINE 1% (10MG/ML) FOR IV START INTRADERMA PRN (15:17)
[2021-10-21 16:25] VITALS: BP 116/61; PULSE 59
[2021-10-21] MEDS ORDERED: SENNOSIDES-DOCUSATE SODIUM 1 EACH TAB PO SCH (21:00)
[2021-10-21] MEDS ORDERED: ASPIRIN 81 MG PO SCH (21:00)
--- NOTE | 2021-10-22 07:03 | P.OP ---
Date of Procedure: 10/21/21 Preoperative Diagnosis: Severe osteoarthritis right knee Postoperative Diagnosis: Severe osteoarthritis right knee Procedure(s) Performed: Right total knee arthroplasty utilizing ON[employer]aire patient specific guides Implants: Fox & Nephew Journey II CR Oxinium cruciate retaining femoral component size 4, right Fox & Nephew Journey nonporous tibial baseplate size 2, right Fox & Nephew Journey II, XLPE Deep Dished articular insert, size 10 mm, Size 1-2, right Fox [employer] Nephew Journey Brittany II resurfacing patellar component, oval, 29 mm All components were cemented using Palacos R bone cement The articulation is Oxinium on polyethylene Visionaire patient specific guides Anesthesia: GETA Surgeon: Kaden Jerez Electrical Controls Technician #1: Britni Altamirano Electrical Controls Technician #2: Lucy Martinez Estimated Blood Loss (ml): 30 Pathology: other (Bone and cartilage) Condition: stable Disposition: PACU Indications for Procedure: After failure of conservative treatment we discussed the surgical and nonsurgical treatment options at length. Patient wishes to proceed with a total knee arthroplasty. Complications specific to this procedure were discussed at length, including but not limited to infection, bleeding, stiffness, and nerve injury. Covid-19 was also discussed at length with the patient, and they are aware of the current policies and procedures. The patient was given the option of delaying surgery, but they elect to proceed knowing these risks. Patient is aware of all these complications and informed consent was obtained Operative Findings: The operative findings are consistent with severe osteoarthritis of the right knee Description of Procedure: Patient was seen in the preoperative area and the consent was reviewed and the operative site was marked with a skin marker. The patient verified the procedure and the operative site. An adductor canal pain catheter and and iPACK block was placed by anesthesia in the preoperative area. The patient was then brought to the operating room and given preoperative antibiotics intravenously. A gram of transexamic acid was given intravenously. A general anesthetic was administered by the anesthesia department. A tourniquet was placed on the upper thigh and the lower extremity was prepped with chlorhexidine and draped in usual sterile fashion. A universal timeout was then performed which confirmed the patient's name, surgical site, ALLERGIES, and consent. The lower extremity was then exsanguinated and tourniquet was inflated to 250 mmHg. A standard anterior midline approach to the knee was performed. The skin and subcutaneous tissue were sharply dissected down to the patellar tendon. A medial parapatellar arthrotomy was then performed. The knee was then extended, the patellar was everted, and the knee was again flexed. The infra-patellar fat pad was removed in order to enhance exposure. The anterior horns of both menisci were excised, and a release was performed to the posterior medial aspect of the knee. On gross visual inspection, there was complete loss of articular cartilage in the medial and patellofemoral joint spaces. There was also significant cartilage damage in the lateral compartment. There were multiple periarticular osteophytes globally about the knee. The patient specific guide was placed on the distal femur, and pinned in place. Using the patient specific guide, the distal femoral cut was performed. The cutting block was then removed and the cut was checked for symmetry. The spikes of the femoral block was then placed into the predrilled holes, and malleted into place. Two 45 mm pins were then placed into the fixation holes on the cutting block. An lenny wing was then used to ensure there would be no notching with the anterior cut. The anterior condyles were cut without notching. The anterior chord cut was then performed, followed by the posterior cut, posterior chamfer cut, and the anterior chamfer cut. The collateral ligaments were protected during the entire process. The cutting block was then removed. Any remaining bone and osteophytes were removed from the femur with a Ronguer. The femoral canal was plugged with autologous bone. Attention was then directed to the tibia. The remaining ACL was removed with a Ronguer, and the tibia was then gently subluxed forward with a large bent knee retractor. Any remaining menisci were excised. The posterior lateral corner was cauterized in order to coagulate the lateral geniculate artery. The patient specific guide for the tibia was then placed and was held in place with pins. Pinholes were then placed for rotation of the tibial component as well. Proximal tibia was then cut and sized. The femoral trial was placed. A narrow saw blade was then used to remove the anterior intracondylar femoral bone. The CR notch trial was then placed. The tibial trial was placed with the appropriate-sized insert. The knee was able to fully extend and flex to 130 and was stable throughout all range of motion. The knee was then extended and the patella was everted. Patella was then measured, and then using an osteotomy guide, the patella was cut at the appropriate level. The patella was then measured and drilled and the patella trial was then placed. The knee was then taken through range of motion with the patella trial and the patella tracked normally using the no thumbs technique.. The knee was then extended patella trial was then removed and the patella was everted. Knee was then flexed and lug holes were drilled through the femoral trial and the femoral trial was then removed. The tibial was then re-exposed, and the tibial broach guide was then pinned in place after it was set for the appropriate rotation to allow for the most coverage without overhang. The tibia was then reamed and broached. The cut surfaces of bone were then irrigated with pulsatile lavage. The knee was also irrigated with Irrisept solution. The components were then opened, the cement was mixed, and the components were then cemented in place. The cement was allowed to harden with the knee in full extension. . After the cemented hardened. The tourniquet was released, and hemostasis was obtained. A second gram of transexamic acid was given intravenously. The knee was again irrigated. The knee was again taken through range of motion and found to be stable throughout all range of motion of 0-130, and the patella tracked normally. The fascia was then closed with 0 Vicryl followed by #2 strata fix suture. The subcutaneous tissue was closed with 3-0 Vicryl and 3-0 strata fix. Exofin glue was used for the skin and placed with the knee in flexion. After the glue had dried, and Optafoam silver impregnated dressing was applied. The patient was then transferred to recovery room in stable condition. The assistants PILAR Gallo and PILAR Gtz were required due the complexity surgery and the need for a skilled payroll administrative assistant. She assisted in positioning, draping, retraction, and closure of the wound.
== END 2021-10-21 16:55 | disposition home health service (06) ==
LOC: OR 05:39
PROVIDERS: ATTEND Orthopaedic Surgery
DX: M17.11 Unilateral primary osteoarthritis, right knee (principal); I10 Essential (primary) hypertension; E78.5 Hyperlipidemia, unspecified; E03.9 Hypothyroidism, unspecified; K25.9 Gastric ulcer, unspecified as acute or chronic, without hemorrhage or perforation; J98.4 Other disorders of lung; F41.9 Anxiety disorder, unspecified; R45.0 Nervousness; J45.909 Unspecified asthma, uncomplicated; D69.3 Immune thrombocytopenic purpura; D64.9 Anemia, unspecified; H81.10 Benign paroxysmal vertigo, unspecified ear; E78.00 Pure hypercholesterolemia, unspecified; K21.9 Gastro-esophageal reflux disease without esophagitis; Z86.16 Personal history of COVID-19; Z85.3 Personal history of malignant neoplasm of breast; Z96.652 Presence of left artificial knee joint; Z79.890 Hormone replacement therapy; Z79.899 Other long term (current) drug therapy; Z79.51 Long term (current) use of inhaled steroids; Z88.8 Allergy status to other drugs, medicaments and biological substances; Z90.710 Acquired absence of both cervix and uterus; Z90.10 Acquired absence of unspecified breast and nipple; Z90.81 Acquired absence of spleen; Z97.3 Presence of spectacles and contact lenses; Z82.49 Family history of ischemic heart disease and other diseases of the circulatory system
CPT/HCPCS: 97110; 97161; 64999; 64448; 76942; 88300; 73560; 27447; C1776; J2250; J1100; J2405; J0690; J3010; J0131; J0330; J2704; J1170; J2795; J2001

== ENCOUNTER → 2022-04-11 | Outpatient (CLI) | payer MEDICARE, BC ==
[2022-04-11 15:23] LABS: Basophils # (A) 0.06 X 10*3/uL (0.00-0.10); Basophils % (A) 1.2 %; Eosinophils # (A) 0.26 X 10*3/uL (0.04-0.35); Eosinophils % (A) 5.1 %; HCT 37.7 % (37.2-46.3); HGB 12.2 g/dL (12.0-15.0); Immature Grans, Automated 0.4 %; Lymphocytes % (A) 21.7 %; MCH 29.3 pg (27.0-32.0); MCHC 32.4 g/dL (32.0-37.0); MCV 90.4 fL (80.0-97.0); Mean Platelet Volume 10.8 fL (9.5-12.2); Monocytes # (A) 0.56 X 10*3/uL (0.20-1.00); NRBC Per 100 WBC 0 /100 WBCS (0.0-0.0); Neutrophils # (A) 3.07 X 10*3/uL (1.80-7.70); Neutrophils % (A) 60.6 %; Platelet Count 469 X 10*3/uL (140-440); RBC 4.17 X 10*6/uL (4.10-5.20); WBC 5.07 X 10*3/uL (4.50-10.00)
[2022-04-11 16:24] LABS: ALT 28 U/L (8-44); AST 26 U/L (13-35); African American GFR (CKD) 69.8 (60.0-200.0); Albumin 4.5 g/dL (3.8-4.9); Albumin/Globulin Ratio 1.35 (1.60-3.17); Alkaline Phosphatase 100 U/L (41-126); BUN/Creat Ratio 22.39 Ratio (12.00-20.00); Blood Urea Nitrogen 20.8 mg/dL (9.0-27.0); Calcium 10.2 mg/dL (8.7-10.3); Carbon Dioxide 25.4 mmol/L (20.0-27.5); Chloride 101 mmol/L (96-109); Globulin 3.3 g/dL (1.6-3.3); Glucose 95 mg/dL (70-110); LDL Cholesterol,Calculated 164.8 mg/dL (0.0-131.0); Non-African American GFR(CKD) 60.2 (60.0-200.0); Potassium 4.5 mmol/L (3.5-5.5); Sodium 137 mmol/L (135-145); Total Protein 7.9 g/dL (6.2-8.2)
[2022-04-11 16:28] LABS: Appearance,Urine Clear (Clear); Bilirubin,Urine Negative (Negative); Blood,Urine Negative (Negative); Color,Urine Yellow (Yellow); Ketones,Urine Negative (Negative); Nitrite,Urine Negative (Negative); PH, Urine 5.5 (5.0-8.0); Specific Gravity,Urine 1.017 (1.001-1.030); Urobilinogen,Urine 0.2 (0.2,1.0)
[2022-04-11 16:36] LABS: Bacteria,Urine None Seen /HPF (None Seen)
== END | disposition home or self-care (01) ==
LOC: LABWHC1 09:07
PROVIDERS: ATTEND Internal Medicine Critical Care Medicine
DX: I10 Essential (primary) hypertension (principal); J45.909 Unspecified asthma, uncomplicated; K92.2 Gastrointestinal hemorrhage, unspecified; E78.00 Pure hypercholesterolemia, unspecified; Z90.81 Acquired absence of spleen; E03.9 Hypothyroidism, unspecified; R10.32 Left lower quadrant pain
CPT/HCPCS: 36415; 80053; 80061; 81001; 82306; 83036; 84439; 84443; 85025; 87086

== ENCOUNTER → 2022-05-01 | Outpatient (CLI) | payer MEDICARE, BC ==
[2022-05-01 08:11] VITALS: BP 142/88; PULSE 73; RESP 18; TEMP 98.2
--- NOTE | 2022-05-01 08:13 | P.PAINPG ---
PQRS Measure Charge Sheet Comment: HISTORY OF PRESENT ILLNESS: 76 yr old female w at side as a referral from Dr Mason presents today w severe and chronic LBP secondary to DDD, spondylosis and facet arthropathy without myelopathy for evaluation. Pt states her pain level is currently at 4/10 in intensity, constant, localized in the mid to lower aspect of the lumbar spine, burning in character w radiation of shooting pain towards the BL glutes, BL knees and BL feet. Pain is provoked as high as 8/10 in intensity by standing/ walking for periods of 15 min or more, bending/ twisting/ lifting. Pain is alleviated by medication (Mobic, Tylenol arthritis, Aleve OTC), heat, PT in October 2021 for her knees, laying supine, repositioning and rest. PMH: OA, Atrial Fibrillation, Asthma, L Breast CA (46 yrs ago), Hyperlipidemia, HTN, Thyroid Disorder PSH: R Knee Arthroplasty (09/2021), L Breast Masectomy Surgery, Cardiac Ablation, Hysterectomy, L Knee Arthroscopy, Splenectomy, TLK SH: Negative x3 FH: Non contributory All: See list Meds: See list REVIEW OF ORGAN SYSTEMS: CONSTITUTIONAL: No fevers or chills. No recent weight loss. NEUROLOGICAL: + numbness and tingling along the distal extremities. No seizure disorders or headaches. MUSCULOSKELETAL: + pain PSYCHIATRIC: Denies current depression or suicidal thoughts. Physical Examinations : Constitutional : Cooperative , not in acute distress . Neurologic : Cranial nerve II to XII intact. No focal neurological deficits. Psychiatric : alert & oriented x 3. Matching mood & appropriate affect. Judgment & insight intact. Musculoskeletal : Cervical Spine Motor strength in the deltoid and biceps: Normal right side. Normal Left side Motor strength biceps and the wrist extensors: Normal right side . Normal left side Motor strength in the triceps muscle: Normal right side. Normal left side Deep tendon reflexes: Normal at the biceps. Normal at Brachioradialis. Normal at triceps Vertebral body tenderness to deep palpation over Cervical facet loading test: positive bilaterally Spurling test: positive bilaterally Neck distraction test: positive bilaterally Anila sign: positive bilaterally Lumbar spine Motor strength lower extremities ,thigh and legs 5/5 Right side , 5/5 Left side Deep tendon reflexes : Normal Knee Jerk. Normal Ankle Jerk Vertebral body tenderness over L5 Lumbar facet Loading Test: positive Right / positive Left Range of motion of the lumbar spine Flexion 30 degrees, extension 10 degrees Straight Leg Raise test: Left/ Right positive at degree Francisco test: positive right / positive left. Severe tenderness over the Sacroiliac joint on the Right / Left sides Gaenslen test: positive bilaterally Seated flexion test: positive bilatera lly. Sacral spine : Severe tenderness over the Sacroiliac joint: right side / left side Range of motion: Flexion of the lumbar spine <60 degrees Range of motion: Extension of the lumbar spine <20 degrees Gaenslen's Test positive Roshan's Test positive Francisco test: positive right side / left side Thigh Thrust Test Sacral Thrust Test Imaging: MRI without contrast of the lumbar spine from 03/24/22 reviewed Assessment/ Plan : Lumbar DDD, lumbar disc herniation, lumbar spondylosis Recommendation of ANGELIQUE L5-S1. May need a series of injections, up to 3 within a six-month time period, for optimal pain relief. Risks, benefits of procedure discussed and patient verbalized understanding. Denies aspirin or anti- coagulant use or medical history of diabetes. Protocol for discontinuation/ continuation of medications ryan procedure discussed. All questions answered. I have spent greater than 30 minutes on patient care today. Dr Patel was available by phone for the evaluation of this patient. The time was used to review the medical records including relevant urine studies and Prescription history (MAPs), review of the available imaging, evaluation and examination of the patient, coordination of care with the medical staff and if applicable referring physicians, as well as creation of the medical record - Pain Location Lower Back Non-Pharmacological Interventions: Heat, Position/Reposition, Stretching Pharmacological Interventions: Medication, PRN Medication, Topical Medication PQRS Narrative: Smoking Status Never smoker Home Medications: Ambulatory Orders ALPRAZolam [Xanax] 0.5 mg PO BID PRN 06/23/17 Budesonide/Formoterol Fumarate [Symbicort 160-4.5 Mcg Inhaler] 2 puff INHALATION BID 06/23/17 Calcium Carbonate [Calcium] 1,200 mg PO DAILY 06/23/17 Levothyroxine Sodium [Synthroid] 50 mcg PO DAILY 06/23/17 Losartan [Cozaar] 50 mg PO DAILY 06/23/17 Montelukast [Singulair] 10 mg PO HS 06/23/17 C,E,Zinc,Copper 11/Jszyj2k/Lut [Ocuvite Adult 50 Plus Softgel] 1 each PO DAILY 08/09/19 Sertraline HCl [Zoloft] 100 mg PO DAILY 08/09/19 Donepezil HCl [Aricept] 5 mg PO HS 12/17/20 gemfibroziL [Lopid] 600 mg PO BID 12/17/20 Pantoprazole Sodium [Protonix] 40 mg PO HS 02/28/21 Aspirin [Adult Low Dose Aspirin EC] 81 mg PO BID 30 Days #60 tab 10/21/21 HYDROcodone/APAP 7.5-325MG [Carlisle 7.5-325] 1 - 2 tab PO Q6H PRN #32 tab 10/21/21 Ondansetron Odt [Zofran Odt] 1 tab PO Q8HR PRN #10 tab 10/21/21 Sennosides [Senokot] 2 tab PO DAILY PRN #60 tablet 10/21/21 Controlled Substance Measures - Controlled Substance Measures Is patient prescribed a controlled substance at discharge?: No
== END | disposition home or self-care (01) ==
LOC: PNWHC3 07:37
PROVIDERS: ATTEND Specialist
DX: M47.896 Other spondylosis, lumbar region (principal); M51.36 Other intervertebral disc degeneration, lumbar region; M51.26 Other intervertebral disc displacement, lumbar region
CPT/HCPCS: 99211

== ENCOUNTER 2022-06-03 07:37 | Day surgery (SDC) | payer MEDICARE, BC ==
[2022-05-30 12:31] VITALS: BMI 26.4
[~2022-06-03 07:37] MED LIST changes: -ACETAMINOPHEN TAB 500 MG TAB PO PRN; -GABAPENTIN 300 MG CAP PO PRN; +LACTATED RINGERS 1,000 ML IV SCH; -MELOXICAM 7.5 MG TAB PO PRN; -TRANEXAMIC ACID IN NACL,ISO-OS 1,000 MG in SALINE 1 100ML.BAG IVPB PRN
[2022-06-03 07:58] VITALS: RESP 16; TEMP 97.7
[2022-06-03] MEDS ORDERED: LIDOCAINE 1% (10MG/ML) FOR IV START INTRADERMA ONE (08:07)
[2022-06-03] MEDS ORDERED: MIDAZOLAM 2 MG/2 ML VIAL ONE (08:14)
[2022-06-03] MEDS ORDERED: IOPAMIDOL M200 10 ML VIAL ONE (08:14)
[2022-06-03] MEDS ORDERED: methylPREDNISolone ACETATE 40 MG/ML 1 ML VIAL ONE (08:14)
[2022-06-03] MEDS ORDERED: fentaNYL (PF) 50 MCG/ML 2 ML AMP ONE (08:14)
--- NOTE | 2022-06-03 08:22 | P.PCN ---
Date of Procedure: 06/03/22 Description of Procedure: PREOPERATIVE DIAGNOSIS: lumbar radiculopathy POSTOPERATIVE DIAGNOSIS: Lumbar radiculopathy PROCEDURE 1. Lumbar epidural steroid injection under fluoroscopic guidance at the L5-S1 level. 2. Lumbar epidurogram. Imaging: Fluoroscopy was used, images where saved to the medical record ANESTHESIA: Medication Administered by: Nurse Sedation Type: Moderate sedation Sedation Supervision start time: 815 Sedation Supervision end time: 822 EBL: Minimal PROCEDURE INDICATION: The patient with low back pain and radiculitis symptoms unresponsive to conservative treatment. Fluoroscopy was used to optimize visualization of the needle placement and to maximize safety. PROCEDURE DESCRIPTION / TECHNIQUE: The patient was seen and identified in the preoperative area. Risks, benefits, complications including but not limited to infections, bleeding, allergic reaction to medications, nerve damage and incomplete pain relief, as well as alternatives to the procedure were discussed with the patient. The patient agreed to proceed with the procedure and signed the consent. IV was started if indicated above, and vital signs were stable. Patient was taken to the OR and time out was completed. The patient was placed in the prone position on procedure table and a pillow was placed under the abdomen to reduce lumbar lordosis. The lumbosacral area was prepped and draped in the usual sterile fashion. Vitals were closely monitored during the procedure. Using anterior-posterior fluoroscopy, the L5-S1 interlaminar space was iden tified and the skin over this site was marked and then infiltrated with 1% lidocaine subcutaneously. Subsequently, a 20-gauge Tuohy epidural needle was inserted and advanced toward the epidural space using the Loss of resistance technique and guided by AP and lateral fluoroscopy. The correct needle position in the epidural space was verified with the injection of 1 mL of Omnipaque 180 contrast to observe an acceptable epidurogram, after negative aspiration for blood and CSF and in the absence of paresthesias. Again after negative aspiration, a 3 ml mixture containing 40mg of depomedrol and 2 ml of preservative free Normal Saline was injected and a washout of epidurogram was seen. Needle was withdrawn intact, skin was cleansed, and bandages were applied. COMPLICATIONS: None DISPOSITION / PLANS: The patient was placed in a supine position and transferred to the recovery area in a stable condition for observation. There was no evidence of lower extremity motor or sensory deficit after the procedure. Patient was discharged from the recovery room after meeting discharge criteria. Home discharge instructions were given to the patient by the staff. The patient was reexamined prior to discharge. The patient will follow up as directed.
[2022-06-03] MEDS ORDERED: IV FLUID CONTINUATION 1,000 ML IV ONE (08:25)
--- NOTE | 2022-06-03 08:36 | FL ---
EXAMINATION TYPE: FL guided pain mgmt statistic DATE OF EXAM: 06/03/2022 HISTORY: Fluoroscopy time 1 seconds of fluoroscopy provided. IMPRESSION: 1. Fluoroscopy time.
[2022-06-03 08:43] VITALS: BP 101/61; PULSE 66
== END 2022-06-03 09:04 | disposition home or self-care (01) ==
LOC: ORPAIN 07:37
PROVIDERS: ATTEND Hospitalist
DX: M54.16 Radiculopathy, lumbar region (principal); Z88.5 Allergy status to narcotic agent; Z88.8 Allergy status to other drugs, medicaments and biological substances
CPT/HCPCS: 62323; J2250; J1030; J3010; Q9966

== ENCOUNTER → 2022-07-03 | Outpatient (CLI) | payer MEDICARE, BC ==
[2022-07-03 11:01] VITALS: BP 136/80; PULSE 77; RESP 18; TEMP 98.2
--- NOTE | 2022-07-03 15:27 | P.PAINPG ---
PQRS Measure Charge Sheet Comment: A 76 yr old female with a history of severe and chronic low back pain x 5 mo s/p fall in parking lot secondary to lumbar DDD and spondylosis with facet arthropathy without myelopathy presents today for evaluation s/p ANGELIQUE L5-S1. Pt states she experienced 85% pain relief x 4 wks s/p procedure. Pain level is c urrently at 4 /10 in intensity, constant, localized in the lower lumbar spine, dull in character w shooting towards the L glutes/ hip. Pain is provoked by sitting for periods of 15 min or more. Pain is alleviated with heat, meds (Mobic from Dr Mason, [facility]), lay on her R side, repositioning and rest. Interventional pain procedures completed include ANGELIQUE L5-S1 Patient is currently on Mobic Patient denies any side effects of the medication(s), denies excessive drowsiness or sleepiness, denies suicidal ideation and reports that the current pain medication is helping to control the pain and improve activities of daily living. Patient denies any motor or sensory deficits. Patient denies any fever or night sweats, denies any change in the bowel movements or urination. Physical Examination: -Constitutional: Cooperative. Not in acute distress . - Neurologic: Cranial nerve II to XII intact. No focal neurological deficits. - Psychatric: Alert & oriented x 3. Matching mood & appropriate affect. Judgment and insight intact. - Musculoskeletal: Cervical spine: Muscle bulk/ tone/ strength in the bilateral upper extremities normal Vertebral body tenderness to palpation over Spurling test positive Distraction test positive Facet loading test positive Thoracic spine Muscle bulk / tone/ strength in the bilateral paraspinal muscles normal Vertebral body tender to palpation over Facet loading test positive Lumbar spine: Motor bulk/ tone/ strength lower extremities , thigh and legs : 5/5 Deep tendon reflexes : Normal Knee Jerk. Normal Ankle Jerk . Vertebral body tenderness to palpation over Lumbar Facet Loading Test positive Straight Leg Raise: positive at 30 degrees right side/ left side Gaenslen's Test positive Sacral spine : Severe tenderness over the Sacroiliac joint: right side / left side Range of motion: Flexion of the lumbar spine <60 degrees Range of motion: Extension of the lumbar spine <20 degrees Gaenslen's Test positive Francisco test: positive right side / left side Thigh Thrust Test Sacral Thrust Test Assessment and plan: Chronic low back pain secondary to lumbar degenerative disc disease, spondylosis with facet arthropathy without myelopathy Pt exhibited sufficient and substantial pain relief w prior procedure. She will manage residual pain at home and may return to our clinic on an as needed basis. All patient questions answered I have spent less than 30 minutes on patient care today. Dr Patel was available by phone for the evaluation of this patient. The time was used to review the medical records including relevant urine studies and Prescription history (MAPs), review of the available imaging, evaluation and examination of the patient, coordination of care with the medical staff and if applicable referring physicians, as well as creation of the medical record PQRS Narrative: Smoking Status Never smoker Hx Alcohol Use (MH) No Home Medications: Ambulatory Orders ALPRAZolam [Xanax] 0.5 mg PO BID PRN 06/23/17 Budesonide/Formoterol Fumarate [Symbicort 160-4.5 Mcg Inhaler] 2 puff INHALATION BID 06/23/17 Calcium Carbonate [Calcium] 1,200 mg PO DAILY 06/23/17 Levothyroxine Sodium [Synthroid] 50 mcg PO DAILY 06/23/17 Losartan [Cozaar] 50 mg PO DAILY 06/23/17 Montelukast [Singulair] 10 mg PO HS 06/23/17 C,E,Zinc,Copper 11/Sjxdr6l/Lut [Ocuvite Adult 50 Plus Softgel] 1 each PO DAILY 08/09/19 Sertraline HCl [Zoloft] 100 mg PO DAILY 08/09/19 Donepezil HCl [Aricept] 5 mg PO HS 12/17/20 gemfibroziL [Lopid] 600 mg PO BID 12/17/20 Pantoprazole Sodium [Protonix] 40 mg PO HS 02/28/21 Meloxicam [Mobic] 7.5 mg PO DAILY 05/30/22 Controlled Substance Measures - Controlled Substance Measures Is patient prescribed a controlled substance at discharge?: No
== END ==
LOC: PNWHC3 09:13
PROVIDERS: ATTEND Specialist
DX: M47.816 Spondylosis without myelopathy or radiculopathy, lumbar region (principal); M51.36 Other intervertebral disc degeneration, lumbar region; G89.29 Other chronic pain; Z88.6 Allergy status to analgesic agent; Z88.8 Allergy status to other drugs, medicaments and biological substances
CPT/HCPCS: 99211

== ENCOUNTER → 2023-04-15 | Outpatient (CLI) | payer MEDICARE, BC ==
[2023-04-15 10:55] LABS: Basophils # (A) 0.04 X 10*3/uL (0.00-0.10); Basophils % (A) 0.9 %; Eosinophils % (A) 4.6 %; HGB 12.2 d/dL (12.0-15.0); Immature Grans, Automated 0 %; Lymphocytes # (A) 1.21 X 10*3/uL (0.90-5.00); MCHC 32.1 d/dL (32.0-37.0); MCV 93.6 FL (80.0-97.0); Mean Platelet Volume 11.3 FL (9.5-12.2); Monocytes # (A) 0.45 X 10*3/uL (0.20-1.00); Monocytes % (A) 10.4 %; NRBC Per 100 WBC 0 X 10*3/uL (0.00-0.01); Neutrophils # (A) 2.42 X 10*3/uL (1.80-7.70); Neutrophils % (A) 56.1 %; Platelet Count 408 X 10*3/uL (140-440); RBC 4.06 X 10*6/uL (4.10-5.20); RDW 13.2 % (11.5-14.5); WBC 4.32 X 10*3/uL (4.50-10.00)
[2023-04-15 18:03] LABS: ALT 26 U/L (8-44); AST 24 U/L (13-35); Albumin 4.5 d/dL (3.8-4.9); Albumin/Globulin Ratio 1.73 Ratio (1.60-3.17); Alkaline Phosphatase 100 U/L (41-126); Blood Urea Nitrogen 23.5 mg/dL (9.0-27.0); Calcium 10.2 mg/dL (8.7-10.3); Carbon Dioxide 26.5 mmol/L (21.6-31.8); Chloride 104 mmol/L (96-109); Chol/HDL Ratio 4.47 Ratio; Globulin 2.6 d/dL (1.6-3.3); Glucose 92 mg/dL (70-110); LDL Cholesterol,Calculated 152.7 mg/dL (0.0-131.0); Potassium 4.4 mmol/L (3.5-5.5); Sodium 141 mmol/L (135-145); T4, Free (Free Thyroxine) 1.06 ng/dL (0.80-1.80); Total Bilirubin 0.4 mg/dL (0.3-1.2); Total Protein 7.1 d/dL (6.2-8.2); VLDL Calculation 15.66 mg/dL (5.00-40.00)
== END | disposition home or self-care (01) ==
LOC: LABWHC1 07:39
PROVIDERS: ATTEND Internal Medicine Critical Care Medicine
DX: Z00.00 Encounter for general adult medical examination without abnormal findings (principal); I10 Essential (primary) hypertension; E03.9 Hypothyroidism, unspecified; D64.9 Anemia, unspecified; F41.9 Anxiety disorder, unspecified; J45.909 Unspecified asthma, uncomplicated; E78.00 Pure hypercholesterolemia, unspecified; Z86.79 Personal history of other diseases of the circulatory system
CPT/HCPCS: 36415; 80053; 80061; 82306; 83036; 84439; 84443; 85025